=== PATIENT | female | born 1970 | race Caucasian/White ===

== ENCOUNTER 2018-08-01 07:06 | Inpatient (IN) | payer MEDICAID ==
--- OUTSIDE RECORDS SUMMARY | 2018-08-01 07:08 | XMS REPORT ---
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
--- OUTSIDE RECORDS SUMMARY | 2018-08-01 07:08 | XMS REPORT ---
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 Problem Malignant neoplasm of pancreas, C25.9 Active unspecified Problem Port-a-cath in place Z95.828 Active Problem Dietary surveillance and counseling Z71.3 Active Problem Neoplasm related pain (acute) G89.3 Active (chronic) Problem History of chemotherapy Z92.21 Active Assessment Tobacco dependence syndrome F17.200 Active Assessment Port-a-cath in place Z95.828 Active Assessment Neuropathy G62.9 Active Assessment Depression with anxiety F41.8 Active Assessment 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 Assessment 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 Assessment History of chemotherapy Z92.21 Active Assessment Neoplasm related pain (acute) G89.3 Active (chronic) Problem Neuropathy G62.9 Active Medications Medication Code Code Instructions Start End Status Dosage System Date Date Nicotine [facility] 48858942083 Jun 16Jun Active as MG/24HR 2017 Transdermal 2018 Once a day Chantix Continuing ND 17154901261 1 MG Orally Dec Inactive 1 tablet Month Craig Twice a day 2017 Xanax [facility] 36782971887 0.5 MG Orally Active 1 tablet Twice a day as needed for anxiety Zoloft ND 73402857298 100 MG Orally Active 1 tablet Once a day Methadone HCl ND 31209092295 10 MG Orally Active 1 tablet Once a day Senokot S [facility] 23502668360 8.6-50 MG Active 1 tablet Orally Once a in the day evening as needed Ibuprofen ND 07872460468 600 MG Orally Active 1 tablet Three times a with food day or milk as needed ProAir HFA [facility] 02412440605 108 (90 Base) Jun 09, Active 2 puffs as MCG/ACT 2017 needed Inhalation every 6 hrs Gabapentin [facility] 71580385893 300 MG Orally Active 1 capsule Three times a day Omeprazole [facility] 10713883599 20 MG Orally Active 1 capsule Once a day Prochlorperazine [facility] 42458672692 10 MG Orally Active 1 tablet Maleate ever 6 - 8 as needed hours PRN for Nausea Zofran [facility] 78236384888 8 MG Orally Active 1 tablet every 8 hours as needed PRN for N/V Lidocaine HCl [facility] [address]184 2.5 % Active apply 30 Externally minutes once prior to PAC access Morphine Sulfate [facility] 21654154905 30 MG Orally Active 1 tablet every 8 hours as needed PRN PNV NDC 0 orally once Active 1 tab daily Creon [facility] 45023365334 [address] Active 1-3 cap UNIT Orally with meals 3-5 times per and snacks day Results No Known Results Summary Purpose eClinicalWorks Submission
--- OUTSIDE RECORDS SUMMARY | 2018-08-01 07:08 | XMS REPORT ---
:1970 Author Organization eClinicalWorks Care Team Providers Name Role Phone Sam Burke Provider Role Unavailable Allergies No Known Allergies Problems Problem Type Condition Code Onset Dates Condition Status Problem Depression with anxiety F41.8 Active Problem Tobacco dependence syndrome F17.200 Active Problem Tobacco abuse counseling Z71.6 Active Assessment Tobacco dependence syndrome F17.200 Active Problem Neuropathy G62.9 Active Problem Secondary [...] of chemotherapy Z92.21 Active Medications Medication Code Code Instructions Start End Status Dosage System Date Date Nicotine Step NDC 92032039924 14 MG/24HR Jun 17, Jul 01, Active 1 patch to 2 Transdermal 2017 2018 skin Once a day Nicotine Step NDC 81772770761 21 MG/24HR Jun 17, Jul 29, Active 1 patch to 1 Transdermal 2017 2018 skin Once a day Nicotine Step NDC 81202553397 7 MG/24HR Jun 17, Jul 01, Active 1 patch to 3 Transdermal 2017 2018 skin Once a day Nicotine ND 43446544288 21-14-7 MG/24HR Jun 16, Inactive as directed Transdermal 2018 Once a day Results No Known Results Summary Purpose eClinicalWorks Submission
[2018-08-01] MEDS ORDERED: ALBUTEROL 2.5 MG/3 ML NEB SOL ONE ×2 (07:34→08:34)
[2018-08-01] MEDS ORDERED: IPRATROPIUM BROM 0.5MG/2.5ML ONE (07:34)
[2018-08-01] MEDS ORDERED: Magnesium Sulfate 2gm IVPB 2 G/50 ML BAG IV ONE (07:34)
[2018-08-01] MEDS ORDERED: METHYLPREDNISOLONE 125 MG INJ ONE (07:34)
[2018-08-01 08:01] LABS: Absolute Lymphocytes (CBC) 0.9 K/uL (0.7-4.9); Absolute Neutrophil 6.9 K/uL (1.8-8.0); Basophils % 0.2 % (0-1.3); Hematocrit 37.1 % (36.0-45.0); Lymphocytes % 11.4 % (15.3-44.8); MPV 7.5 fL (7.6-11.3); Monocytes % 0.2 % (3.3-12.3); RBC Red Blood Cell Count 4.03 M/uL (3.86-4.86)
[2018-08-01 08:17] LABS: BUN Blood Urea Nitrogen 13 mg/dL (7-18); Bicarbonate 31 mmol/L (21-32); Glucose Level 110 mg/dL (74-106); Potassium 3.5 mmol/L (3.5-5.1); Sodium Level 142 mmol/L (136-145)
--- NOTE | 2018-08-01 08:46 | RAD REPORT ---
EXAM DESCRIPTION: RAD - Chest Single View - 08/01/2018 8:01 am CLINICAL HISTORY: Cough, dyspnea, unknown pancreatic carcinoma metastatic to the lungs COMPARISON: CT chest July 08, 2018 TECHNIQUE: AP portable chest image was obtained 0756 hours . FINDINGS: There are numerous large rounded metastatic masses scattered throughout both lung mckeon. Pattern is grossly stable from the CT chest study of July 08. Size and number of masses obscures mu ch of the lung parenchyma. An acute infiltrative process is not seen. No pulmonary edema identifiable . Heart and vasculature are normal. No measurable pleural effusion and no pneumothorax. No acute bony abnormality seen. No acute aortic findings suspected. IMPRESSION: Numerous large metastatic masses scattered throughout the lung parenchyma grossly stable from July 08 CT imaging very Superimposed infiltrate, pulmonary edema or failure not identified.
[2018-08-01 09:00] LABS: Anisocytosis SLIGHT; Blood Morphology Comment NOTED (NOT SEEN); Platelet Estimate ADEQ; Urine White Blood Cell Casts OK
--- NOTE | 2018-08-01 09:13 | EDPHYS ---
Physician Documentation [facility] Name: Shy Easley Age: 48 yrs Sex: Female : 1970 Arrival Date: 08/01/2018 Time: 07:08 Bed 20 Private MD: Burke Vargas ED Physician Arnav Sheppard HPI: 08/01 07:54 This 48 yrs old Female presents to ER via Wheelchair with complaints of kb Breathing Difficulty. 07:54 The patient has shortness of breath at rest. Onset: The symptoms/episode began/occurred kb last night. Duration: The symptoms are continuous. The patient's shortness of breath is aggravated by exertion, is alleviated by nothing. Associated signs and symptoms: The patient has no apparent associated signs or symptoms. Severity of symptoms: At their worst the symptoms were moderate in the emergency department the symptoms are unchanged. The patient has not experienced similar symptoms in the past. The patient has not recently seen a physician. Pt reports shortness of breath that started last night. recently diagnosed with the flu. Pt has pancreatic cancer with mets to the lung and stomach, on weekly chemo. 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 - Social history:: Smoking status: Patient uses tobacco products, smokes one pack cigarettes per day. - Ebola Screening: : Patient negative for fever greater than or equal to 101.5 degrees Fahrenheit, and additional compatible Ebola Virus Disease symptoms Patient denies exposure to infectious person Patient denies travel to an Ebola-affected area in the 21 days before illness onset No symptoms or risks identified at this time. ROS: 07:54 Constitutional: Negative for fever, chills, and weight loss, Cardiovascular: Negative kb for chest pain, palpitations, and edema, Abdomen/GI: Negative for abdominal pain, nausea, vomiting, diarrhea, and constipation, Back: Negative for injury and pain, : Negative for injury, bleeding, discharge, and swelling, MS/Extremity: Negative for injury and deformity, Skin: Negative for injury, rash, and discoloration, Neuro: Negative for headache, weakness, numbness, tingling, and seizure. 07:54 Respiratory: Positive for dyspnea on exertion, shortness of breath, Negative for cough, hemoptysis, orthopnea, pleurisy, sputum production, wheezing. Exam: 07:53 Constitutional: This is a well developed, well nourished patient who is awake, alert, kb and in no acute distress. Head/Face: Normocephalic, atraumatic. Chest/axilla: Normal chest wall appearance and motion. Nontender with no deformity. No lesions are appreciated. Cardiovascular: Regular rate and rhythm with a normal S1 and S2. No gallops, murmurs, or rubs. Normal PMI, no JVD. No pulse deficits. Abdomen/GI: Soft, non-tender, with normal bowel sounds. No distension or tympany. No guarding or rebound. No evidence of tenderness throughout. Back: No spinal tenderness. No costovertebral tenderness. Full range of motion. Skin: Warm, dry with normal turgor. Normal color with no rashes, no lesions, and no evidence of cellulitis. MS/ Extremity: Pulses equal, no cyanosis. Neurovascular intact. Full, normal range of motion. Neuro: Awake and alert, GCS 15, oriented to person, place, time, and situation. Cranial nerves II-XII grossly intact. Motor strength 5/5 in all extremities. Sensory grossly intact. Cerebellar exam normal. Normal gait. 07:53 Respiratory: mild respiratory distress is noted, Respirations: labored breathing, that is mild, that is moderate, Breath sounds: decreased breath sounds, that are moderate, are located in both bases, wheezing: that is moderate, is scattered. Vital Signs: 07:14 BP 139 / 69; Pulse 90; Resp 26 S; Temp 98.3(O); Pulse Ox 92% on R/A; Weight 88 kg; em Height 5 ft. 4 in. (162.56 cm); Pain 9/10; 07:40 Pulse Ox 98% on Nebulizer Mask; em 07:58 BP 109 / 51; Pulse 87; Resp 24; Pulse Ox 93% on 2 lpm NC; em 08:58 BP 120 / 68; Pulse 97; Resp 28; Pulse Ox 88% on R/A; em 09:33 BP 121 / 55; Pulse 95; Resp 26; Pulse Ox 93% on 2 lpm NC; Pain 9/10; em 10:35 BP 102 / 47; Pulse 93; Resp 26; Pulse Ox 90% on 2 lpm NC; bp 12:05 BP 122 / 60; Pulse 84; Resp 24; Pulse Ox 91% ; bp 07:14 Body Mass Index 33.30 (88.00 kg, 162.56 cm) em MDM: 07:16 Patient medically screened. kb 07:53 Data reviewed: vital signs, nurses notes. kb 07:59 Data interpreted: Pulse oximetry: on room air is 92 %. Interpretation: acceptable. kb 09:07 Counseling: I had a detailed discussion with the patient and/or guardian regarding: the kb historical points, exam findings, and any diagnostic results supporting the discharge/admit diagnosis, lab results, radiology results, the need for further work-up and treatment in the hospital. Physician consultation: Tahira Menon MD was contacted at 09:07, regarding admission, to the telemetry unit. patient's condition, and will see patient in ED, shortly. ED course: Pt O2 sat 88-91% on room air after interventions. Will admit for obs. Pt has no home interventions for respiratory distress/SOB. . 08/01 07:21 Order name: CBC with Diff; Complete Time: 09:04 kb 08/01 07:21 Order name: Basic Metabolic Panel; Complete Time: 08:23 kb 08/01 07:21 Order name: Blood Culture Adult (2) kb 08/01 07:21 Order name: Lactate; Complete Time: 09:04 kb 08/01 07:21 Order name: Procalcitonin; Complete Time: 08:46 kb 08/01 07:21 Order name: Flu; Complete Time: 08:23 kb 08/01 07:21 Order name: Chest Single View XRAY; Complete Time: 08:51 kb 08/01 08:15 Order name: CBC Smear Scan; Complete Time: 09:04 EDMS 08/01 13:25 Order name: Lactate Sepsis 2 HR Follow-up; Complete Time: 13:26 EDMS 08/01 07:21 Order name: IV Start; Complete Time: 07:49 kb 08/01 09:31 Order name: Diet Regular; Complete Time: 09:32 em Administered Medications: 07:35 Drug: DuoNeb (3:1) (2.5 mg - 0.5 mg) 3 ml Route: Nebulizer; em 08:06 Follow up: Response: No adverse reaction; Marked relief of symptoms em 07:40 Drug: Magnesium Sulfate 2 grams Route: IVPB; Infused Over: 2 hrs; Site: left em antecubital; 09:00 Follow up: IV Status: Completed infusion iw 08:00 Drug: SOLU-Medrol 125 mg Route: IVP; Site: left antecubital; iw 08:23 Follow up: Response: No adverse reaction em 08:27 Drug: Albuterol 2.5 mg Route: Inhalation; em 08:58 Follow up: Response: No adverse reaction; Marked relief of symptoms em 08:27 Drug: Albuterol 2.5 mg Route: Inhalation; em 08:27 Drug: Albuterol 2.5 mg Route: Inhalation; em 09:17 Drug: morphine 4 mg Route: IVP; Site: left antecubital; iw 09:47 Follow up: Response: No adverse reaction em 12:03 Drug: morphine 4 mg Route: IVP; Site: left antecubital; bp 13:48 Follow up: Response: No adverse reaction; Pain is decreased iw 12:03 Drug: Zofran 4 mg Route: IVP; Site: left antecubital; bp 13:48 Follow up: Response: No adverse reaction iw Disposition: 18:50 Co-signature as Attending Physician, Arnav Sheppard MD Available for consultation at ps1 all times . Disposition: 08/01/18 09:11 Hospitalization ordered by Tahira Menon for Observation. Preliminary diagnosis are Hypoxia, Pancreatic cancer with metastasis to lung, Dyspnea. - Bed requested for Telemetry/MedSurg (observation). - Status is Observation. iw - Condition is Stable. - Problem is an acute exacerbation. - Symptoms are unchanged. UTI on Admission? No Signatures: Dispatcher [employer] Baylee Cortez FNP-C FNP-Ckb Webb, Martha RN NICHO Aristides Cuevas, SIGNAL TOWER DIRECTOR SIGNAL TOWER DIRECTOR em Swapna Lopez, NICHO TORRE iw Trey Soares, RN Arnav Ty MD MD ps1 Corrections: (The following items were deleted from the chart) 07:55 07:54 Pt reports shortness of breath that started last night. recently kb diagnosed with the flu. Pt has pancreatic cancer with mets to the lung and stomach. kb 12:53 09:11 Hospitalization Ordered by Tahira Menon MD for Observation. Preliminary diagnosis mw is Hypoxia; Pancreatic cancer with metastasis to lung; Dyspnea. Bed requested for Telemetry/MedSurg (observation). Status is Observation. Condition is Stable. Problem is an acute exacerbation. Symptoms are unchanged. UTI on Admission? No. kb 14:13 12:53 08/01/2018 09:11 Hospitalization Ordered by Tahira Menon MD for Observation. iw Preliminary diagnosis is Hypoxia; Pancreatic cancer with metastasis to lung; Dyspnea. Bed requested for Telemetry/MedSurg (observation). Status is Observation. Condition is Stable. Problem is an acute exacerbation. Symptoms are unchanged. UTI on Admission? No. mw
--- NOTE | 2018-08-01 09:13 | ER ---
Nurse's Notes [facility] Name: Shy Easley Age: 48 yrs Sex: Female : 1970 Arrival Date: 08/01/2018 Time: 07:08 Bed 20 Private MD: Burke Vargas Diagnosis: Hypoxia;Pancreatic cancer with metastasis to lung;Dyspnea Presentation: 08/01 07:14 Presenting complaint: Patient states: shortness of breath since last night with cough, em daughter states her was dx with the flu yesterday, denies fever, pt also has hx of pancreatic cancer that metastasized to lungs, lymph nodes, and lining of the stomach, pt wheezy cinda. RR 26, SPO2 92% RA. 07:14 Transition of care: patient was not received from another setting of care. Onset of em symptoms was July 31, 2017. Risk Assessment: Do you want to hurt yourself or someone else? Patient reports no desire to harm self or others. Initial Sepsis Screen: Does the patient meet any 2 criteria? RR > 20 per min. HR > 90 bpm. Does the patient have a suspected source of infection? Yes: Productive cough/pneumonia. Care prior to arrival: None. 07:14 Method Of Arrival: Wheelchair em 07:42 Acuity: BARBER 3 iw Triage Assessment: 07:14 General: Appears uncomfortable, Behavior is cooperative, anxious. Pain: Complains of em pain in left lower quadrant Pain currently is 9 out of 10 on a pain scale. Neuro: Level of Consciousness is awake, alert, obeys commands, Oriented to person, place, time, situation. Cardiovascular: Denies chest pain. Respiratory: Reports shortness of breath cough that is productive, Airway is patent Respiratory effort is even, Respiratory pattern is tachypnea Breath sounds with wheezes bilaterally. Onset: The symptoms/episode began/occurred yesterday, the patient has moderate shortness of breath. 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 - Social history:: Smoking status: Patient uses tobacco products, smokes one pack cigarettes per day. - Ebola Screening: : Patient negative for fever greater than or equal to 101.5 degrees Fahrenheit, and additional compatible Ebola Virus Disease symptoms Patient denies exposure to infectious person Patient denies travel to an Ebola-affected area in the 21 days before illness onset No symptoms or risks identified at this time. Screenin:14 Abuse screen: Denies threats or abuse. Nutritional screening: No deficits noted. em Tuberculosis screening: No symptoms or risk factors identified. Fall Risk None identified. Assessment: 07:14 General: Appears uncomfortable, Behavior is cooperative, anxious. Pain: Complains of em pain in left lower quadrant Pain currently is 9 out of 10 on a pain scale. Neuro: Level of Consciousness is awake, alert, obeys commands, Oriented to person, place, time, situation. Cardiovascular: Denies chest pain, Rhythm is regular. Respiratory: Airway is patent Respiratory effort is even, Respiratory pattern is tachypnea. GI: Abdomen is round non-distended. : No signs and/or symptoms were reported regarding the genitourinary system. Derm: Skin is intact, Skin is pink, warm \T\ dry. Musculoskeletal: Range of motion: intact in all extremities. 07:14 Reassessment: I agree with assessment completed by Mansi Cuevas LVN . aa5 08:00 Reassessment: Patient appears in no apparent distress at this time. Patient and/or em family updated on plan of care and expected duration. Pain level reassessed. Patient is alert, oriented x 3, equal unlabored respirations, skin warm/dry/pink. SPO2 92% RA, placed on 2 L via NC Patient states symptoms have improved. 09:00 Reassessment: Patient appears in no apparent distress at this time. Patient and/or em family updated on plan of care and expected duration. Pain level reassessed. Patient is alert, oriented x 3, equal unlabored respirations, skin warm/dry/pink. reports taking morphine and xanax at home, provider notified, new medication orders received Patient states feeling better. Patient states symptoms have improved. 09:51 Reassessment: Patient appears in no apparent distress at this time. Patient and/or em family updated on plan of care and expected duration. Pain level reassessed. Patient is alert, oriented x 3, equal unlabored respirations, skin warm/dry/pink. breakfast tray given, pending room assignment. 10:19 Reassessment: RECD REPORT FROM MANSI RN. 48YO HF P/W SOB/COUGH x1 WK. ADMIT IN PROCESS bp FOR MT LUNG CA. Vital Signs: 07:14 BP 139 / 69; Pulse 90; Resp 26 S; Temp 98.3(O); Pulse Ox 92% on R/A; Weight 88 kg; em Height 5 ft. 4 in. (162.56 cm); Pain 9/10; 07:40 Pulse Ox 98% on Nebulizer Mask; em 07:58 BP 109 / 51; Pulse 87; Resp 24; Pulse Ox 93% on 2 lpm NC; em 08:58 BP 120 / 68; Pulse 97; Resp 28; Pulse Ox 88% on R/A; em 09:33 BP 121 / 55; Pulse 95; Resp 26; Pulse Ox 93% on 2 lpm NC; Pain 9/10; em 10:35 BP 102 / 47; Pulse 93; Resp 26; Pulse Ox 90% on 2 lpm NC; bp 12:05 BP 122 / 60; Pulse 84; Resp 24; Pulse Ox 91% ; bp 07:14 Body Mass Index 33.30 (88.00 kg, 162.56 cm) em ED Course: 07:08 Patient arrived in ED. mr 07:09 Burke Vargas DO is Private Physician. mr 07:14 Arm band placed on. em 07:14 Patient has correct armband on for positive identification. Placed in gown. Bed in low em position. Call light in reach. Side rails up X2. Adult w/ patient. stone carriage operator on. Pulse ox on. NIBP on. Warm blanket given. Pillow given. 07:16 Baylee Owens FNP-C is PHCP. kb 07:16 Arnav Sheppard MD is Attending Physician. kb 07:21 Mansi Cuevas LVN is Primary Nurse. em 07:40 Inserted saline lock: 20 gauge in left antecubital area, using aseptic technique. Blood em collected. 07:40 Initial lab(s) drawn, by me, sent to lab. First set of blood cultures drawn by me, Flu em and/or RSV swab sent to lab. 07:42 Triage completed. iw 08:02 Chest Single View XRAY In Process Unspecified. EDMS 09:10 Tahira Menno MD is Hospitalizing Provider. kb 10:06 Primary Nurse role handed off by Mansi Cuevas LVN bp 10:06 Trey Soares, NICHO is Primary Nurse. bp 13:47 No provider procedures requiring assistance completed. Patient admitted, IV remains in iw place. Administered Medications: 07:35 Drug: DuoNeb (3:1) (2.5 mg - 0.5 mg) 3 ml Route: Nebulizer; em 08:06 Follow up: Response: No adverse reaction; Marked relief of symptoms em 07:40 Drug: Magnesium Sulfate 2 grams Route: IVPB; Infused Over: 2 hrs; Site: left em antecubital; 09:00 Follow up: IV Status: Completed infusion iw 08:00 Drug: SOLU-Medrol 125 mg Route: IVP; Site: left antecubital; iw 08:23 Follow up: Response: No adverse reaction em 08:27 Drug: Albuterol 2.5 mg Route: Inhalation; em 08:58 Follow up: Response: No adverse reaction; Marked relief of symptoms em 08:27 Drug: Albuterol 2.5 mg Route: Inhalation; em 08:27 Drug: Albuterol 2.5 mg Route: Inhalation; em 09:17 Drug: morphine 4 mg Route: IVP; Site: left antecubital; iw 09:47 Follow up: Response: No adverse reaction em 12:03 Drug: morphine 4 mg Route: IVP; Site: left antecubital; bp 13:48 Follow up: Response: No adverse reaction; Pain is decreased iw 12:03 Drug: Zofran 4 mg Route: IVP; Site: left antecubital; bp 13:48 Follow up: Response: No adverse reaction iw Outcome: 09:11 Decision to Hospitalize by Provider. kb 13:47 Admitted to Tele accompanied by tech, via stretcher, room 225, with oxygen, with chart, iw Report called to NICHO Roque 13:47 Condition: good 13:47 Discharge instructions given to patient, Instructed on the need for admit. 14:13 Patient left the ED. iw Signatures: Dispatcher [employer] EDMS Baylee Owens, SURESH AMBRIZP-Cklavonne Shy Andres mr Mansi Cuevas LVN CYBER SECURITY ANALYST em Swapna Lopez, RN RN iw Kori Otero RN RN aa5 Trey Soares RN RN bp Corrections: (The following items were deleted from the chart) 08:46 08:00 Reassessment: Patient appears in no apparent distress at this time. Patient em and/or family updated on plan of care and expected duration. Pain level reassessed. Patient is alert, oriented x 3, equal unlabored respirations, skin warm/dry/pink. Patient states symptoms have improved. em 09:36 09:00 Reassessment: Patient appears in no apparent distress at this time. Patient em and/or family updated on plan of care and expected duration. Pain level reassessed. Patient is alert, oriented x 3, equal unlabored respirations, skin warm/dry/pink. reports taking morphine and xanax at home, provider notified, new medication orders received iw 09:37 09:33 BP 121 / 55; Pulse 95bpm; Resp 26bpm; Pulse Ox 93% 2 lpm Nasal Cannula; iw em
[2018-08-01] MEDS ORDERED: MORPHINE 4 MG/ML SYR ONE ×2 (09:23→12:07)
[2018-08-01] MEDS ORDERED: ONDANSETRON 4 MG/2 ML VIAL ONE (12:07)
[2018-08-01] MEDS ORDERED: ACETAMINOPHEN 500 MG TAB PO PRN (13:35)
[2018-08-01] MEDS: NA CHLORIDE 0.9% 1,000 ML IV SCH ×2 (14:32→23:35)
[2018-08-01] MEDS ORDERED: FUROSEMIDE 20 MG/ 2ML VIAL IV ONE (16:45)
[2018-08-01] MEDS: FENTANYL CITR 100 MCG/2 ML IV PRN ×2 (17:11→20:56)
[2018-08-01] MEDS: IPRATROPIUM BROM 0.5MG/2.5ML NEB SCH (20:00)
[2018-08-01] MEDS: ALBUTEROL 2.5 MG/3 ML NEB SOL NEB SCH (20:00)
[2018-08-01] MEDS ORDERED: ALPRAZOLAM 0.5 MG TABLET PO PRN (20:03)
[2018-08-01] MEDS: SERTRALINE HCL 100 MG TAB PO SCH (20:56)
[2018-08-01] MEDS: MORPHINE *EXTENDED RELEASE* 15 MG TAB PO SCH (22:15)
[2018-08-01] MEDS ORDERED: METOPROLOL TAR 50 MG TAB PO ONE (23:10)
[2018-08-01] MEDS: ONDANSETRON 4 MG/2 ML VIAL IV PRN (23:13)
[2018-08-02] MEDS ORDERED: RSI MEDICATION KIT IV ONE (00:43)
[2018-08-02] MEDS ORDERED: MIDAZOLAM HCL 2 MG/2 ML INJ ONE (00:50)
[2018-08-02] MEDS ORDERED: OSELTAMIVIR 75 MG CAP PO ONE (01:22)
[2018-08-02] MEDS ORDERED: HYDROCORTISONE SUC 100 MG INJ IV ONE ×2 (01:23→07:54)
[2018-08-02] MEDS ORDERED: METOPROLOL TARTRATE 5 MG/5 ML INJ IV ONE (01:36)
[2018-08-02] MEDS ORDERED: PROPOFOL 1,000 MG/100 ML VIAL IV ONE (01:46)
[2018-08-02] MEDS: ALBUTEROL 2.5 MG/3 ML NEB SOL NEB SCH ×2 (02:00→07:50)
[2018-08-02] MEDS: IPRATROPIUM BROM 0.5MG/2.5ML NEB SCH ×4 (02:00→19:43)
[2018-08-02] MEDS ORDERED: Levofloxacin 750mg IV 750 MG/150 ML BAG IV SCH (02:00)
[2018-08-02] MEDS ORDERED: PIPERACIL/TAZO 3.375 GM VIAL IV ONE (02:26)
[2018-08-02] MEDS ORDERED: NA CHLORIDE 0.9% 100 ML ONE (02:34)
[2018-08-02] MEDS: PIPER/TAZO/NS 3.375gm 3.375 GM/100 ML BAG IVPB SCH ×2 (02:37→06:00)
[2018-08-02] MEDS ORDERED: VANCOMYCIN 1 GM/250 ML BAG ONE (02:38)
[2018-08-02 02:50] LABS: Arterial Blood Carboxyhemoglob 1.3 % (0-1.5); Blood O2 Saturation 99.9 % (92-98.5)
[2018-08-02] MEDS ORDERED: VANCOMYCIN 500 MG/VIAL ONE (02:52)
[2018-08-02] MEDS ORDERED: VANCOMYCIN 1.5 GM in NA CHLORIDE 0.9% 500 ML IVPB SCH (04:00)
[2018-08-02] MEDS ORDERED: VANCOMYCIN 1.25 GM in NA CHLORIDE 0.9% 250 ML IVPB SCH (04:00)
[2018-08-02] MEDS: LORazepam 2 MG/ML VIAL IV PRN ×6 (04:11→21:47)
[2018-08-02] MEDS ORDERED: NA CHLORIDE 0.9% 250 ML IV ONE (05:00)
[2018-08-02 05:23] LABS: Absolute Lymphocytes (CBC) 0.5 K/uL (0.7-4.9); Absolute Monocytes 0.1 K/uL (0.1-1.3); Absolute Neutrophil 11.1 K/uL (1.8-8.0); Basophils % 0.1 % (0-1.3); Hematocrit 34.9 % (36.0-45.0); Lymphocytes % 4.2 % (15.3-44.8); MPV 7.4 fL (7.6-11.3); Monocytes % 0.9 % (3.3-12.3); RBC Red Blood Cell Count 3.81 M/uL (3.86-4.86)
[2018-08-02 05:24] LABS: Urine Appearance CLEAR; Urine Bilirubin NEGATIVE (NEG); Urine Blood NEGATIVE (NEG); Urine Color YELLOW; Urine Glucose NEGATIVE (NEG); Urine Protein 1+ (NEG); Urine Specific Gravity >=1.030 (1.005-1.030); Urine pH 5.5 (5.0-7.0)
[2018-08-02 05:45] LABS: ALT/SGPT 43 U/L (12-78); AST/SGOT 65 U/L (15-37); Albumin 2.2 g/dL (3.4-5.0); Alkaline Phosphatase 128 U/L (45-117); BUN Blood Urea Nitrogen 16 mg/dL (7-18); Bicarbonate 32 mmol/L (21-32); Bilirubin Total 0.6 mg/dL (0.2-1.0); Glucose Level 136 mg/dL (74-106); Potassium 4.1 mmol/L (3.5-5.1); Protein, Total 6.4 g/dL (6.4-8.2); Sodium Level 144 mmol/L (136-145)
[2018-08-02 05:48] LABS: Urine Microscopic Reflex ORDER UMIC
[2018-08-02 05:58] LABS: Urine Bacteria <20 /HPF (<20); Urine Culture Reflex Order NOT NEEDED; Urine RBC NONE SEEN /HPF (NONE SEEN)
[2018-08-02] MEDS: MORPHINE *EXTENDED RELEASE* 15 MG TAB PO SCH ×2 (06:00→17:00)
[2018-08-02] MEDS ORDERED: NA CHLORIDE 0.9% 500 ML IV ONE (06:21)
[2018-08-02] MEDS: NA CHLORIDE 0.9% 1,000 ML IV SCH ×2 (06:48→15:50)
[2018-08-02] MEDS: FENTANYL CITR 100 MCG/2 ML IV PRN ×5 (07:35→23:30)
[2018-08-02 07:37] LABS: Blood Morphology Comment NOTED (NOT SEEN); Platelet Estimate ADEQ; Urine White Blood Cell Casts OK
[2018-08-02 07:38] LABS: Teardrop Cell 1+
[2018-08-02] MEDS ORDERED: ALBUMIN HUMAN 25% 100 ML IV ONE (07:53)
[2018-08-02] MEDS: OSELTAMIVIR 75 MG CAP PO SCH ×2 (08:33→21:02)
[2018-08-02] MEDS: SERTRALINE HCL 100 MG TAB PO SCH ×2 (08:33→11:52)
--- NOTE | 2018-08-02 08:38 | P.PN ---
Subjective Date of Service: 08/02/18 called to evaluate the patient because her O2 requirements have gone up and she became suddenly unresponsive after talking to nurse all night. Patient's pupils were equal and reactive. However she was struggling to breathe. X-ray showed diffuse metastasis. No antibiotics at this time. The patient will need intubation. Review of Systems is unable to be obtained Physical Examination - Vital Signs Temperature: 97 F Blood Pressure: 102/62 Pulse: 84 Respirations: 23 Pulse Ox (%): 97 - Physical Exam General: Other ( intubated and sedated) Respiratory: Diminished, Rhonchi/gurgles Cardiovascular: Regular rate/rhythm, Normal S1 S2 Gastrointestinal: Soft and benign, Non-distended, No tenderness Musculoskeletal: No clubbing, No swelling - Studies Microbiology Data (last 24 hrs): 08/01/18 07:40 Nasopharnyx Influenza Type A Antigen Screen - Final 08/01/18 07:40 Nasopharnyx Influenza Type B Antigen Screen - Final Assessment & Plan - Problems (Diagnosis) (1) Pancreatic cancer metastasized to intra-abdominal lymph node Current Visit: Yes Status: Acute (2) Pulmonary metastasis Current Visit: Yes Status: Acute (3) Respiratory failure Current Visit: Yes Status: Acute - Plan plan: 1. Mechanical ventilation 2. pulmonary consultation 3. Treatment with Tamiflu and IV antibiotics 4. IV steroids 5. spoke with family - patient's daughter - and at this time patient is a full code 6. GI and DVT prophylaxis Discharge Plan: Home Plan to discharge in: Greater than 2 days - Advance Directives Does patient have a Living Will: No Does patient have a Durable POA for Healthcare: No Critical Care: Yes Time Spent Managing PTS Care (In Minutes): 55
[2018-08-02] MEDS ORDERED: predniSONE 20 MG TAB PO SCH (09:00)
[2018-08-02] MEDS ORDERED: METOPROLOL TAR 50 MG TAB PO SCH (09:00)
[2018-08-02] MEDS ORDERED: HYDROCORTISONE SUC 100 MG INJ IV SCH ×2 (09:00→21:00)
[2018-08-02] MEDS ORDERED: PIPER/TAZO/NS 3.375gm 3.375 GM/100 ML BAG IVPB SCH (09:00)
--- NOTE | 2018-08-02 10:49 | P.CNS ---
Date of Consult: 08/02/18 Chief Complaint: Respiratory failure patient on a ventilator History of Present Illness: Patient is 48 years of age with a history of pancreatic cancer with mets to the lungs admitted with shortness of breath became unresponsive patient was intubated transferred to the ICU currently on a propofol drip patient had hypercapnic hypoxic respiratory failure with acidosis blood pressure is little low DT scan is very abnormal with bilateral lung masses. On Chemo and radiation. Allergies Tetracyclines Allergy (Verified 02/15/17 16:30) Hives Home Medications: ALPRAZolam [Xanax] 0.5 mg PO BID PRN 08/01/18 Dexamethasone [Decadron] 4 mg PO BID 08/01/18 Gabapentin 300 mg PO TID 08/01/18 Morphine Sulfate [Morphine Sulfate ER] 30 mg PO Q8H 08/01/18 Omeprazole 20 mg PO DAILY 08/01/18 Prochlorperazine Maleate [Compazine] 10 mg PO Q8H PRN 08/01/18 Sertraline [Zoloft] 100 mg PO DAILY 08/01/18 Venlafaxine HCl [Venlafaxine HCl ER] 150 mg PO BEDTIME 08/01/18 - Past Medical/Surgical History Diabetic: No -: COPD -: Obesity -: GERD -: Depression -: Tobacco abuse -: Fibromyalgia -: Tonsillectomy -: Appendectomy -: -: Hysterectomy Psychosocial/ Personal History: The patient is . She is originally from [place]. She is visiting her daughter in the area. She has 2 children. 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 - Family History Mother Medical History: Heart disease, Lung disease Notes: COPD Brother Medical History: Heart disease Sister Medical History: Other (see notes) Notes: COPD - Social History Smoking Status: Current every day smoker Alcohol use: No CD- Drugs: No Caffeine use: No Place of Residence: Home Review of Systems is unable to be obtained Physical Examination Temp Pulse Resp BP Pulse Ox 97 F 76 16 96/60 94 08/02/18 09:28 08/02/18 10:00 08/02/18 10:00 08/02/18 10:00 08/02/18 10:00 General: Unresponsive Respiratory: Clear to auscultation bilaterally Cardiovascular: No edema Gastrointestinal: Normal bowel sounds, Soft and benign - Problems (1) Respiratory failure Current Visit: Yes Status: Acute Plan: Patient is 48 years of age with pancreatic cancer with impressive metastases to the lungs admitted with unresponsiveness hypoxic hypercapnic acidotic currently on a ventilator labs reviewed doubt sepsis CT angiogram reading is pending I do not see any obvious blood clots I doubt if he has sepsis patient is a current every day smoker presumed underlying COPD there is currently no evidence of sepsis Dc all antibiotics use IV steroids bronchodilators plan to wean and extubate the discuss with family members regarding DNR Qualifiers: Chronicity: acute on chronic Respiratory failure complication: hypoxia and hypercapnia Qualified Code(s): J96.21 - Acute and chronic respiratory failure with hypoxia; J96.22 - Acute and chronic respiratory failure with hypercapnia
[2018-08-02] MEDS ORDERED: MORPHINE SULFATE 30 MG PO SCH (11:00)
--- NOTE | 2018-08-02 11:10 | P.HP ---
Certification for Inpatient Patient admitted to: Inpatient With expected LOS: >2 Midnights Patient will require the following post-hospital care: None Practitioner: I am a practitioner with admitting privileges, knowledge of patient current condition, hospital course, and medical plan of care. Services: Services provided to patient in accordance with Admission requirements found in Title 42 Section 412.3 of the Code of Federal Regulations Patient History Date of Service: 08/01/18 Reason for admission: Respiratory failure patient on a ventilator History of Present Illness: 48-year-old female with significant past medical history of drug abuse, tobacco abuse, COPD exacerbation pancreatic cancer with mets to lungs intra-abdominal lymph nodes, liver currently on chemotherapy presented to the ED complaining of having some shortness of breath x2. Patient recently this around people from her family that had been diagnosed with influenza pneumonia. Patient did complain of fever and chills at the house as well along with shortness of breath. No sputum production at this time. Negative for cough as well. No other complaints to offer at this time. In the ER patient had extensive workup done along with chest x-ray and CT in which was negative for PE. Patient was thus admitted to the hospital for respiratory distress most likely secondary to her COPD exacerbation. Allergies Tetracyclines Allergy (Verified 02/15/17 16:30) Hives Home Medications: ALPRAZolam [Xanax] 0.5 mg PO BID PRN 08/01/18 Dexamethasone [Decadron] 4 mg PO BID 08/01/18 Gabapentin 300 mg PO TID 08/01/18 Morphine Sulfate [Morphine Sulfate ER] 30 mg PO Q8H 08/01/18 Omeprazole 20 mg PO DAILY 08/01/18 Prochlorperazine Maleate [Compazine] 10 mg PO Q8H PRN 08/01/18 Sertraline [Zoloft] 100 mg PO DAILY 08/01/18 Venlafaxine HCl [Venlafaxine HCl ER] 150 mg PO BEDTIME 08/01/18 - Past Medical/Surgical History Has patient received pneumonia vaccine in the past: No Diabetic: No -: COPD -: Obesity -: GERD -: Depression -: Tobacco abuse -: Fibromyalgia -: Tonsillectomy -: Appendectomy -: -: Hysterectomy Psychosocial/ Personal History: The patient is . She is originally from [place]. She is visiting her daughter in the area. She has 2 children. 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 - Family History Mother -: Heart disease, Lung disease Notes: COPD Brother -: Heart disease Sister -: Other (see notes) Notes: COPD - Social History Smoking Status: Former smoker Alcohol use: No CD- Drugs: No Caffeine use: No Place of Residence: Home Review of Systems 10-point ROS is otherwise unremarkable Physical Examination - Vital Signs Temperature: 97 F Blood Pressure: 96/60 Pulse: 76 Respirations: 16 Pulse Ox (%): 94 - Physical Exam General: Alert, Acute distress HEENT: Atraumatic, PERRLA, Mucous membr. moist/pink, EOMI, Sclerae nonicteric Neck: Supple, 2+ carotid pulse no bruit, No LAD, Without JVD or thyroid abnormality Respiratory: Normal air movement, Expiratory wheezes, Inspiratory wheezes Cardiovascular: Regular rate/rhythm, Normal S1 S2 Gastrointestinal: Normal bowel sounds, Soft and benign, No tenderness Musculoskeletal: No tenderness Integumentary: No rashes Neurological: Normal speech, Normal tone Lymphatics: No axilla or inguinal lymphadenopathy - Studies Microbiology Data (last 24 hrs): 08/01/18 07:40 Nasopharnyx Influenza Type A Antigen Screen - Final 08/01/18 07:40 Nasopharnyx Influenza Type B Antigen Screen - Final Assessment and Plan - Problems (Diagnosis) (1) Respiratory distress Current Visit: Yes Status: Acute Plan: Acute respiratory distress most likely secondary to pulmonary mets versus COPD exacerbation -pulmonology consulted. Awaiting recommendations at this -patient will be started on duo nebs, steroids and oxygen at this time -will monitor closely (2) COPD (chronic obstructive pulmonary disease) Onset Date: 02/17/17 Current Visit: No Status: Chronic Plan: COPD exacerbation -DuoNeb, steroids, oxygen at this time -pulmonology consulted. Appreciated recommendations -CTA to rule out PE -chest without contrast consistent with pulmonary nodule Qualifiers: COPD type: COPD with acute exacerbation Qualified Code(s): J44.1 - Chronic obstructive pulmonary disease with (acute) exacerbation (3) Pancreatic cancer metastasized to intra-abdominal lymph node Current Visit: Yes Status: Acute Plan: Pancreatic cancer with metastasis to lymph nodes. Lungs possible brain at this time as well -currently getting chemotherapy with Oncology here in [place] -will consult oncology for acute illness worsens (4) Depression Onset Date: 02/17/17 Current Visit: No Status: Chronic Qualifiers: Depression Type: unspecified Qualified Code(s): F32.9 - Major depressive disorder, single episode, unspecified (5) GERD (gastroesophageal reflux disease) Onset Date: 02/17/17 Current Visit: No Status: Chronic Qualifiers: Esophagitis presence: esophagitis presence not specified Qualified Code(s) : K21.9 - Gastro-esophageal reflux disease without esophagitis (6) Obesity Onset Date: 02/17/17 Current Visit: No Status: Chronic Qualifiers: Obesity type: unspecified obesity type Obesity classification: adult class 3 (BMI >= 40) Body mass index: BMI 40.0-44.9 (7) Tobacco abuse Onset Date: 02/17/17 Current Visit: No Status: Chronic Discharge Plan: Home Plan to discharge in: 48 Hours - Advance Directives Does patient have a Living Will: No Does patient have a Durable POA for Healthcare: No - Code Status/Comfort Care Code Status Assessed: Yes Critical Care: No
--- NOTE | 2018-08-02 11:14 | P.PN ---
Subjective Date of Service: 08/02/18 Chief Complaint: Respiratory failure patient on a ventilator Patient seen and examined at bedside with RN. Chart reviewed. Case discussed with pulmonology at this time. Overnight patient patient had worsening of her respiratory distress, became hypoxic and had to be intubated and was transferred to the ICU. Currently in ICU doing well no complaints to offer this morning. Review of Systems 10-point ROS is otherwise unremarkable Physical Examination - Vital Signs Temperature: 97 F Blood Pressure: 96/60 Pulse: 76 Respirations: 16 Pulse Ox (%): 94 - Physical Exam General: Mild distress, Other (Intubated) HEENT: Atraumatic, PERRLA, EOMI Neck: Supple, JVD not distended Respiratory: Normal air movement, Expiratory wheezes, Inspiratory wheezes Cardiovascular: Regular rate/rhythm, Normal S1 S2 Gastrointestinal: Normal bowel sounds, No tenderness Musculoskeletal: No tenderness Integumentary: No rashes Neurological: Normal tone, Normal affect Lymphatics: No axilla or inguinal lymphadenopathy - Studies Microbiology Data (last 24 hrs): 08/01/18 07:40 Nasopharnyx Influenza Type A Antigen Screen - Final 08/01/18 07:40 Nasopharnyx Influenza Type B Antigen Screen - Final Medications List Reviewed: Yes Assessment And Plan - Current Problems (Diagnosis) (1) Respiratory distress Current Visit: Yes Status: Acute Plan: Now with respiratory failure most likely secondary to pulmonary mets versus COPD exacerbation. However infection cannot be ruled out -currently intubated -pro calcitonin elevated at this time white count with slight elevation as well. -started on IV antibiotics overnight. -pulmonology consulted. Recommendation appreciated at this time -Dc IV antibiotics -continue with steroids and DuoNeb treatments -weaned off of mechanical ventilator as tolerated -patient on duo nebs, steroids and intubated at this time -the still is currently also on Tamiflu. Will continue at her next 24 hr -monitor patient close (2) COPD (chronic obstructive pulmonary disease) Onset Date: 02/17/17 Current Visit: No Status: Chronic Plan: COPD exacerbation -DuoNeb, steroids, intubated at this time -pulmonology consulted. Appreciated recommendations -CTA negative for PE -chest without contrast consistent with pulmonary nodule most likely meds from pancreatic cancer Qualifiers: COPD type: COPD with acute exacerbation Qualified Code(s): J44.1 - Chronic obstructive pulmonary disease with (acute) exacerbation (3) Pancreatic cancer metastasized to intra-abdominal lymph node Current Visit: Yes Status: Acute Plan: Pancreatic cancer with metastasis to lymph nodes. Lungs possible brain at this time as well -currently getting chemotherapy with Oncology here in [place] -will consult oncology for acute illness worsens (4) Depression Onset Date: 02/17/17 Current Visit: No Status: Chronic Qualifiers: Depression Type: unspecified Qualified Code(s): F32.9 - Major depressive disorder, single episode, unspecified (5) GERD (gastroesophageal reflux disease) Onset Date: 02/17/17 Current Visit: No Status: Chronic Qualifiers: Esophagitis presence: esophagitis presence not specified Qualified Code(s) : K21.9 - Gastro-esophageal reflux disease without esophagitis (6) Obesity Onset Date: 02/17/17 Current Visit: No Status: Chronic Qualifiers: Obesity type: unspecified obesity type Obesity classification: adult class 3 (BMI >= 40) Body mass index: BMI 40.0-44.9 (7) Tobacco abuse Onset Date: 02/17/17 Current Visit: No Status: Chronic - Plan Will monitor here in ICU closely. Will wean as tolerated with mechanical ventilator. Will continue with current management of COPD exacerbation. Discharge Plan: Other Plan to discharge in: Greater than 2 days - Code Status/Comfort Care Code Status Assessed: Yes Critical Care: No
[2018-08-02 11:16] LABS: Absolute Lymphocytes (CBC) 0.3 K/uL (0.7-4.9); Absolute Monocytes 0.1 K/uL (0.1-1.3); Absolute Neutrophil 8.9 K/uL (1.8-8.0); Basophils % 0.5 % (0-1.3); Hematocrit 31.8 % (36.0-45.0); Lymphocytes % 3.7 % (15.3-44.8); MPV 7.2 fL (7.6-11.3); Monocytes % 0.6 % (3.3-12.3); RBC Red Blood Cell Count 3.52 M/uL (3.86-4.86)
[2018-08-02 11:34] LABS: ALT/SGPT 38 U/L (12-78); AST/SGOT 55 U/L (15-37); Albumin 2.5 g/dL (3.4-5.0); Alkaline Phosphatase 114 U/L (45-117); BUN Blood Urea Nitrogen 17 mg/dL (7-18); Bicarbonate 31 mmol/L (21-32); Bilirubin Total 0.5 mg/dL (0.2-1.0); Glucose Level 108 mg/dL (74-106); Potassium 4.2 mmol/L (3.5-5.1); Protein, Total 6.4 g/dL (6.4-8.2); Sodium Level 144 mmol/L (136-145)
[2018-08-02] MEDS ORDERED: PANTOPRAZOLE 40MG TABLET PO SCH (12:00)
[2018-08-02] MEDS: METHYLPREDNISOLONE 40 MG INJ IV SCH ×2 (12:01→16:21)
[2018-08-02] MEDS: Pantoprazole (granules) 40 MG/BLIST PACKET FT SCH (12:08)
[2018-08-02] MEDS: LEVALBUTEROL 1.25 MG/3 ML NEB NEB SCH ×2 (13:00→19:43)
[2018-08-02] MEDS ORDERED: IPRATROPIUM BROM 0.5MG/2.5ML NEB SCH (14:00)
[2018-08-02] MEDS ORDERED: SUCCINYLCHOLINE 20 MG/ML (10 ML) IV ONE (15:52)
[2018-08-02] MEDS ORDERED: VECURONIUM 10 MG/VIAL IV ONE (15:52)
[2018-08-02] MEDS ORDERED: WATER FOR INJ,STERILE 10 ML IV ONE (15:52)
[2018-08-02] MEDS ORDERED: LIDOCAINE 1% MPF 5 ML VIAL IJ ONE (15:52)
[2018-08-02] MEDS ORDERED: VANCOMYCIN 1.75 GM in NA CHLORIDE 0.9% 500 ML IVPB SCH (16:00)
[2018-08-03] MEDS: METHYLPREDNISOLONE 40 MG INJ IV SCH ×3 (00:26→17:09)
[2018-08-03] MEDS: MORPHINE *EXTENDED RELEASE* 15 MG TAB PO SCH ×3 (00:26→16:50)
[2018-08-03] MEDS: IPRATROPIUM BROM 0.5MG/2.5ML NEB SCH ×4 (00:59→20:00)
[2018-08-03] MEDS: LEVALBUTEROL 1.25 MG/3 ML NEB NEB SCH ×4 (00:59→20:00)
[2018-08-03] MEDS: NA CHLORIDE 0.9% 1,000 ML IV SCH ×3 (01:00→22:20)
[2018-08-03] MEDS: LORazepam 2 MG/ML VIAL IV PRN ×4 (01:00→18:25)
[2018-08-03] MEDS: FENTANYL CITR 100 MCG/2 ML IV PRN ×5 (03:19→20:14)
[2018-08-03] MEDS: OSELTAMIVIR 75 MG CAP PO SCH ×2 (08:32→20:14)
[2018-08-03] MEDS: ALPRAZOLAM 0.5 MG TABLET PO PRN ×2 (08:32→20:13)
[2018-08-03] MEDS: SERTRALINE HCL 100 MG TAB PO SCH (08:32)
[2018-08-03] MEDS ORDERED: HOME MED 1 EA UNK (Omeprazole [Omeprazole] 20 MG) PO SCH (09:00)
[2018-08-03] MEDS: Pantoprazole (granules) 40 MG/BLIST PACKET FT SCH (09:27)
[2018-08-03 09:28] LABS: Absolute Lymphocytes (CBC) 0.4 K/uL (0.7-4.9); Absolute Monocytes 0.1 K/uL (0.1-1.3); Absolute Neutrophil 2.8 K/uL (1.8-8.0); Basophils % 0.2 % (0-1.3); Hematocrit 31.8 % (36.0-45.0); Lymphocytes % 11.2 % (15.3-44.8); MPV 7.4 fL (7.6-11.3); Monocytes % 2.1 % (3.3-12.3); RBC Red Blood Cell Count 3.52 M/uL (3.86-4.86)
[2018-08-03 09:35] LABS: ALT/SGPT 32 U/L (12-78); AST/SGOT 42 U/L (15-37); Albumin 2.3 g/dL (3.4-5.0); Alkaline Phosphatase 97 U/L (45-117); BUN Blood Urea Nitrogen 14 mg/dL (7-18); Bicarbonate 31 mmol/L (21-32); Bilirubin Total 0.5 mg/dL (0.2-1.0); Glucose Level 123 mg/dL (74-106); Potassium 3.8 mmol/L (3.5-5.1); Protein, Total 6.1 g/dL (6.4-8.2); Sodium Level 144 mmol/L (136-145)
[2018-08-03 09:41] LABS: Arterial Blood Carboxyhemoglob 1.6 % (0-1.5); Blood Gas Oxyhemoglobin 92.8 % (94-97); Blood O2 Saturation 94.6 % (92-98.5)
[2018-08-03 09:48] LABS: Urine White Blood Cell Casts OK
[2018-08-03 09:49] LABS: Anisocytosis 1+; Blood Morphology Comment NOTED (NOT SEEN); Platelet Estimate DECR; Teardrop Cell 1+
[2018-08-03 10:26] LABS: MPV 7.2 fL (7.6-11.3)
[2018-08-03 10:43] LABS: Platelet Estimate DECR
--- NOTE | 2018-08-03 11:02 | RAD REPORT ---
EXAM DESCRIPTION: Rufino Single View08/03/2018 10:51 am CLINICAL HISTORY: Shortness of breath COMPARISON: August 02 FINDINGS: Multiple, bilateral large pulmonary nodules unchanged Lines tubes in good position Heart is normal size IMPRESSION: No significant change since the prior exam
[2018-08-03] MEDS: Levofloxacin 750mg IV 750 MG/150 ML BAG IV SCH (11:05)
--- NOTE | 2018-08-03 11:06 | P.PN ---
Subjective Date of Service: 08/03/18 Chief Complaint: Respiratory failure patient on a ventilator Patient seen and examined at bedside with RN. Chart reviewed. Case discussed with pulmonology at this time. Currently intubated. Attempted to be weaned off x2 however unsuccessful at this time. This morning CBC with drop in WBC along the platelet count. Currently patient is not on any anti coagulation. Antibiotics were Dc d yesterday. Patient also had low-grade fever overnight. Also during my exam patient had a fever today. ABGs consistent with hypoxemia. Does appear to be agitated at this time as well. Review of Systems 10-point ROS is otherwise unremarkable Physical Examination - Vital Signs Temperature: 98 F Blood Pressure: 130/62 Pulse: 100 Respirations: 29 Pulse Ox (%): 98 - Physical Exam General: Alert, Moderate distress, Other (Intubated at this time) HEENT: Atraumatic, PERRLA Neck: Supple, JVD distended Respiratory: Normal air movement, Expiratory wheezes, Inspiratory wheezes, Rhonchi/gurgles Cardiovascular: Regular rate/rhythm, Normal S1 S2 Gastrointestinal: Normal bowel sounds, Soft and benign, Non-distended, No tenderness Musculoskeletal: No tenderness Integumentary: No rashes Neurological: Normal tone, Normal reflexes 2+, Normal affect, Abnormal speech Lymphatics: No axilla or inguinal lymphadenopathy - Studies Medications List Reviewed: Yes Assessment And Plan - Current Problems (Diagnosis) (1) Respiratory distress Onset Date: 08/03/18 Current Visit: Yes Status: Acute Plan: Now with respiratory failure most likely secondary to pulmonary mets versus COPD exacerbation. However infection cannot be ruled out -currently intubated. Weaning trial fails this morning -pro calcitonin elevated at this time, white count with significant drop this morning. -today started on IV Levaquin for community-acquired pneumonia. -pulmonology consulted. Recommendation appreciated at this time -continue with steroids and DuoNeb treatments -weaned off of mechanical ventilator as tolerated -will discuss about resuming antibiotics for possible community-acquired pneumonia with decrease in white count increase in pro calcitonin and fever overnight -patient on duo nebs, steroids and intubated at this time -the still is currently also on Tamiflu. High risk with recent exposure. No fluid culture initially was negative however could be false negative given the incubation period. -monitor patient closely in ICU (2) COPD (chronic obstructive pulmonary disease) Onset Date: 02/17/17 Current Visit: No Status: Chronic Plan: COPD exacerbation -DuoNeb, steroids, intubated at this time -pulmonology consulted. Appreciated recommendations -CTA negative for PE -chest without contrast consistent with pulmonary nodule most likely meds from pancreatic cancer Qualifiers: COPD type: COPD with acute exacerbation Qualified Code(s): J44.1 - Chronic obstructive pulmonary disease with (acute) exacerbation (3) Pancreatic cancer metastasized to intra-abdominal lymph node Onset Date: 08/03/18 Current Visit: Yes Status: Acute Plan: Pancreatic cancer with metastasis to lymph nodes. Lungs possible brain at this time as well -currently getting chemotherapy with Oncology here in [place] -will consult oncology for acute illness worsens (4) Depression Onset Date: 02/17/17 Current Visit: No Status: Chronic Qualifiers: Depression Type: unspecified Qualified Code(s): F32.9 - Major depressive disorder, single episode, unspecified (5) GERD (gastroesophageal reflux disease) Onset Date: 02/17/17 Current Visit: No Status: Chronic Qualifiers: Esophagitis presence: esophagitis presence not specified Qualified Code(s) : K21.9 - Gastro-esophageal reflux disease without esophagitis (6) Obesity Onset Date: 02/17/17 Current Visit: No Status: Chronic Qualifiers: Obesity type: unspecified obesity type Obesity classification: adult class 3 (BMI >= 40) Body mass index: BMI 40.0-44.9 (7) Tobacco abuse Onset Date: 02/17/17 Current Visit: No Status: Chronic - Plan Will monitor here in ICU closely. Will wean as tolerated with mechanical ventilator. Will continue with current management acute respiratory failure and COPD exacerbation. Discharge Plan: Other Plan to discharge in: 72 Hours - Code Status/Comfort Care Code Status Assessed: Yes Critical Care: Yes
--- NOTE | 2018-08-03 11:39 | RAD REPORT ---
EXAM DESCRIPTION: Head Brain Wo Cont. CLINICAL HISTORY: AMS COMPARISON: None Available. TECHNIQUE: Multiple helical axial tomographic images were obtained of the head without intravenous c ontrast. This exam was performed according to our departmental dose-optimization program, which inclu josiah automated exposure control, adjustment of the mA and/or kV according to patient size and/or less of iterative reconstruction technique. FINDINGS: There is a 0.7 cm rounded focus of mildly increased density in the right frontal white mat ter (series 201, image 17) without obvious adjacent edema or mass effect. There is no acute intracranial hemorrhage. No midline shift. No ventriculomegaly. Dan-white matter d ifferentiation is maintained. Mild paranasal sinus mucosal thickening is present. Mastoid air cells and middle ear spaces are clear . Orbits and orbital contents are unremarkable. Osseous structures are unremarkable. Surrounding soft tissues are unremarkable. IMPRESSION: 1. Small rounded focus of mildly increased density in the right frontal white matter of uncertain significance, underlying small parenchymal lesion would be hard to exclude. Consider follow -up with contrast enhanced MRI. No evidence of acute intracranial hemorrhage or large territorial type infarct. Electronically signed by: Uri Olea MD 08/02/2018 2:49 AM CORPORATE CLAIMS EXAMINER Due to temporary technical issues with the PACS/Fluency reporting system, reports are being signed by the in house radiologist as a courtesy to ensure prompt reporting. The interpreting radiologist is f ully responsible for the content of the report.
--- NOTE | 2018-08-03 12:02 | RAD REPORT ---
EXAM DESCRIPTION: CT Angiography Chest With Intravenous Contrast. CLINICAL HISTORY: The patient is 48 years old and is Female: PE code COMPARISON: No relevant prior studies available. TECHNIQUE: Axial computed tomographic angiography images of the chest with intravenous contrast usin pulmonary embolism protocol. Sagittal, and coronal reformatted images were created and reviewed. Th is CT exam was performed using one of more of the following does reduction techniques: automated expo sure control, adjustment of the mA and/or kV according to patient size and/or less of iterative recon struction technique. FINDINGS: Pulmonary arteries: There are no obvious filling defects identified within the pulmonary a rteries to suggest pulmonary embolism. Aorta: No acute findings. No thoracic aortic aneurysm. Lungs: Innumerable large pulmonary masses are scattered throughout the lungs. The largest within the right lung measures 8.7 x 5.7 cm on axial image 56. The largest in the left lung measures 6.7 x 6.7 c m on axial image 22. Subtle groundglass opacity within the right middle lobe is present. Pleural space: Unremarkable. No significant pericardial effusion. No evidence of RV dysfunction. Bones/Joints: Mild degenerative change of the spine is present. No acute fracture. No dislocation. Soft tissues: Unremarkable. Lymph nodes: Several enlarged left hilar lymph nodes are present, the largest of which measures 3.1 c m. Liver: The liver is enlarged. Retroperitoneal space: There is a heterogeneous soft tissue mass partially visualized within the retr operitoneum on the left measuring 4.0 x 3.6 cm. Tubes, lines and devices: Endotracheal tube is present with the tip superior to the ivan. A right chest port is present with the tip in the SVC. IMPRESSION: 1. No evidence of pulmonary embolism. 2. Innumerable pulmonary masses throughout the lungs consistent with the patient's history of metasta tic disease. 3. Partial visualization of a heterogeneous soft tissue mass within the left periaortic region. Electronically signed by: Beata Fletcher MD 08/02/2018 2:38 AM MANAGER BAR Due to temporary technical issues with the PACS/Fluency reporting system, reports are being signed by the in house radiologist as a courtesy to ensure prompt reporting. The interpreting radiologist is f ully responsible for the content of the report.
[2018-08-03 13:18] LABS: Absolute Lymphocytes (CBC) 0.3 K/uL (0.7-4.9); Absolute Monocytes 0.1 K/uL (0.1-1.3); Absolute Neutrophil 2.9 K/uL (1.8-8.0); Basophils % 0.1 % (0-1.3); Hematocrit 27.9 % (36.0-45.0); Lymphocytes % 9.7 % (15.3-44.8); MPV 7.6 fL (7.6-11.3); Monocytes % 2.5 % (3.3-12.3); RBC Red Blood Cell Count 3.11 M/uL (3.86-4.86)
--- NOTE | 2018-08-03 13:48 | RAD REPORT ---
EXAM DESCRIPTION: XR Chest, 1 view CLINICAL HISTORY: The patient is 48 years old and is Female; Code 99 COMPARISON: No relevant prior studies available. TECHNIQUE: Frontal view of the chest. FINDINGS: Lungs: Innumerable large metastatic masses are present throughout both lungs. These appear overall stable. Pleural space: Unremarkable. No pneumothorax. Heart: Unremarkable. No cardiomegaly. Mediastinum: Unremarkable. Bones/joints: Unremarkable. Tubes, lines and devices: An endotracheal tube is present with the tip between thoracic inlet and car gabrielle. A right chest port is present with the tip in the SVC. IMPRESSION: Interval intubation with endotracheal tube in appropriate position. Otherwise, stable ch est. Electronically signed by: Beata Fletcher MD 08/02/2018 1:20 AM TECHNICAL OPERATIONS SPECIALIST Due to temporary technical issues with the PACS/Fluency reporting system, reports are being signed by the in house radiologist as a courtesy to ensure prompt reporting. The interpreting radiologist is f ully responsible for the content of the report.
[2018-08-03] MEDS: PROPOFOL 1,000 MG/100 ML VIAL IV PRN ×2 (14:30→20:13)
[2018-08-04] MEDS: MORPHINE *EXTENDED RELEASE* 15 MG TAB PO SCH ×3 (01:00→17:45)
[2018-08-04] MEDS: METHYLPREDNISOLONE 40 MG INJ IV SCH ×2 (01:21→09:43)
[2018-08-04] MEDS: NA CHLORIDE 0.9% 1,000 ML IV SCH ×2 (01:35→11:35)
[2018-08-04] MEDS: PROPOFOL 1,000 MG/100 ML VIAL IV PRN ×2 (01:52→07:47)
[2018-08-04] MEDS: IPRATROPIUM BROM 0.5MG/2.5ML NEB SCH ×2 (02:00→07:34)
[2018-08-04] MEDS: LEVALBUTEROL 1.25 MG/3 ML NEB NEB SCH ×4 (02:00→20:15)
[2018-08-04] MEDS: LORazepam 2 MG/ML VIAL IV PRN (03:07)
[2018-08-04] MEDS: FENTANYL CITR 100 MCG/2 ML IV PRN ×4 (04:48→19:40)
[2018-08-04 05:38] LABS: Absolute Lymphocytes (CBC) 0.3 K/uL (0.7-4.9); Absolute Monocytes 0.1 K/uL (0.1-1.3); Absolute Neutrophil 2.5 K/uL (1.8-8.0); Basophils % 0.2 % (0-1.3); Hematocrit 26.4 % (36.0-45.0); Lymphocytes % 10.6 % (15.3-44.8); MPV 7.7 fL (7.6-11.3); Monocytes % 2.6 % (3.3-12.3); RBC Red Blood Cell Count 2.95 M/uL (3.86-4.86)
[2018-08-04 05:59] LABS: BUN Blood Urea Nitrogen 12 mg/dL (7-18); Bicarbonate 31 mmol/L (21-32); Glucose Level 122 mg/dL (74-106); Magnesium 1.9 mg/dL (1.8-2.4); Potassium 3.5 mmol/L (3.5-5.1); Sodium Level 144 mmol/L (136-145)
[2018-08-04] MEDS ORDERED: POTASSIUM CL SA 10 MEQ TAB PO ONE (07:01)
[2018-08-04] MEDS: Pantoprazole (granules) 40 MG/BLIST PACKET FT SCH (07:30)
[2018-08-04] MEDS ORDERED: ENOXAPARIN 40 MG/0.4 ML SQ SCH (09:00)
[2018-08-04] MEDS: SERTRALINE HCL 100 MG TAB PO SCH (09:43)
[2018-08-04] MEDS: OSELTAMIVIR 75 MG CAP PO SCH (09:43)
[2018-08-04] MEDS: Levofloxacin 750mg IV 750 MG/150 ML BAG IV SCH (09:44)
[2018-08-04 11:03] LABS: Anisocytosis 1+; Blood Morphology Comment NOTED (NOT SEEN); Platelet Estimate DECR
--- NOTE | 2018-08-04 11:58 | P.PN ---
Subjective Date of Service: 08/04/18 Chief Complaint: Failure to wean from the ventilator Subjective: Improving (Patient is improving hemodynamically stable unable to wean from the ventilator she becomes very anxious) Review of Systems is unable to be obtained Physical Examination - Vital Signs Temperature: 97.5 F Blood Pressure: 133/72 Pulse: 66 Respirations: 22 Pulse Ox (%): 96 - Physical Exam General: Alert, Cooperative Respiratory: Expiratory wheezes Cardiovascular: No edema, Regular rate/rhythm - Studies Medications List Reviewed: Yes Assessment & Plan - Problems (Diagnosis) (1) Respiratory failure Current Visit: Yes Status: Acute Plan: Patient admitted with respiratory failure 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
[2018-08-04] MEDS: ONDANSETRON 4 MG/2 ML VIAL IV PRN ×2 (12:46→18:09)
[2018-08-04] MEDS: PANTOPRAZOLE 40MG TABLET PO SCH (13:35)
[2018-08-04] MEDS: ALPRAZOLAM 0.5 MG TABLET PO PRN (14:37)
[2018-08-04] MEDS ORDERED: DICYCLOMINE HCL 10 MG CAP PO ONE (15:00)
[2018-08-04] MEDS ORDERED: HYDROMORPHONE HCL 0.5 MG/0.5 ML INJ IV ONE (16:00)
--- NOTE | 2018-08-04 18:09 | ECHO ---
HEIGHT: 5 ft 4 in WEIGHT: 202 lb 6.4 oz DATE OF STUDY: 08/04/[address]: Kd Rea MD 2-DIMENSIONAL: YES M.MODE: YES DOPPLER: YES COLOR FLOW: YES TDS: PORTABLE: DEFINITY: BUBBLE STUDY: DIAGNOSIS: RESPIRATORY FAILURE. CARDIAC HISTORY: CATHERIZATION: NO SURGERY: NO PROSTHETIC VALVE: NO PACEMAKER: NO MEASUREMENTS (cm) DIASTOLIC (NORMALS) SYSTOLIC (NORMALS) IVSd 1.0 (0.6-1.2) LA Diam 3.9 (1.9-4.0) LVEF 61% LVIDd 4.4 (3.5-5.7) LVIDs 3.0 (2.0-3.5) %FS 32% LVPWd 1.0 (0.6-1.2) Ao Diam 2.5 (2.0-3.7) 2 DIMENSIONAL ASSESSMENT: RIGHT ATRIUM: NORMAL LEFT ATRIUM: NORMAL RIGHT VENTRICLE: NORMAL LEFT VENTRICLE: NORMAL TRICUSPID VALVE: NORMAL MITRAL VALVE: NORMAL PULMONIC VALVE: NORMAL AORTIC VALVE: NORMAL PERICARDIAL EFFUSION: NONE AORTIC ROOT: NORMAL LEFT VENTRICULAR WALL MOTION: NORMAL DOPPLER/COLOR FLOW: MILD MITRAL REGURGITATION AND TRICUSPID REGURGITATION. NORMAL RIGHT VENTRICULAR SYSTOLIC PRESSURE. COMMENTS: NORMAL TWO DIMENSIONAL ECHOCARDIOGRAM. MILD MITRAL REGURGITATION AND TRICUSPID REGURGITATION. TECHNOLOGIST: SHA WELLINGTON
--- NOTE | 2018-08-04 19:29 | PN ---
Date of Progress Note: 08/04/2018 Subjective: The patient is seen and examined. Chart reviewed and case discussed with RN. Christine Rea concerning ventilation management, he recommends extubation today. The patient is lacey y anxious, not tolerating weaning trials. The patient is awake and alert, answers appropriately to y es and no questions. Medications: List reviewed. Physical Examination: Vital Signs: Temperature 97.5, heart rate 89, blood pressure 142/70, respirations 18, and O2 95% on a mechanical ventilation, 40% FiO2. General: Awake, alert, oriented, some mild respiratory distress, ill-appearing female. CV: S1 and S2. Regular rate and rhythm. Peripheral pulses present. Respiratory: Diminished breath sounds. Wheezing heard throughout. No use of accessory muscles. Gastrointestinal: Abdomen is soft, nontender, and nondistended. Positive bowel sounds. Extremities: No clubbing, cyanosis, or edema. Neurologic: Cranial nerves 2 through 12 intact grossly. No focal neurological deficit. The patient is intubated and able to follow commands. Skin: No rashes. Normal skin turgor. Laboratory Data: Sodium 144, potassium 3.5, chloride 108, CO2 of 31, BUN 12, creatinine 0.33, glucos e 122, calcium 8.2, phosphorus 3, and magnesium 1.9. WBC 2.9, H and H of 8.6 and 26.4, platelets 46, neutrophils 86.6%. Blood cultures, no growth to date. Assessment And Plan: A 48-year-old female with, 1.Acute respiratory failure, on mechanical ventilation, likely due to pulmonary metastases versus ch ronic obstructive pulmonary disease exacerbation, has not been able to be weaned off. Pulmonology re commends extubation with subsequent BiPAP placement. No signs of sepsis. All antibiotics have been discontinued. We will continue with supportive care. 2.Acute chronic obstructive pulmonary disease exacerbation. We will continue with steroids and DuoN eb. Continue supplemental oxygen. Appreciate pulmonology input. CT angio is negative for pulmonary embolism. The patient does have some pulmonary nodules that are consistent with metastatic disease from pancreatic cancer. 3.Pancreatic cancer metastasized to intraabdominal lymph node and possibly lungs and brain at this t brent, the patient is currently ongoing with chemotherapy as an outpatient. Oncology has been consulte d. 4.Acute thrombocytopenia, not on any anticoagulation. No signs of bleeding. We will continue to mo nitor pending hematology eval. 5.Gastroesophageal reflux disease without esophagitis. 6.Major depressive disorder, single episode. 7.Obesity, BMI of 34.7. 8.Nicotine dependence with cigarette smoking, continuous. PLAN: Extubation planned for today and we will continue to monitor in ICU setting. The patient will likely require BiPAP after being extubated. Follow up with hematology recommendations. Overall, kirk meeksded prognosis. SA/MODL Voice ID: [id number] Report ID: [id number]
[2018-08-04] MEDS ORDERED: IPRATROPIUM BROM 0.5MG/2.5ML ONE (20:17)
[2018-08-05] MEDS: MORPHINE *EXTENDED RELEASE* 15 MG TAB PO SCH ×3 (00:34→17:11)
[2018-08-05] MEDS: ONDANSETRON 4 MG/2 ML VIAL IV PRN ×2 (00:40→17:34)
[2018-08-05] MEDS: LEVALBUTEROL 1.25 MG/3 ML NEB NEB SCH ×4 (02:12→20:40)
[2018-08-05] MEDS: ALPRAZOLAM 0.5 MG TABLET PO PRN (04:17)
[2018-08-05 05:22] LABS: Absolute Lymphocytes (CBC) 0.9 K/uL (0.7-4.9); Absolute Monocytes 0.2 K/uL (0.1-1.3); Absolute Neutrophil 4.5 K/uL (1.8-8.0); Basophils % 0.2 % (0-1.3); Lymphocytes % 16.8 % (15.3-44.8); MPV 7.5 fL (7.6-11.3); Monocytes % 4.2 % (3.3-12.3)
[2018-08-05 05:39] LABS: ALT/SGPT 19 U/L (12-78); AST/SGOT 24 U/L (15-37); Albumin 2.1 g/dL (3.4-5.0); Alkaline Phosphatase 75 U/L (45-117); BUN Blood Urea Nitrogen 11 mg/dL (7-18); Bicarbonate 32 mmol/L (21-32); Bilirubin Total 0.4 mg/dL (0.2-1.0); Glucose Level 90 mg/dL (74-106); Potassium 3.3 mmol/L (3.5-5.1); Protein, Total 6.1 g/dL (6.4-8.2); Sodium Level 143 mmol/L (136-145)
[2018-08-05] MEDS ORDERED: POTASSIUM CL SA 10 MEQ TAB PO ONE (05:58)
[2018-08-05] MEDS: PANTOPRAZOLE 40MG TABLET PO SCH (06:32)
[2018-08-05 06:48] LABS: Blood Morphology Comment NOT SEEN (NOT SEEN); Platelet Estimate DECR; Urine White Blood Cell Casts OK
[2018-08-05] MEDS: SERTRALINE HCL 100 MG TAB PO SCH (08:36)
[2018-08-05 10:17] LABS: Protime INR 1.3
--- NOTE | 2018-08-05 15:11 | PN ---
Date of Progress Note: 08/05/2018 Subjective: The patient is seen and examined. Chart reviewed and case discussed with RN and Dr. Vivek noe. The patient was successfully extubated yesterday. Still has NG tube in place. Currently on Ventimask. The patient does report some anxiety, mainly concerned with burning abdominal pain. Medications: List reviewed. Physical Examination: Vital Signs: Temperature 97.8, heart rate 89, blood pressure 112/47, respirations 22, and O2 of 92% on 3 L via nasal cannula. General: Awake, alert, and oriented x3, ill-appearing female, obese. CV: S1 and S2. Regular rate and rhythm. Peripheral pulses present. Respiratory: Diminished breath sounds. Rhonchi heard. The patient is tachypneic. Use of accessory muscles present. Gastrointestinal: Abdomen is soft, nontender, and nondistended. Positive bowel sounds. Extremities: No clubbing, cyanosis, or edema. No calf tenderness. Neurologic: Cranial nerves 2 through 12 intact grossly. No focal neurological deficit. Speech is n ormal. Skin: No rashes. Normal skin turgor. Laboratory Data: Sodium 143, potassium 3.3, chloride 107, CO2 of 32, BUN 11, creatinine 0.4, glucose 90, and calcium 8.3. Albumin 2.1. WBC 5.7, H and H of 9.1 and 28, and platelets 32, and neutrophil s 78%. Blood cultures, no growth to date. Sputum culture produced quantity of respiratory shalini. P eripheral blood smear shows leukopenia, normocytic normochromic anemia and thrombocytopenia. Echocar diogram shows EF of 61%. Assessment And Plan: A 48-year-old female with, 1.Acute respiratory failure with hypoxia, now extubated, currently requiring oxygen via Ventimask, w e will wean off as tolerated, secondary to pulmonary metastases versus chronic obstructive pulmonary disease exacerbation. The patient was difficult to wean off. I appreciate Dr. Rea's input. 2.Acute chronic obstructive pulmonary disease exacerbation. Continue DuoNeb nebulizer treatments an d steroids. Continue supplemental oxygen. 3.Pancreatic cancer metastasized to intraabdominal lymph nodes and possibly lungs and brain. The arnold donohue does see Oncology as an outpatient and is on chemotherapy. I appreciate Oncology's input. 4.Acute thrombocytopenia. No acute signs of bleeding. The patient's platelets have dropped, likely secondary to her metastatic disease as well as her acute illness. We will transfuse if the patient is actively bleeding or if less than 10. Oncology on board. I appreciate their recommendations. 5.Gastroesophageal reflux disease. The patient complained of significant burning, we will increase PPI to b.i.d., adjust pain medications as well. We will discontinue fentanyl and switch to Dilaudid. 6.Major depressive disorder, single episode. 7.Obesity, BMI 34.7. 8.Nicotine dependence with cigarette smoking, continuous. 9.Severe protein-calorie malnutrition, albumin is 2.1. The patient is tolerating full liquids. We will likely discontinue NG tube and start on diet. PLAN: Continue monitoring in ICU setting until weaned off Ventimask. We will likely step-down in a. m. Overall poor prognosis. /HOLLIE Voice ID: [id number] Report ID: [id number]
--- NOTE | 2018-08-05 16:41 | P.PN ---
Date of Service: 08/05/18 (Oncology) Patient known to me from clinic for metastatic ampullary carcinoma. She has multiple lung lesions which has recently progressed significantly on first line FOLFOX. She was changed to second line chemo with gemcitabine based regimen since 07/28/18. She is currently in ICU for acute respiratory failure secondary to LRTI/ pneumonia s/p extubation now. She is still in moderate respiratory distress but feels much better than before. She has been treated with multiple antibiotics including levofloxacin and tamiflu. Not on any anticoagulation. Exam: Vitals stable: Gen: appears to be in moderate acute distress; verbal and able to complete sentences, on nasal cannula 2L o2 Skin, Hair & Nails: normal texture, normal turgor and color. No open wounds. Head: normocephalic, atraumatic. Eyes: anicteric, no injection of conjunctivae. Ears: hearing grossly intact. Nose: nares patent. Throat: no erythema, no exudate. Neck: neck supple, without lymphadenopathy. Respiratory: poor respiratory effort, decreased BS bases, no wheezing. Cardiovascular: regular rate and rhythm, no murmurs, no cyanosis. Abdomen: bowel sounds present and equal in all four quadrants, abdomen is soft, nondistended, no masses Peripheral Vascular: no pedal edema. Neurological: AAOx3, moving all extremities. Labs reviewed. Problems: 1. Pancytopenia: likely secondary to recent chemotherapy. WBC and Hb recuperating. Thrombocytopenia is multifactorial- sepsis/ infections, antibiotics, stress and recent chemotherapy just a week ago. Counts were at [facility] and expected to recuperate. Smear is unremarkable and reflects the cbc. No schistocytes. She does not appear to be in DIC and low probability of INDIRA at this time. Continue to monitor with daily cbc. Also check PT PTT INR as well. Transfuse single donor platelets if plt count less than 15,000 or if evidence of bleeding when plt counts less than 50,000. 2. 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 Her disease has showed evidence of progression on recent scans and currently she is on second line chemo with gemcitabine and cisplatin. Overall poor prognosis and she is aware of this and will consider best supportive care should her condition deteriorate or if she does not tolerate or respond to chemotherapy. I had a detailed discussion with patient and her daughter today. We will continue to follow her progress while she is in [facility]. D/w Dr Almaraz and house staff
[2018-08-05] MEDS: HYDROMORPHONE HCL 0.5 MG/0.5 ML INJ IV PRN (20:27)
[2018-08-05] MEDS ORDERED: PANTOPRAZOLE 40MG TABLET PO SCH (21:00)
[2018-08-06] MEDS: MORPHINE *EXTENDED RELEASE* 15 MG TAB PO SCH ×3 (00:25→18:12)
[2018-08-06] MEDS: HYDROMORPHONE HCL 0.5 MG/0.5 ML INJ IV PRN ×4 (01:37→20:45)
[2018-08-06] MEDS: LEVALBUTEROL 1.25 MG/3 ML NEB NEB SCH ×4 (02:50→19:46)
[2018-08-06 05:19] LABS: Absolute Lymphocytes (CBC) 1.1 K/uL (0.7-4.9); Absolute Monocytes 0.3 K/uL (0.1-1.3); Basophils % 0.3 % (0-1.3); Eosinophils % 0.1 % (0-4.4); Lymphocytes % 20.4 % (15.3-44.8); MPV 7.7 fL (7.6-11.3); Monocytes % 6.1 % (3.3-12.3); RBC Red Blood Cell Count 3.18 M/uL (3.86-4.86)
[2018-08-06 05:40] LABS: ALT/SGPT 18 U/L (12-78); AST/SGOT 26 U/L (15-37); Alkaline Phosphatase 86 U/L (45-117); BUN Blood Urea Nitrogen 9 mg/dL (7-18); Bicarbonate 35 mmol/L (21-32); Bilirubin Total 0.9 mg/dL (0.2-1.0); Glucose Level 122 mg/dL (74-106); Potassium 3.8 mmol/L (3.5-5.1); Sodium Level 140 mmol/L (136-145)
[2018-08-06] MEDS ORDERED: POTASSIUM CL SA 10 MEQ TAB PO ONE (05:55)
--- NOTE | 2018-08-06 08:21 | P.PN ---
Subjective Date of Service: 08/06/18 Chief Complaint: Shortness of breath Patient is doing well she is alert responsive cooperative fall requiring significant concentrations of oxygen former heavy smoker Review of Systems General: Weakness Respiratory: Shortness of Breath Physical Examination - Vital Signs Temperature: 97 F Blood Pressure: 127/63 Pulse: 86 Respirations: 17 Pulse Ox (%): 93 - Physical Exam General: Alert, In no apparent distress, Oriented x3 HEENT: Atraumatic Neck: Supple Respiratory: Clear to auscultation bilaterally Cardiovascular: No edema, Regular rate/rhythm - Studies Microbiology Data (last 24 hrs): 08/01/18 07:40 Blood - Blood Aerobic Blood Culture - Final No growth in 5 days. 08/01/18 07:40 Blood - Blood Anaerobic Blood Culture - Final No growth in 5 days. Medications List Reviewed: Yes Assessment & Plan - Problems (Diagnosis) (1) Respiratory failure Current Visit: Yes Status: Acute Plan: Patient still continues to be hypoxic former heavy smoker I have added ipratropium and brought Wanna in addition to prednisone provided with maximum bronchodilators titrate sat to 90% possible transfer to the floor echocardiogram normal in transfer to the floor Qualifiers: Chronicity: acute on chronic Respiratory failure complication: hypoxia and hypercapnia Qualified Code(s): J96.21 - Acute and chronic respiratory failure with hypoxia; J96.22 - Acute and chronic respiratory failure with hypercapnia
[2018-08-06] MEDS: SERTRALINE HCL 100 MG TAB PO SCH (08:23)
[2018-08-06] MEDS: PANTOPRAZOLE 40MG TABLET PO SCH (08:24)
[2018-08-06] MEDS: predniSONE 20 MG TAB PO SCH ×2 (08:44→20:45)
[2018-08-06] MEDS: ARFORMOTEROL TARTRATE 15 MCG/2 ML VIAL.NEB NEB SCH ×2 (09:01→19:46)
--- NOTE | 2018-08-06 09:33 | RAD REPORT ---
EXAM DESCRIPTION: RAD - Chest Single View - 08/06/2018 9:09 am CLINICAL HISTORY: Shortness of breath COMPARISON: August 03 chest film, August 02 CT chest TECHNIQUE: AP portable chest image was obtained 0905 hours . FINDINGS: Multiple large pulmonary masses are again noted. No progression in pulmonary edema or infi ltrate seen in the aerated portions of the lung mckeon. Trachea is midline. Port-A-Cath remains on th e right. Heart and vasculature are normal. No measurable pleural effusion and no pneumothorax. No acute bony abnormality seen. No acute aortic findings suspected. IMPRESSION: Chest is not substantially different from the August 03 study. Significant pulmonary edema or infiltrate not suspected. The multiple large masses do obscure much of the lung parenchyma. If there are ongoing concerns for s uperimposed pneumonia or edema, CT chest imaging could be repeated.
[2018-08-06 12:03] LABS: Arterial Blood Carboxyhemoglob 1.9 % (0-1.5); Blood Gas Oxyhemoglobin 83.8 % (94-97); Blood O2 Saturation 85.8 % (92-98.5)
[2018-08-06 13:20] LABS: RBC Red Blood Cell Count 3.28 M/uL (3.86-4.86)
[2018-08-06 13:22] LABS: Protime INR 1.49
[2018-08-06] MEDS: IPRATROPIUM BROM 0.5MG/2.5ML NEB SCH ×2 (13:27→19:46)
--- NOTE | 2018-08-06 17:25 | PN ---
Date of Progress Note: 08/06/2018 Subjective: The patient is seen and examined. Chart reviewed and case discussed with RN and Dr. Vivek noe. The patient continues to be hypoxic requiring the ventimask, not able to tolerate being on th e nasal cannula, also having some cough. Medications: List reviewed. Physical Examination: Vital Signs: Temperature 97, heart rate 84, blood pressure 114/60, respirations 12, and O2 of 95% on 15 L of Venturi mask 50% FiO2. General: Awake, alert, and oriented x3. Mild respiratory distress, ill appearing, obese female. CV: S1 and S2. Peripheral pulses present. Regular rate and rhythm. Respiratory: Diminished breath sounds. Diffuse rhonchi. Gastrointestinal: Abdomen is soft, nontender, and nondistended. Positive bowel sounds. Extremities: No clubbing, cyanosis, or edema. Neurologic: Nonfocal. Skin: No rashes. Normal skin turgor. Laboratory Data: Sodium 140, potassium 3.8, chloride 102, CO2 of 35, BUN 9, creatinine 0.41, glucose 122, calcium 8, AST 26, ALT 18. WBC 5.5, H and H of 9.4 and 29, platelets 21, neutrophils 73%. Blo od cultures, no growth final. Stool culture, no Salmonella, Shigella, or Campylobacter. Chest x-ray personally reviewed, shows not substantially different from August 03 study, significant pulmonar y edema or infiltrate not suspected. Multiple large masses do obscure much of the lung parenchyma. If there are ongoing concerns for superimposed pneumonia or edema, CT chest would be recommended or r epeated. Assessment And Plan: A 48-year-old female with, 1.Acute respiratory failure with hypoxia, still requiring ventimask, able to be extubated, secondary to pulmonary metastases and chronic obstructive pulmonary disease exacerbation. Dr. Rea has ma ximized her bronchodilator therapy. We will continue to wean off as tolerated. 2.Acute chronic obstructive pulmonary disease exacerbation. Inhalers adjusted. Continue steroids. Wean off ventimask as tolerated. 3.Pancreatic cancer with metastases to intraabdominal lymph nodes as well as lung and brain. The arnold donohue has seen Oncology. I appreciate Dr. Velázquez's input. The patient has failed outpatient chemother apy on the first-line agent, currently on second-line agent. Overall, poor prognosis. She has a rar e cancer. 4.Acute thrombocytopenia. No signs of bleeding. Platelets continue to drop. We will transfuse if less than 15 or any bleeding appears. We will continue to monitor at this time, is secondary to her acute illness, as well as her cancer and side effect of her treatment with chemo. 5.Gastroesophageal reflux disease. Continue PPI b.i.d. 6.Major depressive disorder, single episode. 7.Obesity, BMI of 34.7. 8.Severe protein-calorie malnutrition. Continue with protein supplementation. 9.Nicotine dependence with cigarette smoking, continuous. PLAN: Continue monitoring in the ICU setting. We will step down once off ventiteresask. /HOLLIE Voice ID: [id number] Report ID: [id number]
[2018-08-06] MEDS: ONDANSETRON 4 MG/2 ML VIAL IV PRN (18:17)
[2018-08-06] MEDS: ALPRAZOLAM 0.5 MG TABLET PO PRN (20:45)
[2018-08-07] MEDS: ONDANSETRON 4 MG/2 ML VIAL IV PRN ×2 (00:25→05:34)
[2018-08-07] MEDS: MORPHINE *EXTENDED RELEASE* 15 MG TAB PO SCH ×4 (00:25→20:51)
[2018-08-07] MEDS: IPRATROPIUM BROM 0.5MG/2.5ML NEB SCH ×4 (01:32→19:28)
[2018-08-07] MEDS: LEVALBUTEROL 1.25 MG/3 ML NEB NEB SCH ×4 (01:32→19:28)
[2018-08-07] MEDS: HYDROMORPHONE HCL 0.5 MG/0.5 ML INJ IV PRN ×5 (01:37→23:26)
[2018-08-07] MEDS: PANTOPRAZOLE 40MG TABLET PO SCH (05:35)
[2018-08-07 06:04] LABS: Absolute Lymphocytes (CBC) 0.7 K/uL (0.7-4.9); Absolute Monocytes 0.2 K/uL (0.1-1.3); Absolute Neutrophil 4.1 K/uL (1.8-8.0); Eosinophils % 0.1 % (0-4.4); Hematocrit 28.3 % (36.0-45.0); Lymphocytes % 13.5 % (15.3-44.8); MPV 8.9 fL (7.6-11.3); Monocytes % 4.2 % (3.3-12.3); RBC Red Blood Cell Count 3.12 M/uL (3.86-4.86)
[2018-08-07 06:20] LABS: ALT/SGPT 17 U/L (12-78); AST/SGOT 21 U/L (15-37); Albumin 2.1 g/dL (3.4-5.0); Alkaline Phosphatase 115 U/L (45-117); BUN Blood Urea Nitrogen 7 mg/dL (7-18); Bicarbonate 38 mmol/L (21-32); Bilirubin Total 0.6 mg/dL (0.2-1.0); Glucose Level 137 mg/dL (74-106); Potassium 4.3 mmol/L (3.5-5.1); Protein, Total 6.3 g/dL (6.4-8.2); Sodium Level 142 mmol/L (136-145)
[2018-08-07 06:23] LABS: Protime INR 1.51
[2018-08-07 07:38] LABS: Blood Morphology Comment NOT SEEN (NOT SEEN); Platelet Estimate DECR; Urine White Blood Cell Casts OK
[2018-08-07] MEDS: ARFORMOTEROL TARTRATE 15 MCG/2 ML VIAL.NEB NEB SCH ×2 (08:15→19:27)
[2018-08-07] MEDS: SERTRALINE HCL 100 MG TAB PO SCH (08:38)
[2018-08-07] MEDS: ALPRAZOLAM 0.5 MG TABLET PO PRN ×2 (08:39→20:55)
[2018-08-07] MEDS: predniSONE 20 MG TAB PO SCH ×2 (08:39→20:52)
--- NOTE | 2018-08-07 17:39 | PN ---
Date of Progress Note: 08/07/2018 Subjective: The patient was seen and examined. Chart reviewed and case discussed with RN. The [place] ent is doing significantly better, now off Venturi mask and BiPAP. Doing well on nasal cannula. Medications: List reviewed. Physical Examination: Vital Signs: Temperature 97.7, heart rate 91, blood pressure 115/57, respirations 15, O2 89% on 4 L via nasal cannula. General: Awake, alert, oriented x3, ill-appearing female, obese, BMI 34.9. CVS: S1, S2. Regular rate and rhythm. Peripheral pulses present. Respiratory: Diminished breath sounds. Rhonchi heard. Gastrointestinal: Abdomen is soft, nontender, nondistended. Positive bowel sounds. Extremities: No clubbing, cyanosis. Pedal edema. Neuro: Nonfocal. Laboratory Data: Sodium 142, potassium 4.3, chloride 100, CO2 of 38, BUN 7, creatinine 0.41, glucose 137, calcium 8.5, albumin 2.1. WBC 5, H and H 9.1 and 28.3, platelets 21, neutrophils 82%. Blood c ultures, no growth. Final sputum cultures, no growth. Assessment And Plan: A 48-year-old female with: 1.Acute respiratory failure with hypoxia and hypercapnia, now off BiPAP, doing well on 4 L via nasal cannula, secondary to pulmonary metastases and chronic obstructive pulmonary disease exacerbation. The patient responded well to maximize bronchodilator therapy and steroids. Appreciate Pulmonology i nput. 2.Acute chronic obstructive pulmonary disease exacerbation. Inhalers adjusted. Continue on steroid s and wean off oxygen as tolerated. 3.Pancreatic cancer with metastases to intraabdominal lymph nodes, lungs, and brain. The patient se en by Oncology. Has failed chemotherapy with first-line agent and currently on second-line agent wit h side effects of thrombocytopenia. Overall, very poor prognosis. 4.Acute thrombocytopenia. No bleeding. Platelets at 21. Transfuse of less than 15 or if there is any active bleeding. We will continue to monitor. No signs of hemolysis at this time. 5.Gastroesophageal reflux disease. Continue PPI b.i.d. Improved. 6.Major depressive disorder, single episode. 7.Generalized anxiety disorder, on benzodiazepines. 8.Obesity, BMI 34.7. 9.Severe protein-calorie malnutrition. Albumin is 2.1. We will continue supplements. 10.Nicotine dependence with cigarette smoking, continuous. 11.Gastrointestinal and deep venous thrombosis prophylaxis addressed. Plan: Step down from ICU. Continue to wean off oxygen. Discharge in the next 24-48 hours if contin ues to improve. SA/MODL Voice ID: [id number] Report ID: [id number]
[2018-08-08] MEDS: LEVALBUTEROL 1.25 MG/3 ML NEB NEB SCH ×2 (01:17→07:43)
[2018-08-08] MEDS: IPRATROPIUM BROM 0.5MG/2.5ML NEB SCH ×4 (01:17→19:33)
[2018-08-08] MEDS: MORPHINE *EXTENDED RELEASE* 15 MG TAB PO SCH ×4 (03:25→20:40)
[2018-08-08] MEDS: HYDROMORPHONE HCL 0.5 MG/0.5 ML INJ IV PRN ×5 (05:15→22:35)
[2018-08-08] MEDS: PANTOPRAZOLE 40MG TABLET PO SCH (05:25)
[2018-08-08 07:10] LABS: Absolute Lymphocytes (CBC) 0.5 K/uL (0.7-4.9); Absolute Monocytes 0.2 K/uL (0.1-1.3); Basophils % 0.1 % (0-1.3); Eosinophils % 0.4 % (0-4.4); Hematocrit 28.8 % (36.0-45.0); Lymphocytes % 7.4 % (15.3-44.8); MPV 9.1 fL (7.6-11.3); Monocytes % 2.9 % (3.3-12.3); RBC Red Blood Cell Count 3.18 M/uL (3.86-4.86)
[2018-08-08 07:18] LABS: ALT/SGPT 17 U/L (12-78); AST/SGOT 24 U/L (15-37); Albumin 2.2 g/dL (3.4-5.0); Alkaline Phosphatase 114 U/L (45-117); BUN Blood Urea Nitrogen 8 mg/dL (7-18); Bicarbonate 32 mmol/L (21-32); Bilirubin Total 0.4 mg/dL (0.2-1.0); Glucose Level 142 mg/dL (74-106); Potassium 4.8 mmol/L (3.5-5.1); Protein, Total 6.9 g/dL (6.4-8.2); Sodium Level 140 mmol/L (136-145)
[2018-08-08] MEDS: ARFORMOTEROL TARTRATE 15 MCG/2 ML VIAL.NEB NEB SCH (07:43)
[2018-08-08] MEDS: predniSONE 20 MG TAB PO SCH (08:42)
[2018-08-08] MEDS: SERTRALINE HCL 100 MG TAB PO SCH (08:42)
--- NOTE | 2018-08-08 10:45 | P.PN ---
Subjective Date of Service: 08/08/18 Chief Complaint: COPD exacerbation Patient is doing much better now she is ambulating feels a lot better bronchodilators have helped using BiPAP at night Review of Systems General: Weakness Respiratory: Cough, Shortness of Breath Physical Examination - Vital Signs Temperature: 97.0 F Blood Pressure: 110/60 Pulse: 77 Respirations: 16 Pulse Ox (%): 95 - Physical Exam General: Alert, In no apparent distress, Oriented x3 Respiratory: Diminished, Expiratory wheezes Cardiovascular: No edema, Normal pulses - Studies Medications List Reviewed: Yes Assessment & Plan - Problems (Diagnosis) (1) COPD exacerbation Current Visit: Yes Status: Acute Plan: Patient is 48 years of age admitted with presumed COPD exacerbation doing much better will check room air arterial blood gases you see if she will qualify for noninvasive ventilator she was suddenly hypercapnic in the ICU medications changed at an inhaler possible discharge on low-dose prednisone 10 twice a day for at least 10 days bronchodilator check room air pulse ox (2) Respiratory failure Current Visit: Yes Status: Acute Plan: Patient has chronic stable respiratory failure may qualify for noninvasive ventilation depending up on her arterial blood gases Qualifiers: Chronicity: chronic Respiratory failure complication: hypercapnia Qualified Code(s): J96.12 - Chronic respiratory failure with hypercapnia
[2018-08-08 11:51] LABS: Arterial Blood Carboxyhemoglob 1.8 % (0-1.5); Blood Gas Oxyhemoglobin 82.3 % (94-97); Blood O2 Saturation 84.2 % (92-98.5)
--- NOTE | 2018-08-08 17:48 | PN ---
Date of Progress Note: 08/08/2018 Subjective: The patient was seen and examined. Chart reviewed and case discussed with RN and Dr. Michael braun. The patient is doing better. Still requiring supplemental oxygen, was on BiPAP all night, c urrently off it to eat. The patient states her pain is controlled after medications were adjusted. Medications: List reviewed. Physical Examination: Vital Signs: Temperature 97, heart rate 77, blood pressure 110/60, respirations 15, O2 95% on 3 L vi a nasal cannula. General: Awake, alert, oriented x3. Mild respiratory distress. Ill-appearing female, obese, BMI 35 .3. CV: S1 and S2. Regular rate and rhythm. Peripheral pulses present. Respiratory: Diminished breath sounds throughout. Some rhonchi heard. Gastrointestinal: Abdomen is soft, nontender, nondistended. Positive bowel sounds. Extremities: No clubbing, cyanosis, or edema. Neuro: Nonfocal. Laboratory Data: Sodium 140, potassium 4.8, chloride 99, CO2 32, BUN 8, creatinine 0.42, glucose 142 , calcium 8.4, albumin 2.2. WBC 6.8, H and H 9.4 and 28.8, platelets 37, neutrophils 89%. No growth from culture results. Assessment And Plan: A 48-year-old female with: 1.Acute respiratory failure with hypoxia and hypercapnia, still requiring BiPAP overnight, currently on 3 L via nasal cannula while she is eating, secondary to pulmonary metastases and chronic obstruct daylin pulmonary disease exacerbation. We will continue bronchodilators and steroids. Appreciate Dr. Ritu camarena's input. 2.Chronic obstructive pulmonary disease exacerbation has resolved. ABG shows chronic CO2 retainer p icture. Continue supplemental oxygen and bronchodilators. 3.Pancreatic cancer with metastases to intraabdominal lymph nodes, lungs and brain. Oncology on . The patient has a very poor prognosis due to failure on multiple chemotherapy agents. 4.Acute thrombocytopenia, platelets have improved. Transfuse if less than 15 or if bleeding occurs secondary to chemotherapy. 5.Gastroesophageal reflux disease. Continue PPI b.i.d. 6.Major depressive disorder, single episode. 7.Generalized anxiety disorder, on benzodiazepines. 8.Obesity, BMI 34.7. 9.Severe protein-calorie malnutrition. Albumin 2.1. We will continue supplements. 10.Nicotine dependence with cigarette smoking, continued. 11.Gastrointestinal and deep venous thrombosis prophylaxis addressed. Plan: Set up with noninvasive positive pressure ventilation for home. Discharge once arrangements h ave been made. Overall, poor prognosis. /HOLLIE Voice ID: [id number] Report ID: [id number]
[2018-08-08] MEDS: LEVALBUTEROL 1.25 MG/3 ML NEB NEB PRN (19:34)
[2018-08-08] MEDS: DULERA 200/5 (MOMETASONE/FORMOTEROL) INHALER IH SCH (20:39)
[2018-08-08] MEDS: predniSONE 10 MG TAB PO SCH (20:40)
[2018-08-08] MEDS: ONDANSETRON 4 MG/2 ML VIAL IV PRN (20:44)
[2018-08-08] MEDS: ALPRAZOLAM 0.5 MG TABLET PO PRN (22:44)
[2018-08-09] MEDS: IPRATROPIUM BROM 0.5MG/2.5ML NEB SCH ×4 (02:23→20:00)
[2018-08-09] MEDS: MORPHINE *EXTENDED RELEASE* 15 MG TAB PO SCH ×5 (03:14→21:11)
[2018-08-09] MEDS: HYDROMORPHONE HCL 0.5 MG/0.5 ML INJ IV PRN ×4 (04:52→19:55)
[2018-08-09] MEDS: ONDANSETRON 4 MG/2 ML VIAL IV PRN ×3 (04:52→16:30)
[2018-08-09] MEDS: PANTOPRAZOLE 40MG TABLET PO SCH (06:14)
[2018-08-09] MEDS: ALPRAZOLAM 0.5 MG TABLET PO PRN ×2 (10:33→21:14)
[2018-08-09] MEDS: SERTRALINE HCL 100 MG TAB PO SCH (10:34)
[2018-08-09] MEDS: predniSONE 10 MG TAB PO SCH ×2 (10:34→21:00)
[2018-08-09] MEDS: DULERA 200/5 (MOMETASONE/FORMOTEROL) INHALER IH SCH ×2 (10:35→21:09)
--- NOTE | 2018-08-09 20:04 | PN ---
Date of Progress Note: 08/09/2018 Subjective: The patient is seen and examined. Chart reviewed and case discussed with RN. The patient has some questions regarding her head CT scan and possibility of metastatic lesions to the brain. CT study was explained to the patient. Case was also discussed with Dr. Forman. Unclear if this lesion is metastatic. The patient will need further imaging such as MRI. Overall, the patient feels well. Awaiting to be set up for noninvasive vent prior to discharge. Medications: List reviewed. Physical Examination: Vital Signs: Temperature 98, heart rate 72, blood pressure 119/56, respirations 16, O2 95% on room air. General: Awake, alert, oriented x3. Ill-appearing female, obese. BMI of 35. CV: S1, S2. Regular rate and rhythm. Peripheral pulses present. Respiratory: Diminished breath sounds overall. No wheezing or stridor. Gastrointestinal: Abdomen is soft, nontender, nondistended. Positive bowel sounds. Extremities: No clubbing, cyanosis, or edema. Neurologic: Nonfocal. Laboratory Data: Pending. Assessment And Plan: 1. respiratory failure with hypoxia and hypercapnia. Does use BiPAP overnight , currently on 3 L via nasal cannula. Etiologies due to pulmonary metastases and chronic obstructive pulmonary disease. The patient has improved significantly. We will continue bronchodilators, steroids. Pulmonology on board. 2. Chronic obstructive pulmonary disease, stable. ABG does show elevated CO2. Therefore, the patient requires BiPAP intermittently. Continue supplemental oxygenation. 3. Pancreatic cancer with metastases to intraabdominal lymph nodes, lungs, possibly to the brain. CT scan of the head does show a 0.7 cm lesion in the right frontal lobe with an unclear significance. We will obtain MRI with contrast to further evaluate the status. Overall, the patient's prognosis is very poor due to failure on multiple chemotherapy agents. Appreciate Dr. Forman's input. 4. Acute thrombocytopenia secondary to chemotherapy, improving. Platelets up to 37. We will continue to monitor. 5. Gastroesophageal reflux disease. Continue PPI b.i.d. 6. Major depressive disorder, single episode. 7. Generalized anxiety disorder, on benzodiazepines, stable. 8. Obesity, BMI 34.7. 9. Severe protein-calorie malnutrition. Albumin 2.1. We will continue supplements. 10. Nicotine dependence with cigarette smoking, continuous. The patient counseled. 11. Gastrointestinal and deep venous thrombosis prophylaxis, addressed. Plan: Referral for noninvasive vent pending. Obtain MRI of brain. Discharge once durable medical equipment has been set up. /HOLLIE Voice ID: [id number] Report ID: [id number] MTDD
[2018-08-10] MEDS: HYDROMORPHONE HCL 0.5 MG/0.5 ML INJ IV PRN ×5 (00:10→22:10)
[2018-08-10] MEDS: ONDANSETRON 4 MG/2 ML VIAL IV PRN ×2 (00:43→22:26)
[2018-08-10] MEDS: IPRATROPIUM BROM 0.5MG/2.5ML NEB SCH ×4 (02:00→19:42)
[2018-08-10] MEDS: MORPHINE *EXTENDED RELEASE* 15 MG TAB PO SCH ×4 (02:43→21:07)
[2018-08-10 04:26] LABS: Absolute Lymphocytes (CBC) 0.5 K/uL (0.7-4.9); Absolute Monocytes 0.3 K/uL (0.1-1.3); Absolute Neutrophil 5.5 K/uL (1.8-8.0); Basophils % 0.2 % (0-1.3); Lymphocytes % 8.5 % (15.3-44.8); MPV 8.3 fL (7.6-11.3); RBC Red Blood Cell Count 3.19 M/uL (3.86-4.86)
[2018-08-10 05:27] LABS: ALT/SGPT 17 U/L (12-78); AST/SGOT 24 U/L (15-37); Albumin 2.3 g/dL (3.4-5.0); Alkaline Phosphatase 122 U/L (45-117); BUN Blood Urea Nitrogen 8 mg/dL (7-18); Bicarbonate 40 mmol/L (21-32); Bilirubin Total 0.5 mg/dL (0.2-1.0); Glucose Level 120 mg/dL (74-106); Potassium 4.9 mmol/L (3.5-5.1); Sodium Level 140 mmol/L (136-145)
[2018-08-10 05:34] LABS: Protime INR 1.35
[2018-08-10] MEDS: PANTOPRAZOLE 40MG TABLET PO SCH (06:16)
[2018-08-10] MEDS: DULERA 200/5 (MOMETASONE/FORMOTEROL) INHALER IH SCH ×2 (09:03→21:07)
--- NOTE | 2018-08-10 09:03 | RAD REPORT ---
EXAM DESCRIPTION: MRI - Brain W/Wo Cont - 08/10/2018 8:24 am CLINICAL HISTORY: Metastatic pancreatic carcinoma, abnormal CT study COMPARISON: CT head August 02 TECHNIQUE: Sagittal and axial T1-weighted images were obtained. Axial PD/heavily T2-weighted and T2- FLAIR images were obtained along with axial DWI/ADC mapping sequences. Coronal heavily T2 weighted s equence obtained. Axial and coronal post-contrast T1-weighted images were also obtained. A 20 ml Mul tihance contrast following utilized. FINDINGS: No intracranial hemorrhage is present and diffusion imaging shows no acute infarction. The re is no mass effect, edema or shift of midline structures. In the right frontal lobe white matter there is a 6-7 millimeter area of decreased T1 signal. On T2 a nd FLAIR sequencing the area of signal abnormality is 12 x 8 mm. Diffusion signal is hyperintense wit h hyperintense ADC mapping. Post-contrast imaging shows a peripheral ring of enhancement around the l esion. Collective MR findings are consistent with a right frontal lobe metastatic lesion. An additional small 4 mm focus of enhancement is present in the white matter of the posterior left te mporal lobe. There is a 3 millimeter enhancing focus in the right parietal lobe superiorly. The 10 mi llimeter enhancing lesion is present in the corpus callosum at the posterior body splenium junction. A 6 millimeter enhancing lesion is in the posteromedial right occipital lobe. No brainstem or cerebel lum metastatic lesions identifiable. Signal voids are seen as a normal finding in the major intracranial vessels. No dural thickening or enhancement seen. No globe or orbital content abnormality. Mastoid air cells and paranasal sinuses are clear. IMPRESSION: The right frontal lobe finding detailed on the August 02 CT study shows imaging ricci cteristics of a metastatic lesion. Patient has several additional metastatic lesions scattered in the cerebral hemispheres and the poste rior corpus callosum.
[2018-08-10] MEDS: predniSONE 10 MG TAB PO SCH ×2 (09:05→21:07)
[2018-08-10] MEDS: SERTRALINE HCL 100 MG TAB PO SCH (09:05)
[2018-08-10] MEDS: ALPRAZOLAM 0.5 MG TABLET PO PRN ×2 (09:58→22:10)
--- NOTE | 2018-08-10 12:07 | P.PN ---
Subjective Date of Service: 08/10/18 Chief Complaint: COPD exacerbation Patient is doing much better using BiPAP on a p.r.n. basis Review of Systems General: Weakness Respiratory: Shortness of Breath Physical Examination - Vital Signs Temperature: 98 F Blood Pressure: 110/59 Pulse: 91 Respirations: 18 Pulse Ox (%): 81 - Physical Exam General: Alert, Oriented x3 Respiratory: Clear to auscultation bilaterally Cardiovascular: No edema, Regular rate/rhythm - Studies Medications List Reviewed: Yes Assessment & Plan - Problems (Diagnosis) (1) COPD exacerbation Current Visit: Yes Status: Acute Plan: Patient is doing much better (2) Respiratory failure Current Visit: Yes Status: Acute Plan: Patient has chronic cyst stable respiratory failure blood gases show hypoxemia with hypercapnia pCO2 of 70 will benefit from a noninvasive ventilator or equivalent to prevent hospitalization patient will also qualify for home O2 she also benefit from a long-acting bronchodilator and low-dose prednisone and at discharge contacted [facility] patient has documented metastatic disease to the brain including her lung/patient has chronic respiratory failure is secondary to COPD Qualifiers: Chronicity: chronic Respiratory failure complication: hypercapnia Qualified Code(s): J96.12 - Chronic respiratory failure with hypercapnia
--- NOTE | 2018-08-10 16:50 | PN ---
Date of Progress Note: 08/10/2018 Subjective: The patient seen and examined. Chart reviewed and case discussed with RN and Dr. Forman. The patient unfortunately does have some metastatic lesions in the brain on MRI scan today. The patient was informed. Sister was also on the phone. Case also discussed with Dr. Rea. The patient still awaiting set up for noninvasive ventilator. Medication: List reviewed. Physical Examination: Vital Signs: Temperature 98, heart rate 91, blood pressure 110/59, respirations 18, O2 96% on 3 L via nasal cannula. General: Awake, alert, oriented x3, in somewhat emotional distress. Obese, BMI 35.3. CV: S1, S2. Regular rate and rhythm. No murmurs. Peripheral pulses present. Respiratory: Diminished breath sounds. Some rhonchi present. No wheezing or stridor. Gastrointestinal: Abdomen is soft, nontender, nondistended. Positive bowel sounds. Extremities: No clubbing, cyanosis, or edema. Neurologic: Nonfocal. Laboratory Data: Sodium 140, potassium 4.9, chloride 96, CO2 of 40, BUN 8, creatinine 0.41, glucose 120, calcium 8.7, AST 24, ALT 17, alkaline phosphatase 122, albumin 2.3. WBC 6.4, H and H 9.3 and 29, platelets 88, neutrophils 86%. Stool occult blood is negative. MRI of the brain shows right frontal lobe finding detailed on August 02. CT study shows imaging characteristics of a metastatic lesion. The patient has several additional metastatic lesions scattered in the cerebral hemispheres and posterior corpus callosum. Assessment And Plan: A 48-year-old female with: 1. Acute respiratory failure with hypoxia and hypercapnia, still requiring BiPAP overnight and mostly throughout the day secondary to pulmonary metastases and COPD. The patient has improved drastically, able to tolerate nasal cannula while eating. 2. Chronic obstructive pulmonary disease, stable. The patient is a chronic CO2 retainer. Requires BiPAP intermittently. Currently on supplemental oxygenation. 3. Pancreatic cancer. Ampullary cancer with metastases to intraabdominal lymph nodes, lungs and also to the brain. MRI of the brain does show several lesions ranging from 3 mm to approximately 10 mm. The patient's oncologist recommends Radiation Oncology consultation. We will recheck with Dr. Yang. Overall very poor prognosis. 4. Acute thrombocytopenia secondary to chemotherapy, improving. Platelets up to 87. We will continue to monitor. Transfuse if less than 15 or actively bleeding. 5. Gastroesophageal reflux disease. Continue PPI b.i.d. 6. Major depressive disorder, single episode. 7. Generalized anxiety disorder, on benzodiazepines. 8. Obesity, BMI 34.7. 9. Severe protein-calorie malnutrition. Albumin 2.3. We will continue supplements. 10. Nicotine dependence and cigarette smoking, continuous. The patient has been counseled. 11. Gastrointestinal and deep venous thrombosis prophylaxis addressed. Plan: Set up noninvasive positive pressure ventilation through [facility] and DC once durable medical equipment is set up. The patient will need to follow up with Oncology and Radiation Oncology as outpatient. Overall, very poor prognosis. ADDENDUM: Spoke w Dr. aYng who saw pt. He will f/up w her as out pt for whole brain radiation. /HOLLIE Voice ID: [id number] Report ID: [id number] MTDD
[2018-08-11] MEDS: IPRATROPIUM BROM 0.5MG/2.5ML NEB SCH ×4 (01:50→21:04)
[2018-08-11] MEDS: HYDROMORPHONE HCL 0.5 MG/0.5 ML INJ IV PRN ×6 (02:04→23:24)
[2018-08-11] MEDS: MORPHINE *EXTENDED RELEASE* 15 MG TAB PO SCH ×4 (03:18→21:06)
[2018-08-11] MEDS: ONDANSETRON 4 MG/2 ML VIAL IV PRN ×4 (03:26→23:23)
[2018-08-11 04:34] LABS: Absolute Lymphocytes (CBC) 0.6 K/uL (0.7-4.9); Absolute Monocytes 0.3 K/uL (0.1-1.3); Basophils % 0.2 % (0-1.3); Eosinophils % 0.1 % (0-4.4); Lymphocytes % 9.5 % (15.3-44.8); MPV 8.7 fL (7.6-11.3); Monocytes % 5.6 % (3.3-12.3); RBC Red Blood Cell Count 3.07 M/uL (3.86-4.86)
[2018-08-11 04:35] LABS: Protime INR 1.29
[2018-08-11 05:07] LABS: ALT/SGPT 15 U/L (12-78); AST/SGOT 24 U/L (15-37); Albumin 2.3 g/dL (3.4-5.0); Alkaline Phosphatase 106 U/L (45-117); BUN Blood Urea Nitrogen 9 mg/dL (7-18); Bilirubin Total 0.4 mg/dL (0.2-1.0); Glucose Level 163 mg/dL (74-106); Potassium 4.4 mmol/L (3.5-5.1); Protein, Total 6.9 g/dL (6.4-8.2); Sodium Level 141 mmol/L (136-145)
[2018-08-11 05:09] LABS: Bicarbonate 41 mmol/L (21-32)
[2018-08-11] MEDS: PANTOPRAZOLE 40MG TABLET PO SCH (06:04)
[2018-08-11] MEDS: SERTRALINE HCL 100 MG TAB PO SCH (08:46)
[2018-08-11] MEDS: predniSONE 10 MG TAB PO SCH ×2 (08:46→21:06)
[2018-08-11] MEDS: DULERA 200/5 (MOMETASONE/FORMOTEROL) INHALER IH SCH ×2 (09:04→21:06)
--- NOTE | 2018-08-11 14:45 | P.PN ---
Subjective Date of Service: 08/11/18 Chief Complaint: COPD exacerbation I think it would reviewed. Case discussed with pulmonology. Currently patient is awaiting noninvasive positive pressure ventilator set up to go home. No complaints to offer overnight. Did well overall. Review of Systems 10-point ROS is otherwise unremarkable Physical Examination - Vital Signs Temperature: 98.1 F Blood Pressure: 109/56 Pulse: 70 Respirations: 14 Pulse Ox (%): 96 - Physical Exam General: Alert, In no apparent distress HEENT: Atraumatic, PERRLA, EOMI Neck: Supple, JVD not distended Respiratory: Normal air movement, Expiratory wheezes, Inspiratory wheezes Cardiovascular: Regular rate/rhythm, Normal S1 S2 Gastrointestinal: Normal bowel sounds, No tenderness Musculoskeletal: No tenderness Integumentary: No rashes Neurological: Normal speech, Normal tone, Normal affect Lymphatics: No axilla or inguinal lymphadenopathy - Studies Medications List Reviewed: Yes Assessment And Plan - Current Problems (Diagnosis) (1) Respiratory distress Onset Date: 08/03/18 Current Visit: Yes Status: Acute Plan: Acute respiratory failure most likely secondary to hypercapnia and hypoxemia. -currently extubated and requiring BiPAP at this time. -Most likely secondary to pulmonary mets and COPD -patient will require noninvasive positive pressure ventilator for safe discharge home. -Currently able to tolerate nasal cannula while eating. (2) COPD (chronic obstructive pulmonary disease) Onset Date: 02/17/17 Current Visit: No Status: Chronic Plan: COPD exacerbation. Patient is a chronic CO2 retainer -currently on BiPAP. Will continue. Awaiting setup for noninvasive positive pressure ventilator for safe discharge home. -will continue with inhalers on discharge home. Qualifiers: COPD type: COPD with acute exacerbation Qualified Code(s): J44.1 - Chronic obstructive pulmonary disease with (acute) exacerbation (3) Pancreatic cancer metastasized to intra-abdominal lymph node Onset Date: 08/03/18 Current Visit: Yes Status: Chronic Plan: Pain-free at a cancer meds to intra-abdominal lymph nodes, adrenal gland, and now brain -radiation oncologist consulted. Recommend outpatient followup. (4) Depression Onset Date: 02/17/17 Current Visit: No Status: Chronic Qualifiers: Depression Type: unspecified Qualified Code(s): F32.9 - Major depressive disorder, single episode, unspecified (5) GERD (gastroesophageal reflux disease) Onset Date: 02/17/17 Current Visit: No Status: Chronic Qualifiers: Esophagitis presence: esophagitis presence not specified Qualified Code(s) : K21.9 - Gastro-esophageal reflux disease without esophagitis (6) Obesity Onset Date: 02/17/17 Current Visit: No Status: Chronic Qualifiers: Obesity type: unspecified obesity type Obesity classification: adult class 3 (BMI >= 40) Body mass index: BMI 40.0-44.9 (7) Tobacco abuse Onset Date: 02/17/17 Current Visit: No Status: Chronic - Plan Currently pending Set up noninvasive positive pressure ventilation through [facility] and DC once durable medical equipment is set up. The patient will need to follow up with Oncology and Radiation Oncology as outpatient. Overall, very poor prognosis. Discharge Plan: Home Plan to discharge in: 48 Hours - Code Status/Comfort Care Code Status Assessed: Yes Critical Care: No
[2018-08-11] MEDS: LEVALBUTEROL 1.25 MG/3 ML NEB NEB PRN (21:03)
[2018-08-11] MEDS: ALPRAZOLAM 0.5 MG TABLET PO PRN (21:06)
[2018-08-12] MEDS: IPRATROPIUM BROM 0.5MG/2.5ML NEB SCH ×4 (02:05→20:03)
[2018-08-12] MEDS: MORPHINE *EXTENDED RELEASE* 15 MG TAB PO SCH ×4 (03:24→21:40)
[2018-08-12] MEDS: HYDROMORPHONE HCL 0.5 MG/0.5 ML INJ IV PRN ×4 (03:26→22:52)
[2018-08-12] MEDS: PANTOPRAZOLE 40MG TABLET PO SCH (05:44)
[2018-08-12] MEDS: SERTRALINE HCL 100 MG TAB PO SCH (08:37)
[2018-08-12] MEDS: DULERA 200/5 (MOMETASONE/FORMOTEROL) INHALER IH SCH ×2 (08:37→21:42)
[2018-08-12] MEDS: predniSONE 10 MG TAB PO SCH ×2 (08:39→21:40)
[2018-08-12] MEDS: ALPRAZOLAM 0.5 MG TABLET PO PRN (10:11)
--- NOTE | 2018-08-12 16:55 | P.PN ---
Subjective Date of Service: 08/12/18 Chief Complaint: COPD exacerbation I think it would reviewed. Case discussed with pulmonology. Currently patient is awaiting noninvasive positive pressure ventilator set up to go home. No complaints to offer overnight. Did well overall. Review of Systems 10-point ROS is otherwise unremarkable Physical Examination - Vital Signs Temperature: 96.8 F Blood Pressure: 114/57 Pulse: 71 Respirations: 16 Pulse Ox (%): 94 - Physical Exam General: Alert, In no apparent distress HEENT: Atraumatic, PERRLA, EOMI Neck: Supple, JVD not distended Respiratory: Clear to auscultation bilaterally, Normal air movement Cardiovascular: Regular rate/rhythm, Normal S1 S2 Gastrointestinal: Normal bowel sounds, No tenderness Musculoskeletal: No tenderness Integumentary: No rashes Neurological: Normal speech, Normal tone, Normal affect Lymphatics: No axilla or inguinal lymphadenopathy - Studies Medications List Reviewed: Yes Assessment And Plan - Current Problems (Diagnosis) (1) Respiratory distress Onset Date: 08/03/18 Current Visit: Yes Status: Acute Plan: Acute respiratory failure most likely secondary to hypercapnia and hypoxemia. -currently extubated and requiring BiPAP at this time. -Most likely secondary to pulmonary mets and COPD -patient will require noninvasive positive pressure ventilator for safe discharge home. -Currently able to tolerate nasal cannula while eating. (2) COPD (chronic obstructive pulmonary disease) Onset Date: 02/17/17 Current Visit: No Status: Chronic Plan: COPD exacerbation. Patient is a chronic CO2 retainer -currently on BiPAP. Will continue. Awaiting setup for noninvasive positive pressure ventilator for safe discharge home. -will continue with inhalers on discharge home. Qualifiers: COPD type: COPD with acute exacerbation Qualified Code(s): J44.1 - Chronic obstructive pulmonary disease with (acute) exacerbation (3) Pancreatic cancer metastasized to intra-abdominal lymph node Onset Date: 08/03/18 Current Visit: Yes Status: Chronic Plan: Pain-free at a cancer meds to intra-abdominal lymph nodes, adrenal gland, and now brain -radiation oncologist consulted. Recommend outpatient followup. (4) Depression Onset Date: 02/17/17 Current Visit: No Status: Chronic Qualifiers: Depression Type: unspecified Qualified Code(s): F32.9 - Major depressive disorder, single episode, unspecified (5) GERD (gastroesophageal reflux disease) Onset Date: 02/17/17 Current Visit: No Status: Chronic Qualifiers: Esophagitis presence: esophagitis presence not specified Qualified Code(s) : K21.9 - Gastro-esophageal reflux disease without esophagitis (6) Obesity Onset Date: 02/17/17 Current Visit: No Status: Chronic Qualifiers: Obesity type: unspecified obesity type Obesity classification: adult class 3 (BMI >= 40) Body mass index: BMI 40.0-44.9 (7) Tobacco abuse Onset Date: 02/17/17 Current Visit: No Status: Chronic - Plan Currently pending Set up noninvasive positive pressure ventilation through [facility] and DC once durable medical equipment is set up. The patient will need to follow up with Oncology and Radiation Oncology as outpatient. Overall, very poor prognosis. Discharge Plan: Home Plan to discharge in: 48 Hours - Code Status/Comfort Care Code Status Assessed: Yes Critical Care: No
[2018-08-12] MEDS: ONDANSETRON 4 MG/2 ML VIAL IV PRN (19:34)
[2018-08-13] MEDS: IPRATROPIUM BROM 0.5MG/2.5ML NEB SCH ×4 (01:01→20:00)
[2018-08-13] MEDS: MORPHINE *EXTENDED RELEASE* 15 MG TAB PO SCH ×4 (03:32→21:24)
[2018-08-13] MEDS: ONDANSETRON 4 MG/2 ML VIAL IV PRN ×4 (03:33→23:00)
[2018-08-13] MEDS: PANTOPRAZOLE 40MG TABLET PO SCH (05:31)
[2018-08-13] MEDS: HYDROMORPHONE HCL 0.5 MG/0.5 ML INJ IV PRN ×4 (05:31→23:00)
[2018-08-13] MEDS: predniSONE 10 MG TAB PO SCH ×2 (09:41→21:23)
[2018-08-13] MEDS: SERTRALINE HCL 100 MG TAB PO SCH (09:41)
[2018-08-13] MEDS: DULERA 200/5 (MOMETASONE/FORMOTEROL) INHALER IH SCH ×2 (09:42→21:21)
[2018-08-13 11:37] LABS: Absolute Monocytes 0.3 K/uL (0.1-1.3); Absolute Neutrophil 4.8 K/uL (1.8-8.0); Basophils % 0.5 % (0-1.3); Eosinophils % 0.2 % (0-4.4); Hematocrit 29.2 % (36.0-45.0); Lymphocytes % 15.4 % (15.3-44.8); MPV 8.2 fL (7.6-11.3); Monocytes % 5.5 % (3.3-12.3); RBC Red Blood Cell Count 3.21 M/uL (3.86-4.86)
[2018-08-13 11:52] LABS: ALT/SGPT 15 U/L (12-78); AST/SGOT 20 U/L (15-37); Albumin 2.3 g/dL (3.4-5.0); Alkaline Phosphatase 108 U/L (45-117); BUN Blood Urea Nitrogen 10 mg/dL (7-18); Bicarbonate 36 mmol/L (21-32); Bilirubin Total 0.5 mg/dL (0.2-1.0); Glucose Level 151 mg/dL (74-106); Potassium 4.3 mmol/L (3.5-5.1); Protein, Total 7.1 g/dL (6.4-8.2); Sodium Level 140 mmol/L (136-145)
--- NOTE | 2018-08-13 14:27 | P.PN ---
Subjective Date of Service: 08/13/18 Chief Complaint: COPD exacerbation I think it would reviewed. Case discussed with pulmonology. Currently patient is awaiting noninvasive positive pressure ventilator set up to go home. No complaints to offer overnight. Did well overall. Review of Systems 10-point ROS is otherwise unremarkable Physical Examination - Vital Signs Temperature: 97.8 F Blood Pressure: 112/57 Pulse: 80 Respirations: 16 Pulse Ox (%): 94 - Physical Exam General: Alert, In no apparent distress HEENT: Atraumatic, PERRLA, EOMI Neck: Supple, JVD not distended Respiratory: Clear to auscultation bilaterally, Normal air movement Cardiovascular: Regular rate/rhythm, Normal S1 S2 Gastrointestinal: Normal bowel sounds, No tenderness Musculoskeletal: No tenderness Integumentary: No rashes Neurological: Normal speech, Normal tone, Normal affect Lymphatics: No axilla or inguinal lymphadenopathy - Studies Medications List Reviewed: Yes Assessment And Plan - Current Problems (Diagnosis) (1) Respiratory distress Onset Date: 08/03/18 Current Visit: Yes Status: Acute Plan: Acute respiratory failure most likely secondary to hypercapnia and hypoxemia. -currently extubated and requiring BiPAP at this time. -Most likely secondary to pulmonary mets and COPD -patient will require noninvasive positive pressure ventilator for safe discharge home. -Currently able to tolerate nasal cannula while eating. (2) COPD (chronic obstructive pulmonary disease) Onset Date: 02/17/17 Current Visit: No Status: Chronic Plan: COPD exacerbation. Patient is a chronic CO2 retainer -currently on BiPAP. Will continue. Awaiting setup for noninvasive positive pressure ventilator for safe discharge home. -will continue with inhalers on discharge home. Qualifiers: COPD type: COPD with acute exacerbation Qualified Code(s): J44.1 - Chronic obstructive pulmonary disease with (acute) exacerbation (3) Pancreatic cancer metastasized to intra-abdominal lymph node Onset Date: 08/03/18 Current Visit: Yes Status: Chronic Plan: Pain-free at a cancer meds to intra-abdominal lymph nodes, adrenal gland, and now brain -radiation oncologist consulted. Recommend outpatient followup. (4) Depression Onset Date: 02/17/17 Current Visit: No Status: Chronic Qualifiers: Depression Type: unspecified Qualified Code(s): F32.9 - Major depressive disorder, single episode, unspecified (5) GERD (gastroesophageal reflux disease) Onset Date: 02/17/17 Current Visit: No Status: Chronic Qualifiers: Esophagitis presence: esophagitis presence not specified Qualified Code(s) : K21.9 - Gastro-esophageal reflux disease without esophagitis (6) Obesity Onset Date: 02/17/17 Current Visit: No Status: Chronic Qualifiers: Obesity type: unspecified obesity type Obesity classification: adult class 3 (BMI >= 40) Body mass index: BMI 40.0-44.9 (7) Tobacco abuse Onset Date: 02/17/17 Current Visit: No Status: Chronic - Plan Currently pending Set up noninvasive positive pressure ventilation through [facility] and DC once durable medical equipment is set up. The patient will need to follow up with Oncology and Radiation Oncology as outpatient. Overall, very poor prognosis.
[2018-08-14] MEDS: IPRATROPIUM BROM 0.5MG/2.5ML NEB SCH ×4 (02:00→20:39)
[2018-08-14] MEDS: MORPHINE *EXTENDED RELEASE* 15 MG TAB PO SCH ×4 (03:00→20:22)
[2018-08-14] MEDS: PANTOPRAZOLE 40MG TABLET PO SCH (06:30)
[2018-08-14] MEDS: SERTRALINE HCL 100 MG TAB PO SCH (08:59)
[2018-08-14] MEDS: predniSONE 10 MG TAB PO SCH ×2 (08:59→20:22)
[2018-08-14] MEDS: DULERA 200/5 (MOMETASONE/FORMOTEROL) INHALER IH SCH ×2 (10:24→20:24)
[2018-08-14] MEDS ORDERED: HYDROMORPHONE HCL 0.5 MG/0.5 ML INJ IV ONE (10:37)
--- NOTE | 2018-08-14 11:16 | P.PN ---
Subjective Date of Service: 08/14/18 Chief Complaint: Chronic respiratory failure Patient is doing well she does require BiPAP at night the seems to help her breathing Review of Systems General: Weakness Respiratory: Shortness of Breath Physical Examination - Vital Signs Temperature: 97.9 F Blood Pressure: 105/53 Pulse: 72 Respirations: 18 Pulse Ox (%): 91 - Physical Exam General: Alert, In no apparent distress, Oriented x3 HEENT: Atraumatic Neck: Supple Respiratory: Clear to auscultation bilaterally, Diminished Cardiovascular: No edema, Regular rate/rhythm - Studies Medications List Reviewed: Yes Assessment And Plan - Current Problems (Diagnosis) (1) Respiratory failure Current Visit: Yes Status: Acute Plan: Patient is 48 years of age and not has chronic stable respiratory failure secondary to COPD patient's bicarb continues to remain elevated chemistries from August 13 still show that her bicarbonate is T is 36 despite use of BiPAP implying a failure of BiPAP the need for noninvasive ventilation Qualifiers: Chronicity: chronic Respiratory failure complication: hypercapnia Qualified Code(s): J96.12 - Chronic respiratory failure with hypercapnia
[2018-08-14] MEDS: ALPRAZOLAM 0.5 MG TABLET PO PRN ×2 (12:45→23:07)
--- NOTE | 2018-08-14 15:45 | P.PN ---
Subjective Date of Service: 08/14/18 Chief Complaint: Chronic respiratory failure pt on BIPAP ,denied any problems with breathing , pending biapa setup at home denied any chest pain, palpitation, shortness of breath, change in urinary or bowel habits or any other complaints Review of Systems 10-point ROS is otherwise unremarkable Physical Examination - Vital Signs Temperature: 97.8 F Blood Pressure: 125/58 Pulse: 73 Respirations: 18 Pulse Ox (%): 92 - Physical Exam General: Alert, Oriented x3 HEENT: Atraumatic, Normocephalic Respiratory: Clear to auscultation bilaterally, Normal air movement Cardiovascular: No edema, Normal pulses, Regular rate/rhythm Gastrointestinal: Normal bowel sounds, Soft and benign, Non-distended, No tenderness Integumentary: No rashes Neurological: Normal strength at 5/5 x4 extr - Studies Medications List Reviewed: Yes Assessment And Plan - Current Problems (Diagnosis) (1) Pulmonary metastasis Current Visit: Yes Status: Acute (2) Respiratory distress Onset Date: 08/03/18 Current Visit: Yes Status: Acute (3) Respiratory failure Current Visit: Yes Status: Acute (4) Pancreatic cancer metastasized to intra-abdominal lymph node Onset Date: 08/03/18 Current Visit: Yes Status: Chronic (5) COPD exacerbation Current Visit: Yes Status: Resolved (6) Respiratory failure Current Visit: Yes Status: Resolved Qualifiers: Chronicity: acute on chronic Respiratory failure complication: hypoxia and hypercapnia Qualified Code(s): J96.21 - Acute and chronic respiratory failure with hypoxia; J96.22 - Acute and chronic respiratory failure with hypercapnia (7) COPD (chronic obstructive pulmonary disease) Onset Date: 02/17/17 Current Visit: Yes Status: Chronic Qualifiers: COPD type: COPD with acute exacerbation Qualified Code(s): J44.1 - Chronic obstructive pulmonary disease with (acute) exacerbation (8) Obesity Onset Date: 02/17/17 Current Visit: No Status: Chronic Qualifiers: Obesity type: unspecified obesity type Obesity classification: adult class 3 (BMI >= 40) Body mass index: BMI 40.0-44.9 (9) Tobacco abuse Onset Date: 02/17/17 Current Visit: No Status: Chronic - Plan Assessment and plan Hypercapnic and hypoxic acute respiratory failure due to COPD and pulmonary Mets patient intubated and was extubated successfully Currently on BiPAP Continue DuoNeb Prednisone 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
[2018-08-15] MEDS: IPRATROPIUM BROM 0.5MG/2.5ML NEB SCH ×4 (01:47→19:29)
[2018-08-15] MEDS: MORPHINE *EXTENDED RELEASE* 15 MG TAB PO SCH ×4 (02:31→21:22)
[2018-08-15] MEDS: PANTOPRAZOLE 40MG TABLET PO SCH (06:30)
[2018-08-15 06:59] LABS: Absolute Lymphocytes (CBC) 0.9 K/uL (0.7-4.9); Absolute Monocytes 0.4 K/uL (0.1-1.3); Absolute Neutrophil 3.7 K/uL (1.8-8.0); Basophils % 0.4 % (0-1.3); Eosinophils % 0.1 % (0-4.4); Hematocrit 32.3 % (36.0-45.0); Lymphocytes % 17.5 % (15.3-44.8); MPV 7.5 fL (7.6-11.3); Monocytes % 7.6 % (3.3-12.3); RBC Red Blood Cell Count 3.54 M/uL (3.86-4.86)
[2018-08-15 07:14] LABS: ALT/SGPT 15 U/L (12-78); AST/SGOT 20 U/L (15-37); Albumin 2.5 g/dL (3.4-5.0); Alkaline Phosphatase 114 U/L (45-117); BUN Blood Urea Nitrogen 11 mg/dL (7-18); Bicarbonate 35 mmol/L (21-32); Bilirubin Total 0.4 mg/dL (0.2-1.0); Glucose Level 132 mg/dL (74-106); Potassium 4.3 mmol/L (3.5-5.1); Protein, Total 7.7 g/dL (6.4-8.2); Sodium Level 141 mmol/L (136-145)
[2018-08-15] MEDS: DULERA 200/5 (MOMETASONE/FORMOTEROL) INHALER IH SCH ×2 (08:12→21:24)
[2018-08-15] MEDS: SERTRALINE HCL 100 MG TAB PO SCH (08:12)
--- NOTE | 2018-08-15 14:15 | P.PN ---
Subjective Date of Service: 08/15/18 Chief Complaint: Chronic respiratory failure pt on BIPAP ,denied any problems with breathing , pending biapa setup at home denied any chest pain, palpitation, shortness of breath, change in urinary or bowel habits or any other complaints Review of Systems 10-point ROS is otherwise unremarkable Physical Examination - Vital Signs Temperature: 97.3 F Blood Pressure: 100/51 Pulse: 67 Respirations: 18 Pulse Ox (%): 96 - Physical Exam General: Alert, Oriented x3 HEENT: Atraumatic, Normocephalic, PERRLA Neck: Supple Respiratory: Clear to auscultation bilaterally, Normal air movement Cardiovascular: No edema, Regular rate/rhythm, Normal S1 S2, No murmurs Gastrointestinal: Normal bowel sounds, Soft and benign, Non-distended, No tenderness Musculoskeletal: No erythema Integumentary: No rashes Neurological: Normal strength at 5/5 x4 extr - Studies Medications List Reviewed: Yes Assessment And Plan - Current Problems (Diagnosis) (1) Pulmonary metastasis Current Visit: Yes Status: Acute (2) Respiratory distress Onset Date: 08/03/18 Current Visit: Yes Status: Acute (3) Respiratory failure Current Visit: Yes Status: Acute (4) Pancreatic cancer metastasized to intra-abdominal lymph node Onset Date: 08/03/18 Current Visit: Yes Status: Chronic (5) COPD exacerbation Current Visit: Yes Status: Resolved (6) Respiratory failure Current Visit: Yes Status: Resolved Qualifiers: Chronicity: acute on chronic Respiratory failure complication: hypoxia and hypercapnia Qualified Code(s): J96.21 - Acute and chronic respiratory failure with hypoxia; J96.22 - Acute and chronic respiratory failure with hypercapnia (7) COPD (chronic obstructive pulmonary disease) Onset Date: 02/17/17 Current Visit: Yes Status: Chronic Qualifiers: COPD type: COPD with acute exacerbation Qualified Code(s): J44.1 - Chronic obstructive pulmonary disease with (acute) exacerbation (8) Obesity Onset Date: 02/17/17 Current Visit: No Status: Chronic Qualifiers: Obesity type: unspecified obesity type Obesity classification: adult class 3 (BMI >= 40) Body mass index: BMI 40.0-44.9 (9) Tobacco abuse Onset Date: 02/17/17 Current Visit: No Status: Chronic - Plan Assessment and plan Hypercapnic and hypoxic acute respiratory failure due to COPD and pulmonary Mets patient intubated and was extubated successfully Currently on BiPAP Continue DuoNeb Prednisone 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
[2018-08-15] MEDS: ONDANSETRON 4 MG/2 ML VIAL IV PRN ×2 (15:42→21:28)
[2018-08-15] MEDS: ALPRAZOLAM 0.5 MG TABLET PO PRN (22:33)
[2018-08-16] MEDS: IPRATROPIUM BROM 0.5MG/2.5ML NEB SCH ×4 (01:16→19:35)
[2018-08-16] MEDS: MORPHINE *EXTENDED RELEASE* 15 MG TAB PO SCH ×4 (02:47→20:09)
[2018-08-16 05:25] LABS: Absolute Lymphocytes (CBC) 1.3 K/uL (0.7-4.9); Absolute Monocytes 0.5 K/uL (0.1-1.3); Absolute Neutrophil 3.3 K/uL (1.8-8.0); Basophils % 0.5 % (0-1.3); Eosinophils % 0.3 % (0-4.4); Hematocrit 29.7 % (36.0-45.0); Lymphocytes % 25.5 % (15.3-44.8); MPV 7.7 fL (7.6-11.3); Monocytes % 10.4 % (3.3-12.3); RBC Red Blood Cell Count 3.29 M/uL (3.86-4.86)
[2018-08-16 05:38] LABS: ALT/SGPT 13 U/L (12-78); AST/SGOT 23 U/L (15-37); Albumin 2.2 g/dL (3.4-5.0); Alkaline Phosphatase 117 U/L (45-117); BUN Blood Urea Nitrogen 10 mg/dL (7-18); Bicarbonate 34 mmol/L (21-32); Bilirubin Total 0.6 mg/dL (0.2-1.0); Glucose Level 89 mg/dL (74-106); Protein, Total 6.9 g/dL (6.4-8.2); Sodium Level 138 mmol/L (136-145)
[2018-08-16] MEDS: PANTOPRAZOLE 40MG TABLET PO SCH (06:34)
[2018-08-16] MEDS: SERTRALINE HCL 100 MG TAB PO SCH (08:03)
[2018-08-16] MEDS: DULERA 200/5 (MOMETASONE/FORMOTEROL) INHALER IH SCH ×2 (08:04→20:08)
[2018-08-16] MEDS: ONDANSETRON 4 MG/2 ML VIAL IV PRN ×2 (14:56→20:09)
--- NOTE | 2018-08-16 15:09 | P.PN ---
Subjective Date of Service: 08/16/18 Chief Complaint: Chronic respiratory failure pt on BIPAP ,denied any problems with breathing , pending biapa setup at home denied any chest pain, palpitation, shortness of breath, change in urinary or bowel habits or any other complaints Physical Examination - Vital Signs Temperature: 97.3 F Blood Pressure: 108/61 Pulse: 88 Respirations: 18 Pulse Ox (%): 93 - Physical Exam General: Alert, Oriented x3 HEENT: Atraumatic, Normocephalic, PERRLA Neck: Supple, JVD not distended Respiratory: Clear to auscultation bilaterally, Normal air movement Cardiovascular: No edema, Normal pulses, Regular rate/rhythm, Normal S1 S2 Gastrointestinal: Normal bowel sounds, Soft and benign, Non-distended Integumentary: No rashes Neurological: Normal speech, Normal strength at 5/5 x4 extr, Normal tone - Studies Medications List Reviewed: Yes Assessment And Plan - Current Problems (Diagnosis) (1) Pulmonary metastasis Current Visit: Yes Status: Acute (2) Respiratory distress Onset Date: 08/03/18 Current Visit: Yes Status: Acute (3) Respiratory failure Current Visit: Yes Status: Acute (4) Pancreatic cancer metastasized to intra-abdominal lymph node Onset Date: 08/03/18 Current Visit: Yes Status: Chronic (5) COPD exacerbation Current Visit: Yes Status: Resolved (6) Respiratory failure Current Visit: Yes Status: Resolved Qualifiers: Chronicity: acute on chronic Respiratory failure complication: hypoxia and hypercapnia Qualified Code(s): J96.21 - Acute and chronic respiratory failure with hypoxia; J96.22 - Acute and chronic respiratory failure with hypercapnia (7) COPD (chronic obstructive pulmonary disease) Onset Date: 02/17/17 Current Visit: Yes Status: Chronic Qualifiers: COPD type: COPD with acute exacerbation Qualified Code(s): J44.1 - Chronic obstructive pulmonary disease with (acute) exacerbation (8) Obesity Onset Date: 02/17/17 Current Visit: No Status: Chronic Qualifiers: Obesity type: unspecified obesity type Obesity classification: adult class 3 (BMI >= 40) Body mass index: BMI 40.0-44.9 (9) Tobacco abuse Onset Date: 02/17/17 Current Visit: No Status: Chronic - Plan Assessment and plan Hypercapnic and hypoxic acute respiratory failure due to COPD and pulmonary Mets patient intubated and was extubated successfully Currently on BiPAP Continue DuoNeb Prednisone 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
[2018-08-16] MEDS: ALPRAZOLAM 0.5 MG TABLET PO PRN (20:08)
[2018-08-17] MEDS: IPRATROPIUM BROM 0.5MG/2.5ML NEB SCH ×2 (01:30→07:44)
[2018-08-17] MEDS: MORPHINE *EXTENDED RELEASE* 15 MG TAB PO SCH ×4 (02:05→21:57)
[2018-08-17] MEDS: ONDANSETRON 4 MG/2 ML VIAL IV PRN ×3 (02:05→22:01)
[2018-08-17 04:40] LABS: Absolute Lymphocytes (CBC) 1.3 K/uL (0.7-4.9); Absolute Monocytes 0.6 K/uL (0.1-1.3); Basophils % 0.6 % (0-1.3); Eosinophils % 0.5 % (0-4.4); Hematocrit 29.2 % (36.0-45.0); Lymphocytes % 26.6 % (15.3-44.8); MPV 7.5 fL (7.6-11.3); Monocytes % 12.9 % (3.3-12.3); RBC Red Blood Cell Count 3.26 M/uL (3.86-4.86)
[2018-08-17 04:50] LABS: ALT/SGPT 14 U/L (12-78); AST/SGOT 28 U/L (15-37); Albumin 2.1 g/dL (3.4-5.0); Alkaline Phosphatase 133 U/L (45-117); BUN Blood Urea Nitrogen 10 mg/dL (7-18); Bicarbonate 34 mmol/L (21-32); Bilirubin Total 0.9 mg/dL (0.2-1.0); Glucose Level 125 mg/dL (74-106); Potassium 3.9 mmol/L (3.5-5.1); Protein, Total 6.8 g/dL (6.4-8.2); Sodium Level 137 mmol/L (136-145)
[2018-08-17] MEDS ORDERED: POTASSIUM CL SA 10 MEQ TAB PO ONE (05:07)
[2018-08-17] MEDS: PANTOPRAZOLE 40MG TABLET PO SCH (05:41)
[2018-08-17 06:27] VITALS: BMI 37.2
[2018-08-17] MEDS: DULERA 200/5 (MOMETASONE/FORMOTEROL) INHALER IH SCH ×2 (08:57→21:58)
[2018-08-17] MEDS: SERTRALINE HCL 100 MG TAB PO SCH (08:57)
[2018-08-17] MEDS: ALPRAZOLAM 0.5 MG TABLET PO PRN (09:00)
[2018-08-17] MEDS ORDERED: IPRATROPIUM BROM 0.5MG/2.5ML NEB PRN (13:58)
--- NOTE | 2018-08-17 14:45 | P.PN ---
Subjective Date of Service: 08/17/18 Primary Care Provider: unknown Chief Complaint: Chronic respiratory failure Subjective: Improving Physical Examination - Vital Signs Temperature: 97.4 F Blood Pressure: 101/52 Pulse: 94 Respirations: 20 Pulse Ox (%): 94 - Physical Exam General: Alert, In no apparent distress, Oriented x3, Cooperative HEENT: Atraumatic Neck: Supple Respiratory: Clear to auscultation bilaterally, Normal air movement Cardiovascular: Normal pulses, Regular rate/rhythm Gastrointestinal: Normal bowel sounds, Soft and benign, Non-distended, No tenderness, No masses, No rebound, No guarding Musculoskeletal: No erythema, No tenderness, No warmth Integumentary: No erythema, No warmth, No cyanosis Neurological: Normal speech, Normal strength at 5/5 x4 extr, Normal tone, Normal affect - Studies Medications List Reviewed: Yes Assessment & Plan Discharge Plan: Home Plan to discharge in: 24 Hours Physician Review Additional Text: Impression: Acute on chronic respiratory failure secondary to COPD exacerbation complicated with pulmonary metastasis Pancreatic carcinoma, stage IV with metastasis to the lung Tobacco abuse Obesity, BMI 37 Anemia likely of chronic disease Plan: Acute on chronic respiratory failure secondary to COPD exacerbation complicated with pulmonary metastasis: Patient continues to improve. Case discussed with pulmonology. Patient to have Overnite pulse oximetry to evaluate for need of BiPAP. Social work helping to get BiPAP at home. If this is not successful, patient may be able to be discharged home and try to get BiPAP by buying it without insurance. This made be costly for the patient. But this may be her only option. Await approval for BiPAP. Pancreatic carcinoma, stage IV with metastasis to the lung: Overall stable. Patient to continue with pain medication. Patient to follow up with oncology as outpatient. Tobacco abuse: Continued tobacco cessation. Obesity, BMI 37: Continue lifestyle modification education. Anemia likely of chronic disease: Will monitor closely. Time Spent Managing Pts Care (In Minutes): 55
[2018-08-18] MEDS: MORPHINE *EXTENDED RELEASE* 15 MG TAB PO SCH ×4 (03:06→20:56)
[2018-08-18] MEDS: ONDANSETRON 4 MG/2 ML VIAL IV PRN ×4 (03:11→20:57)
[2018-08-18] MEDS: PANTOPRAZOLE 40MG TABLET PO SCH (06:05)
[2018-08-18 06:32] LABS: BUN Blood Urea Nitrogen 9 mg/dL (7-18); Bicarbonate 35 mmol/L (21-32); Glucose Level 118 mg/dL (74-106); Potassium 4.1 mmol/L (3.5-5.1); Sodium Level 137 mmol/L (136-145)
--- NOTE | 2018-08-18 08:53 | P.PN ---
Subjective Date of Service: 08/18/18 Primary Care Provider: unknown Chief Complaint: Chronic respiratory failure Patient is feeling better is did experience significant desaturation on oxygen off BiPAP Review of Systems Unremarkable Physical Examination - Vital Signs Temperature: 97.2 F Blood Pressure: 105/60 Pulse: 84 Respirations: 20 Pulse Ox (%): 94 - Physical Exam General: Alert, Oriented x3 Respiratory: Clear to auscultation bilaterally Cardiovascular: No edema, Regular rate/rhythm - Studies Medications List Reviewed: Yes Assessment & Plan - Problems (Diagnosis) (1) Respiratory failure Current Visit: Yes Status: Acute Plan: Patient has chronic stable respiratory failure secondary to COPD patient experiences significant desaturation on oxygen at night are with continuous pulse oximetry patient can be discharged home on a Advair she does qualify for home O2 vital signs are stable Qualifiers: Chronicity: chronic Respiratory failure complication: hypercapnia Qualified Code(s): J96.12 - Chronic respiratory failure with hypercapnia Physician Review Additional Text: Impression: Acute on chronic respiratory failure secondary to COPD exacerbation complicated with pulmonary metastasis Pancreatic carcinoma, stage IV with metastasis to the lung Tobacco abuse Obesity, BMI 37 Anemia likely of chronic disease Plan: Acute on chronic respiratory failure secondary to COPD exacerbation complicated with pulmonary metastasis: Patient continues to improve. Case discussed with pulmonology. Patient to have Overnite pulse oximetry to evaluate for need of BiPAP. Social work helping to get BiPAP at home. If this is not successful, patient may be able to be discharged home and try to get BiPAP by buying it without insurance. This made be costly for the patient. But this may be her only option. Await approval for BiPAP. Pancreatic carcinoma, stage IV with metastasis to the lung: Overall stable. Patient to continue with pain medication. Patient to follow up with oncology as outpatient. Tobacco abuse: Continued tobacco cessation. Obesity, BMI 37: Continue lifestyle modification education. Anemia likely of chronic disease: Will monitor closely.
[2018-08-18] MEDS: ALPRAZOLAM 0.5 MG TABLET PO PRN (09:10)
[2018-08-18] MEDS: SERTRALINE HCL 100 MG TAB PO SCH (09:10)
[2018-08-18] MEDS: DULERA 200/5 (MOMETASONE/FORMOTEROL) INHALER IH SCH ×2 (09:11→20:57)
[2018-08-18] MEDS ORDERED: LEVALBUTEROL 1.25 MG/3 ML NEB NEB PRN (12:27)
--- NOTE | 2018-08-18 15:51 | P.PN ---
Subjective Date of Service: 08/18/18 Primary Care Provider: unknown Chief Complaint: Chronic respiratory failure Subjective: Improving, Doing well Physical Examination - Vital Signs Temperature: 97 F Blood Pressure: 111/50 Pulse: 94 Respirations: 20 Pulse Ox (%): 94 - Physical Exam General: Alert, In no apparent distress, Cooperative HEENT: Atraumatic Neck: Supple Respiratory: Clear to auscultation bilaterally, Normal air movement Cardiovascular: Normal pulses, Regular rate/rhythm Gastrointestinal: Normal bowel sounds, Soft and benign, Non-distended Musculoskeletal: No erythema, No tenderness, No warmth Integumentary: No erythema, No warmth, No cyanosis Neurological: Normal speech, Normal strength at 5/5 x4 extr, Normal tone, Normal affect - Studies Medications List Reviewed: Yes Assessment & Plan Discharge Plan: Home Plan to discharge in: 24 Hours Physician Review Additional Text: Impression: Acute on chronic respiratory failure secondary to COPD exacerbation complicated with pulmonary metastasis Pancreatic carcinoma, stage IV with metastasis to the lung Tobacco abuse Obesity, BMI 37 Anemia likely of chronic disease Plan: Acute on chronic respiratory failure secondary to COPD exacerbation complicated with pulmonary metastasis: Patient continues to improve. Case discussed with pulmonology. Patient has been approved for noninvasive ventilator. Will make arrangements for the patient to get noninvasive ventilator. Once this is in place at home the patient can be discharged home. Patient to continue with oxygen to maintain sats above 90%. Patient will need close follow up with pulmonology. Pancreatic carcinoma, stage IV with metastasis to the lung: Overall stable. Patient to continue with pain medication. Patient to follow up with oncology as outpatient. Tobacco abuse: Continued tobacco cessation. Obesity, BMI 37: Continue lifestyle modification education. Anemia likely of chronic disease: Will monitor closely. Time Spent Managing Pts Care (In Minutes): 55
--- NOTE | 2018-08-18 18:14 | P.DS ---
Admission Date: 08/01/18 Discharge Date: 08/18/18 Primary Care Provider: unknown; Fabiana Rea Disposition: ROUTINE DISCHARGE Discharge Condition: FAIR Reason for Admission: Chronic respiratory failure Consultations: Pulmonary-Dr. Rea Procedures: Brain MRI: TECHNIQUE: Sagittal and axial T1-weighted images were obtained. Axial PD/ heavily T2-weighted and T2-FLAIR images were obtained along with axial DWI/ADC mapping sequences. Coronal heavily T2 weighted sequence obtained. Axial and coronal post-contrast T1-weighted images were also obtained. A 20 ml Multihance contrast following utilized. FINDINGS: No intracranial hemorrhage is present and diffusion imaging shows no acute infarction. There is no mass effect, edema or shift of midline structures. In the right frontal lobe white matter there is a 6-7 millimeter area of decreased T1 signal. On T2 and FLAIR sequencing the area of signal abnormality is 12 x 8 mm. Diffusion signal is hyperintense with hyperintense ADC mapping. Post-contrast imaging shows a peripheral ring of enhancement around the lesion. Collective MR findings are consistent with a right frontal lobe metastatic lesion. An additional small 4 mm focus of enhancement is present in the white matter of the posterior left temporal lobe. There is a 3 millimeter enhancing focus in the right parietal lobe superiorly. The 10 millimeter enhancing lesion is present in the corpus callosum at the posterior body splenium junction. A 6 millimeter enhancing lesion is in the posteromedial right occipital lobe. No brainstem or cerebellum metastatic lesions identifiable. Signal voids are seen as a normal finding in the major intracranial vessels. No dural thickening or enhancement seen. No globe or orbital content abnormality. Mastoid air cells and paranasal sinuses are clear. IMPRESSION: The right frontal lobe finding detailed on the August 02 CT study shows imaging characteristics of a metastatic lesion. Patient has several additional metastatic lesions scattered in the cerebral hemispheres and the posterior corpus callosum. CT Scan: COMPARISON: No relevant prior studies available. TECHNIQUE: Axial computed tomographic angiography images of the chest with intravenous contrast using pulmonary embolism protocol. Sagittal, and coronal reformatted images were created and reviewed. This CT exam was performed using one of more of the following does reduction techniques: automated exposure control, adjustment of the mA and/or kV according to patient size and/or less of iterative reconstruction technique. FINDINGS: Pulmonary arteries: There are no obvious filling defects identified within the pulmonary arteries to suggest pulmonary embolism. Aorta: No acute findings. No thoracic aortic aneurysm. Lungs: Innumerable large pulmonary masses are scattered throughout the lungs. The largest within the right lung measures 8.7 x 5.7 cm on axial image 56. The largest in the left lung measures 6.7 x 6.7 cm on axial image 22. Subtle groundglass opacity within the right middle lobe is present. Pleural space: Unremarkable. No significant pericardial effusion. No evidence of RV dysfunction. Bones/Joints: Mild degenerative change of the spine is present. No acute fracture. No dislocation. Soft tissues: Unremarkable. Lymph nodes: Several enlarged left hilar lymph nodes are present, the largest of which measures 3.1 cm. Liver: The liver is enlarged. Retroperitoneal space: There is a heterogeneous soft tissue mass partially visualized within the retroperitoneum on the left measuring 4.0 x 3.6 cm. Tubes, lines and devices: Endotracheal tube is present with the tip superior to the ivan. A right chest port is present with the tip in the SVC. IMPRESSION: 1. No evidence of pulmonary embolism. 2. Innumerable pulmonary masses throughout the lungs consistent with the patient 's history of metastatic disease. 3. Partial visualization of a heterogeneous soft tissue mass within the left periaortic region. ECHO: EF 61% LEFT VENTRICULAR WALL MOTION: NORMAL DOPPLER/COLOR FLOW: MILD MITRAL REGURGITATION AND TRICUSPID REGURGITATION. NORMAL RIGHT VENTRICULAR SYSTOLIC PRESSURE. COMMENTS: NORMAL TWO DIMENSIONAL ECHOCARDIOGRAM. MILD MITRAL REGURGITATION AND TRICUSPID REGURGITATION. Medical Problem List: Acute on chronic respiratory failure secondary to COPD exacerbation complicated with pulmonary metastasis Pancreatic carcinoma, stage IV with metastasis to the lung Tobacco abuse Obesity, BMI 37 Anemia likely of chronic disease Brief History of Present Illness: 48-year-old female presented to the emergency room with shortness of breath. Patient came in with acute respiratory failure and was intubated. Hospital Course: Patient presented with acute on chronic respiratory failure secondary to COPD exacerbation complicated with pulmonary metastasis. Patient was initially on a ventilator. She was weaned off. During the course of her stay pulmonology tried to make arrangements for her to get a noninvasive ventilator. She was evaluated twice with information sent to insurance. Insurance denied this twice. Patient stable at discharge with oxygen. She is to maintain oxygen saturations above 90%. At discharge she will continue with COPD medication including Advair 1 puff twice daily. Xopenex and Atrovent nebs will be provided at 1 unit dose 3 times a day as needed for shortness of breath. Patient will follow up with pulmonology to further monitor her condition. Hopefully she can be further evaluated by pulmonology to get the noninvasive ventilator if her symptoms worsen. Patient with pancreatic cancer, stage IV with metastasis to the lung. Patient will continue with chronic pain medication including morphine ER 30 mg 1 pill 3 times a day. She also takes gabapentin 300 mg 3 times a day. Patient to follow up with oncology to continue pain management. Tobacco cessation addressed in detail. Patient with underlying depression. Patient will continue with her medications including Zoloft 100 mg daily and Effexor 150 mg at bedtime. Further adjustment can be done by her PCP. Patient also takes Xanax 0.5 mg twice daily as needed for anxiety. Vital Signs/Physical Exam: Temp Pulse Resp BP Pulse Ox 96.9 F 85 16 109/54 L 92 08/18/18 16:00 08/18/18 16:00 08/18/18 16:00 08/18/18 16:00 08/18/18 16:00 General: Alert, In no apparent distress, Oriented x3, Cooperative HEENT: Atraumatic Neck: Supple Respiratory: Clear to auscultation bilaterally, Normal air movement Cardiovascular: Normal pulses, Regular rate/rhythm Gastrointestinal: Normal bowel sounds, Soft and benign, Non-distended, No masses , No rebound, No guarding Musculoskeletal: No erythema, No tenderness, No warmth Integumentary: No erythema, No warmth, No cyanosis Neurological: Normal speech, Normal strength at 5/5 x4 extr, Normal tone, Normal affect Laboratory Data at Discharge: WBC 5.0 K/uL (4.3-10.9) 08/17/18 04:20 Hgb 9.5 g/dL (12.0-15.0) L 08/17/18 04:20 Hct 29.2 % (36.0-45.0) L 08/17/18 04:20 Plt Count 197 K/uL (152-406) 08/17/18 04:20 PT 15.1 SECONDS (9.5-12.5) H 08/11/18 04:04 INR 1.29 08/11/18 04:04 APTT 31.3 SECONDS (21.7-34.4) 08/07/18 05:36 Sodium 137 mmol/L (136-145) 08/18/18 06:03 Potassium 4.1 mmol/L (3.5-5.1) 08/18/18 06:03 BUN 9 mg/dL (7-18) 08/18/18 06:03 Creatinine 0.49 mg/dL (0.55-1.3) L 08/18/18 06:03 Glucose 118 mg/dL (74-106) H 08/18/18 06:03 Phosphorus 3.0 mg/dL (2.5-4.9) 08/04/18 05:09 Magnesium 1.9 mg/dL (1.8-2.4) 08/04/18 05:09 Total Bilirubin 0.9 mg/dL (0.2-1.0) 08/17/18 04:20 AST 28 U/L (15-37) 08/17/18 04:20 ALT 14 U/L (12-78) 08/17/18 04:20 Alkaline Phosphatase 133 U/L (45-117) H 08/17/18 04:20 Home Medications: ALPRAZolam [Xanax*] 0.5 mg PO BID PRN 08/01/18 Dexamethasone [Decadron] 4 mg PO BID 08/01/18 Gabapentin 300 mg PO TID 08/01/18 Morphine Sulfate [Morphine Sulfate ER] 30 mg PO Q8H 08/01/18 Omeprazole 20 mg PO DAILY 08/01/18 Prochlorperazine Maleate [Compazine] 10 mg PO Q8H PRN 08/01/18 Sertraline [Zoloft*] 100 mg PO DAILY 08/01/18 Venlafaxine HCl [Venlafaxine HCl ER] 150 mg PO BEDTIME 08/01/18 Fluticasone/Salmeterol [Advair 250-50 Diskus] 1 each IH BID 30 Days blst.w.dev 08/14/18 Ipratropium Neb [Atrovent*] 0.5 mg NEB TID PRN #90 amp 08/18/18 Levalbuterol [Xopenex*] 1.25 mg NEB TID PRN #90 vial 08/18/18 New Medications: Fluticasone/Salmeterol [Advair 250-50 Diskus] 1 each IH BID 30 Days blst.w.dev Ipratropium Neb [Atrovent*] 0.5 mg NEB TID PRN #90 amp PRN Reason: Shortness Of Breath Levalbuterol [Xopenex*] 1.25 mg NEB TID PRN #90 vial PRN Reason: Shortness Of Breath Patient Discharge Instructions: 1. Patient presented with acute on chronic respiratory failure secondary to COPD exacerbation complicated with pulmonary metastasis. Patient was initially on a ventilator. She was weaned off. During the course of her stay pulmonology tried to make arrangements for her to get a noninvasive ventilator. She was evaluated twice with information sent to insurance. Insurance denied this twice. Patient stable at discharge with oxygen. She is to maintain oxygen saturations above 90%. At discharge she will continue with COPD medication including Advair 1 puff twice daily. Xopenex and Atrovent nebs will be provided at 1 unit dose 3 times a day as needed for shortness of breath. Patient will follow up with pulmonology to further monitor her condition. Hopefully she can be further evaluated by pulmonology to get the noninvasive ventilator if her symptoms worsen. 2. Patient with pancreatic cancer, stage IV with metastasis to the lung. Patient will continue with chronic pain medication including morphine ER 30 mg 1 pill 3 times a day. She also takes gabapentin 300 mg 3 times a day. Patient to follow up with oncology to continue pain management. 3. Tobacco cessation addressed in detail. 4. Patient with underlying depression. Patient will continue with her medications including Zoloft 100 mg daily and Effexor 150 mg at bedtime. Further adjustment can be done by her PCP. Patient also takes Xanax 0.5 mg twice daily as needed for anxiety. 5. Please give her day sample of Dulera from the hospital. She can use it 2 puffs twice a day and fax a prescription for Advair has been sent by Dr. Rea. Diet: AHA Activity: Fall precautions Time spent managing pt's care (in minutes): 55
[2018-08-19] MEDS: MORPHINE *EXTENDED RELEASE* 15 MG TAB PO SCH ×2 (02:59→08:01)
[2018-08-19] MEDS: ONDANSETRON 4 MG/2 ML VIAL IV PRN ×2 (03:02→08:02)
[2018-08-19] MEDS: ALPRAZOLAM 0.5 MG TABLET PO PRN (03:48)
[2018-08-19] MEDS: PANTOPRAZOLE 40MG TABLET PO SCH (06:43)
[2018-08-19] MEDS: SERTRALINE HCL 100 MG TAB PO SCH (08:01)
[2018-08-19] MEDS: DULERA 200/5 (MOMETASONE/FORMOTEROL) INHALER IH SCH (08:06)
[2018-08-19 10:52] VITALS: O2SAT 93
[2018-08-19 14:28] VITALS: BP 132/63; TEMP 97
== END 2018-08-19 14:56 | disposition home or self-care (01) | DRG 208 ==
LOC: ER 07:06 → OBSVTOIN 10:12 → ERHOLD 10:12 → 2ND 13:50 → 3RD-ICU 08-02 01:00 → 4TH 08-07 10:15
PROVIDERS: ADMIT Family Medicine; ATTEND Family Medicine
PROC: 5A1945Z Respiratory Ventilation, 24-96 Consecutive Hours (ICD-10-PCS; principal; 2018-08-02)
PROC: 0BH17EZ Insertion of Endotracheal Airway into Trachea, Via Natural or Artificial Opening (ICD-10-PCS; 2018-08-02)
PROC: 5A12012 Performance of Cardiac Output, Single, Manual (ICD-10-PCS; 2018-08-02)
PROC: 02HV33Z Insertion of Infusion Device into Superior Vena Cava, Percutaneous Approach (ICD-10-PCS; 2018-08-02)
PROC: 0D9670Z Drainage of Stomach with Drainage Device, Via Natural or Artificial Opening (ICD-10-PCS; 2018-08-02)
PROC: 5A09557 Assistance with Respiratory Ventilation, Greater than 96 Consecutive Hours, Continuous Positive Airway Pressure (ICD-10-PCS; 2018-08-04)
DX: J44.0 Chronic obstructive pulmonary disease with (acute) lower respiratory infection (principal); J96.22 Acute and chronic respiratory failure with hypercapnia; J96.21 Acute and chronic respiratory failure with hypoxia; E43 Unspecified severe protein-calorie malnutrition; J18.9 Pneumonia, unspecified organism; J09.X1 Influenza due to identified novel influenza A virus with pneumonia; C25.9 Malignant neoplasm of pancreas, unspecified; C78.02 Secondary malignant neoplasm of left lung; C78.01 Secondary malignant neoplasm of right lung; E87.2 Acidosis; C77.2 Secondary and unspecified malignant neoplasm of intra-abdominal lymph nodes; D61.818 Other pancytopenia; C79.31 Secondary malignant neoplasm of brain; J44.1 Chronic obstructive pulmonary disease with (acute) exacerbation; F17.210 Nicotine dependence, cigarettes, uncomplicated; E66.9 Obesity, unspecified; Z68.37 Body mass index [BMI] 37.0-37.9, adult; D63.8 Anemia in other chronic diseases classified elsewhere; F32.9 Major depressive disorder, single episode, unspecified; Z88.1 Allergy status to other antibiotic agents; K21.9 Gastro-esophageal reflux disease without esophagitis; D72.819 Decreased white blood cell count, unspecified; D69.59 Other secondary thrombocytopenia; T45.1X5A Adverse effect of antineoplastic and immunosuppressive drugs, initial encounter; Y92.019 Unspecified place in single-family (private) house as the place of occurrence of the external cause; F41.1 Generalized anxiety disorder
CPT/HCPCS: 36415; 70450; 70553; 71045; 71275; 80048; 80053; 81003; 81015; 82274; 82805; 83605; 83615; 83735; 84100; 84145; 85025; 85044; 85049; 85610; 85730; 87040; 87045; 87046; 87070; 87086; 87088; 87205; 87804; 93306; 94002; 94003; 94640; 94660; 94760; 96365; 96375; 97162; 99285; A9577; G0378; J0330; J1170; J1720; J1940; J2250; J2405; J2543; J2704; J2920; J2930; J3010; J3370; J3475; J7030; J7512; J7605; J7606; P9047; Q9967

== ENCOUNTER 2018-09-04 19:15 | Observation (INO) | payer MEDICAID ==
--- OUTSIDE RECORDS SUMMARY | 2018-09-04 19:17 | XMS REPORT ---
[...] Dosage System Date Date Nicotine Step NDC 31238891239 14 MG/24HR Jun 17, Jul 01, Active 1 patch to 2 Transdermal 2017 2018 skin Once a day Nicotine Step NDC [id number] 21 MG/24HR Jun 17, Jul 29, Active 1 patch to 1 Transdermal 2017 2018 skin Once a day Nicotine Step NDC 90809790958 7 MG/24HR Jun 17, Jul 01, Active 1 patch to 3 Transdermal 2017 2018 skin Once a day Nicotine ND 76113867148 21-14-7 MG/24HR Jun 16, Inactive as directed Transdermal 2018 Once a day Results No Known Results Summary Purpose eClinicalWorks Submission
--- OUTSIDE RECORDS SUMMARY | 2018-09-04 19:17 | XMS REPORT ---
[...] End Date Status Dosage Date ProAir HFA [facility] [id number] 108 (90 Base) Jun 09, Active 2 puffs as MCG/ACT 2018 needed Inhalation every 6 hrs Results No Known Results Summary Purpose eClinicalWorks Submission
--- OUTSIDE RECORDS SUMMARY | 2018-09-04 19:17 | XMS REPORT ---
:1970 Author Organization eClinicalWorks Care Team Providers Name Role Phone Sam [facility] Provider Role Unavailable Allergies, Adverse Reactions, Alerts [...] End Status Dosage System Date Date Nicotine [facility] [id number] Jun 16Jun Active as MG/24HR 2017 Transdermal 2018 Once a day Chantix Continuing ND 49009655926 1 MG Orally Dec Inactive 1 tablet Month Craig Twice a day [address] [facility] 04675199133 0.5 MG Orally Active 1 tablet Twice a day as needed for anxiety Zoloft ND 48862806281 100 MG Orally Active 1 tablet Once a day Methadone HCl ND 21550904372 10 MG Orally Active 1 tablet Once a day Senokot S [facility] 36316446376 8.6-50 MG Active 1 tablet Orally Once a in the day evening as needed Ibuprofen ND 88169809544 600 MG Orally Active 1 tablet Three times a with food day or milk as needed ProAir HFA [facility] 39642995585 108 (90 Base) Jun 09, Active 2 puffs as MCG/ACT 2017 needed Inhalation every 6 hrs Gabapentin [facility] 24754533171 300 MG Orally Active 1 capsule Three times a day Omeprazole [facility] 80177701926 20 MG Orally Active 1 capsule Once a day Prochlorperazine [facility] 28750551078 10 MG Orally Active 1 tablet Maleate ever 6 - 8 as needed hours PRN for Nausea Zofran [facility] 81890231315 8 MG Orally Active 1 tablet every 8 hours as needed PRN for N/V Lidocaine HCl [facility] 18[address]-68511 2.5 % Active apply 30 Externally minutes once prior to PAC access Morphine Sulfate [facility] 96517779737 30 MG Orally Active 1 tablet every 8 hours as needed PRN PNV NDC 0 orally once Active 1 tab daily Creon [facility] 73127331903 11739-48946 Active 1-3 cap UNIT Orally with meals 3-5 times per and snacks day Results No Known Results Summary Purpose eClinicalWorks Submission
[2018-09-04] MEDS ORDERED: NA CHLORIDE 0.9% 1,000 ML ONE (20:18)
--- NOTE | 2018-09-04 20:59 | RAD REPORT ---
EXAM DESCRIPTION: CT - Head Brain Wo Cont - 09/04/2018 8:27 pm CLINICAL HISTORY: Weakness, nausea, vomiting, history of lung cancer, history of pancreatic cancer COMPARISON: None. TECHNIQUE: Axial 5 mm thick images of the head were obtained without IV contrast. All CT scans are performed using dose optimization technique as appropriate and may include automated exposure control or mA/KV adjustment according to patient size. FINDINGS: In the right frontal lobe white matter adjacent to the frontal horn right lateral ventricl e there is a 13 millimeter rounded area of increased density. Attenuation value is 37 Hounsfield unit s. This is less than typically seen for acute blood. With the lung cancer and pancreatic cancer histo ry, metastatic lesion would be suspected. There is a mild rim of edema in the surrounding white matte r. An amorphous area of diminished attenuation is present in the medial right occipital lobe approxim ately 14 mm in size. There may be an additional metastatic lesion in this region. An acute hemorrhagi c process is doubtful. No acute cortical based infarction. No sulcal effacement. No abnormal extra-ax ial fluid collections. Ventricles are normal. A 13 millimeter area of decreased attenuation is seen in the body of the corpus callosum to the right of midline. Again, metastatic focus would be suspecte d. Mastoid air cells and visualized portions of the paranasal sinuses are clear. No acute bony findings. IMPRESSION: Probable metastatic lesion in the right frontal lobe white matter with small rim of surr ounding edema. Amorphous diminished attenuation medial right occipital lobe and body of the corpus callosum suspecte d to be metastatic foci as well. An old infarction would be additional consideration.
[2018-09-04 21:08] LABS: Absolute Lymphocytes (CBC) 0.8 K/uL (0.7-4.9); Absolute Monocytes 0.5 K/uL (0.1-1.3); Absolute Neutrophil 8.7 K/uL (1.8-8.0); Basophils % 0.4 % (0-1.3); Eosinophils % 0.1 % (0-4.4); Hematocrit 32.3 % (36.0-45.0); Lymphocytes % 8.3 % (15.3-44.8); MPV 6.7 fL (7.6-11.3); Monocytes % 5.1 % (3.3-12.3); RBC Red Blood Cell Count 3.54 M/uL (3.86-4.86)
[2018-09-04 21:24] LABS: ALT/SGPT 8 U/L (12-78); AST/SGOT 25 U/L (15-37); Albumin 1.8 g/dL (3.4-5.0); Alkaline Phosphatase 109 U/L (45-117); BUN Blood Urea Nitrogen 7 mg/dL (7-18); Bicarbonate 40 mmol/L (21-32); Bilirubin Direct 0.5 mg/dL (0-0.2); Bilirubin Total 0.8 mg/dL (0.2-1.0); Glucose Level 120 mg/dL (74-106); Lipase 451 U/L (73-393); Potassium 4.1 mmol/L (3.5-5.1); Protein, Total 6.8 g/dL (6.4-8.2); Sodium Level 140 mmol/L (136-145)
--- NOTE | 2018-09-04 22:16 | EDPHYS ---
Physician Documentation [facility] Name: Shy Easley Age: 48 yrs Sex: Female : 1970 Arrival Date: 09/04/2018 Time: 19:18 Bed 26 Private MD: ED Physician Kerwin Perez HPI: 09/04 22:12 This 48 yrs old Female presents to ER via EMS with complaints of nauseated. gs 22:12 The patient presents with decreased mental status. Unable to obtain HPI due to altered gs mental status. pt states she is nauseated, no vomiting diarrhea or ab pain. pt is clearly has decreased mental status. takes morphine po.. 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 - Social history:: Smoking status: Patient uses tobacco products. - Ebola Screening: : No symptoms or risks identified at this time. ROS: 22:12 Unable to obtain ROS due to altered mental status. gs Exam: 22:12 Head/Face: Normocephalic, atraumatic. Eyes: Pupils equal round and reactive to light, gs extra-ocular motions intact. Lids and lashes normal. Conjunctiva and sclera are non-icteric and not injected. Cornea within normal limits. Periorbital areas with no swelling, redness, or edema. ENT: Nares patent. No nasal discharge, no septal abnormalities noted. Tympanic membranes are normal and external auditory canals are clear. Oropharynx with no redness, swelling, or masses, exudates, or evidence of obstruction, uvula midline. Mucous membranes moist. Neck: Trachea midline, no thyromegaly or masses palpated, and no cervical lymphadenopathy. Supple, full range of motion without nuchal rigidity, or vertebral point tenderness. No Meningismus. Chest/axilla: Normal chest wall appearance and motion. Nontender with no deformity. No lesions are appreciated. Cardiovascular: Regular rate and rhythm with a normal S1 and S2. No gallops, murmurs, or rubs. Normal PMI, no JVD. No pulse deficits. Respiratory: Lungs have equal breath sounds bilaterally, clear to auscultation and percussion. No rales, rhonchi or wheezes noted. No increased work of breathing, no retractions or nasal flaring. Abdomen/GI: Soft, non-tender, with normal bowel sounds. No distension or tympany. No guarding or rebound. No evidence of tenderness throughout. Back: No spinal tenderness. No costovertebral tenderness. Full range of motion. Skin: Warm, dry with normal turgor. Normal color with no rashes, no lesions, and no evidence of cellulitis. MS/ Extremity: Pulses equal, no cyanosis. Neurovascular intact. Full, normal range of motion. 22:12 Constitutional: The patient appears awake. 22:12 Neuro: Orientation: to person, place \T\ time. Cranial nerves: CN II- XII are normal as tested, Motor: moves all fours, Sensation: no obvious gross deficits, mild slurring of speech. Vital Signs: 19:28 BP 109 / 82; Pulse 82; Resp 20; Temp 98.0; Pulse Ox 93% 3 lpm ; wh 20:30 BP 110 / 94; Pulse 84; Resp 19; Pulse Ox 94% 3 lpm ; wh 21:20 BP 126 / 68; Pulse 82; Resp 18; Pulse Ox 99% on BiPAP; wh 22:30 BP 100 / 59; Pulse 75; Resp 19; Pulse Ox 97% on BiPAP; wh 23:53 BP 116 / 63; Pulse 82; Resp 19; Pulse Ox 95% 3 lpm ; wh MDM: 19:56 Patient medically screened. 22:12 Differential Diagnosis: CVA, electrolyte abnormality, alcohol intoxication, overdose, gs volume depletion. Data reviewed: vital signs, nurses notes. Data reviewed: old medical records, lab test result(s), radiologic studies. Counseling: I had a detailed discussion with the patient and/or guardian regarding: the historical points, exam findings, and any diagnostic results supporting the discharge/admit diagnosis, lab results, radiology results, the need for further work-up and treatment in the hospital, says bipap only no intubation. Response to treatment: the patient's symptoms have mildly improved after treatment, and as a result, I will admit patient. 09/04 20:00 Order name: Basic Metabolic Panel; Complete Time: 22:15 09/04 20:00 Order name: CBC with Diff; Complete Time: 00:29 09/04 20:00 Order name: Hepatic Function; Complete Time: 22:15 09/04 20:00 Order name: Lipase; Complete Time: 22:15 09/04 20:00 Order name: ABG; Complete Time: 00:29 09/04 21:16 Order name: Manual Differential; Complete Time: 00:29 [facility] 09/04 20:00 Order name: IV Saline Lock; Complete Time: 20:20 09/04 20:00 Order name: Labs collected and sent; Complete Time: 20:20 09/04 20:00 Order name: CT Head Brain wo Cont; Complete Time: 21: 09/04 22:15 Order name: EKG - Nurse/Tech; Complete Time: 23:07 Administered Medications: 20:57 Drug: NS 0.9% 1000 ml Route: IV; Rate: 1 bolus; Site: right antecubital; 22:52 Follow up: Response: No adverse reaction; IV Status: Completed infusion Disposition: 22:15 Critical Care:. Disposition: 09/04/18 22:16 Hospitalization ordered by Jareth Mejia for Inpatient Admission. Preliminary diagnosis is Acute respiratory failure with hypercapnia. - Bed requested for Telemetry/MedSurg (Inpatient). - Status is Inpatient Admission. - Condition is Stable. - Problem is new. - Symptoms have improved. UTI on Admission? No Critical care time excluding procedures: 22:15 Critical care time: Bedside Care: 10 minutes, Consultation: 10 minutes, Family gs Intervention: 10 minutes. Total time: 30 minutes Signatures: Dispatcher Med[employer] Allegra Rojas RN RN kl Habalo, Winsy Kerwin Perez MD MD Corrections: (The following items were deleted from the chart) 22:16 22:16 Hospitalization Ordered by Jareth Mejia MD for Inpatient Admission. Preliminary diagnosis is Acute respiratory failure with hypercapnia. Bed requested for Telemetry/MedSurg (Inpatient). Status is Inpatient Admission. Condition is Stable. Problem is new. Symptoms have improved. UTI on Admission? No. 09/05 00:03 09/04 22:16 09/04/2018 22:16 Hospitalization Ordered by Jareth Mejia MD for Inpatient Admission. Preliminary diagnosis is Acute respiratory failure with hypercapnia. Bed requested for Intensive Care Unit. Status is Inpatient Admission. Condition is Stable. Problem is new. Symptoms have improved. UTI on Admission? No. gs 09/05 01:19 00:03 09/04/2018 22:16 Hospitalization Ordered by Jareth Mejia MD for Inpatient Admission. Preliminary diagnosis is Acute respiratory failure with hypercapnia. Bed requested for Telemetry/MedSurg (Inpatient). Status is Inpatient Admission. Condition is Stable. Problem is new. Symptoms have improved. UTI on Admission? No. kl
--- NOTE | 2018-09-04 22:16 | ER ---
Nurse's Notes [facility] Name: Shy Easley Age: 48 yrs Sex: Female : 1970 Arrival Date: 09/04/2018 Time: 19:18 Bed 26 Private MD: Diagnosis: Acute respiratory failure with hypercapnia Presentation: 09/04 19:19 Presenting complaint: EMS states: States Pt called EMS complaining of nausea and wh vomiting. Pt has Hx of Brain, Pancreatic and Lung Cancer undergoing Radiation therapy everyday. Pt has nausea meds which she states was DCd by her Physician. Pt also has swollen left hand and some small open wound. Pt also complaining of L abd/hip pain from fall from 2-3 days ago. Transition of care: patient was not received from another setting of care. Onset of symptoms was September 04, 2018 at 12:00. Risk Assessment: Do you want to hurt yourself or someone else? Patient reports no desire to harm self or others. Initial Sepsis Screen: Does the patient meet any 2 criteria? No. Patient's initial sepsis screen is negative. Does the patient have a suspected source of infection? No. Patient's initial sepsis screen is negative. Care prior to arrival: None. 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 - Social history:: Smoking status: Patient uses tobacco products. - Ebola Screening: : No symptoms or risks identified at this time. Screenin:27 Abuse screen: Denies threats or abuse. Denies injuries from another. Nutritional wh screening: No deficits noted. Tuberculosis screening: No symptoms or risk factors identified. Fall Risk Fall in past 12 months (25 points). Assessment: 20:00 Derm: Skin is intact, is healthy with good turgor, Skin is pink, warm \T\ dry. normal. wh 20:04 General: Appears in no apparent distress. comfortable, Behavior is calm, cooperative, wh appropriate for age. Pain: Denies pain. 20:08 Neuro: Level of Consciousness is awake, obeys commands, lethargic, Oriented to person, wh place, time, situation. Cardiovascular: Denies chest pain, Heart tones S1 S2 Pulses are all present. Respiratory: Airway is patent Respiratory effort is even, unlabored, Respiratory pattern is regular, symmetrical, Breath sounds are diminished bilaterally. GI: Abdomen is flat, non-distended, Reports nausea, vomiting. : No signs and/or symptoms were reported regarding the genitourinary system. EENT: No signs and/or symptoms were reported regarding the EENT system. Musculoskeletal: Range of motion: intact in all extremities. 21:09 Reassessment: Patient appears in no apparent distress at this time. Patient and/or wh family updated on plan of care and expected duration. Pain level reassessed. Patient is alert, oriented x 3, equal unlabored respirations, skin warm/dry/pink. Patient denies pain at this time. 22:15 Reassessment: Patient appears in no apparent distress at this time. Patient and/or wh family updated on plan of care and expected duration. Pain level reassessed. Patient is alert, oriented x 3, equal unlabored respirations, skin warm/dry/pink. Patient denies pain at this time. 23:11 Reassessment: Patient appears in no apparent distress at this time. Patient and/or wh family updated on plan of care and expected duration. Pain level reassessed. Patient is alert, oriented x 3, equal unlabored respirations, skin warm/dry/pink. Patient denies pain at this time. 23:50 Reassessment: Patient appears in no apparent distress at this time. Patient and/or wh family updated on plan of care and expected duration. Pain level reassessed. Patient is alert, oriented x 3, equal unlabored respirations, skin warm/dry/pink. Pt now refusing BIPAP, aware, placed back on 3LNC Patient denies pain at this time. Vital Signs: 19:28 BP 109 / 82; Pulse 82; Resp 20; Temp 98.0; Pulse Ox 93% 3 lpm ; wh 20:30 BP 110 / 94; Pulse 84; Resp 19; Pulse Ox 94% 3 lpm ; wh 21:20 BP 126 / 68; Pulse 82; Resp 18; Pulse Ox 99% on BiPAP; wh 22:30 BP 100 / 59; Pulse 75; Resp 19; Pulse Ox 97% on BiPAP; wh 23:53 BP 116 / 63; Pulse 82; Resp 19; Pulse Ox 95% 3 lpm ; ED Course: 19:18 Patient arrived in ED. 19:23 Triage completed. 19:25 Danyell Burks is Primary Nurse. 19:28 Arm band placed on right wrist. 19:28 Patient has correct armband on for positive identification. Pulse ox on. NIBP on. 19:38 Kerwin Perez MD is Attending Physician. 20:[address] 20:26 CT completed. Patient tolerated procedure well. Patient moved back from CT. mt 20:26 CT Head Brain wo Cont In Process Unspecified. EDUT 22:16 Jareth Mejia MD is Hospitalizing Provider. 23:07 EKG done, by ED staff, reviewed by Kerwin Perez MD. ag4 23:47 No provider procedures requiring assistance completed. 09/05 01:19 Patient admitted, IV remains in place. Administered Medications: 09/04 20:57 Drug: NS 0.9% 1000 ml Route: IV; Rate: 1 bolus; Site: right antecubital; 22:52 Follow up: Response: No adverse reaction; IV Status: Completed infusion Outcome: 22:16 Decision to Hospitalize by Provider. 09/05 01:18 Admitted to Med/surg accompanied by nurse, via stretcher, room 201, Report called to Adrienne Burks RN Condition: improved Instructed on the need for admit, Demonstrated understanding of 01:19 Patient left the ED. Signatures: Dispatcher [employer] EDUT Lyla Oliveira Nathan nj Habalo, Winsy Kerwin Perez MD MD Hugo Briceno ag4 Corrections: (The following items were deleted from the chart) 09/04 23:46 20:04 Pain: Denies pain. [facility] :49 23:45 Neuro: Level of Consciousness is awake, alert, obeys commands, Oriented to person, place, time, situation, 49 23:45 Cardiovascular: Denies chest pain, Heart tones S1 S2 Pulses are all present. [facility] :49 23:45 Respiratory: Airway is patent Respiratory effort is even, unlabored, Respiratory pattern is regular, symmetrical, Breath sounds are diminished bilaterally. 49 23:45 GI: Abdomen is flat, non-distended, Reports nausea, vomiting, [facility] 23:45 : No signs and/or symptoms were reported regarding the genitourinary system. [facility] 23:45 EENT: No signs and/or symptoms were reported regarding the EENT system. [facility] 23:45 Derm: Skin is intact, is healthy with good turgor, Skin is pink, warm \T\ dry. wh normal, 23:45 Musculoskeletal: Range of motion: intact in all extremities, [facility] 09/05 00:15 09/04 21:20 BP 126 / 68; Pulse 82bpm; Resp 18bpm; Pulse Ox 99% 3 lpm; [facility] 09/05 00:16 09/04 20:08 Neuro: Level of Consciousness is awake, alert, obeys commands, Oriented to person, place, time, situation,
[2018-09-04 23:20] LABS: Blood Morphology Comment NOT SEEN (NOT SEEN); Platelet Estimate ADEQ
--- NOTE | 2018-09-04 23:43 | P.HP ---
Certification for Inpatient Patient admitted to: Observation With expected LOS: <2 Midnights Practitioner: I am a practitioner with admitting privileges, knowledge of patient current condition, hospital course, and medical plan of care. Services: Services provided to patient in accordance with Admission requirements found in Title 42 Section 412.3 of the Code of Federal Regulations Patient History Date of Service: 09/04/18 Reason for admission: acute respiratory failure, hypercapnia History of Present Illness: Ms Easley is a 48 years old woman with history of COPD, stage IV pancreatic cancer with metastatic disease in the lungs and brain, chronic back pain, came to ED complaining of nausea and vomiting. Her daughter called 911. No history of fever or chills. At arrival the patient was obtunded but easy to arouse. ABG shows PH 7.22 PCO2 98. She was placed on BiPAP. gradually her mentation improved. At my encounter, she was able to tell me that she took more morphine than should be, but she feels better now. The patient was reluctant to be admitted, but finally accepted to spend the night in the hospital to evaluate her progress. The patient has a few lesions on her left arm. No fever in ED. Lab work shows normal WBC count. Allergies Tetracyclines Allergy (Verified 02/15/17 16:30) Hives Home medications list reviewed: Yes Home Medications: ALPRAZolam [Xanax*] 0.5 mg PO BID PRN 08/01/18 Dexamethasone [Decadron] 4 mg PO BID 08/01/18 Gabapentin 300 mg PO TID 08/01/18 Morphine Sulfate [Morphine Sulfate ER] 30 mg PO Q8H 08/01/18 Omeprazole 20 mg PO DAILY 08/01/18 Prochlorperazine Maleate [Compazine] 10 mg PO Q8H PRN 08/01/18 Sertraline [Zoloft*] 100 mg PO DAILY 08/01/18 Venlafaxine HCl [Venlafaxine HCl ER] 150 mg PO BEDTIME 08/01/18 Fluticasone/Salmeterol [Advair 250-50 Diskus] 1 each IH BID 30 Days blst.w.dev 08/14/18 Ipratropium Neb [Atrovent Neb] 0.5 mg IH TID PRN #90 amp 08/19/18 Levalbuterol [Xopenex] 1.25 mg IH TID PRN #90 vial 08/19/18 - Past Medical/Surgical History Diabetic: No -: COPD -: Obesity -: GERD -: Depression -: Tobacco abuse -: Fibromyalgia -: Tonsillectomy -: Appendectomy -: -: Hysterectomy Psychosocial/ Personal History: The patient is . She is originally from [place]. She is visiting her daughter in the area. She has 2 children. 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 - Family History Mother -: Heart disease, Lung disease Notes: COPD Brother -: Heart disease Sister -: Other (see notes) Notes: COPD - Social History Smoking Status: Former smoker Alcohol use: No CD- Drugs: No Caffeine use: No Place of Residence: Home Review of Systems 10-point ROS is otherwise unremarkable Physical Examination - Physical Exam General: Alert, In no apparent distress, Oriented x3 HEENT: Atraumatic, PERRLA, Mucous membr. moist/pink, EOMI, Sclerae nonicteric Neck: Supple, 2+ carotid pulse no bruit, No LAD, Without JVD or thyroid abnormality Respiratory: Diminished, Crackles/rales (bibasilar crackles) Cardiovascular: Normal S1 S2, No gallops Gastrointestinal: Normal bowel sounds, No tenderness Musculoskeletal: No tenderness Integumentary: No rashes Neurological: Normal speech, Normal strength at 5/5 x4 extr, Normal tone, Normal affect Lymphatics: No axilla or inguinal lymphadenopathy - Studies Laboratory Data (last 24 hrs) 09/04/18 20:55: WBC 10.1, Hgb 10.2 L, Hct 32.3 L, Plt Count 183 09/04/18 20:55: Sodium 140, Potassium 4.1, BUN 7, Creatinine 0.41 L, Glucose 120 H, Total Bilirubin 0.8, AST 25, ALT 8 L, Alkaline Phosphatase 109, Lipase 451 H Assessment and Plan - Problems (Diagnosis) (1) CO2 narcosis Current Visit: Yes Status: Acute (2) Pancreatic cancer metastasized to intra-abdominal lymph node Onset Date: 08/03/18 Current Visit: No Status: Chronic (3) Respiratory failure Current Visit: No Status: Resolved Qualifiers: Chronicity: acute on chronic Respiratory failure complication: hypercapnia Qualified Code(s): J96.22 - Acute and chronic respiratory failure with hypercapnia - Plan The patient will be admitted to the hospital due to acute respiratory failure with hypercapnia, secondary to morphine overdose. The patient signifincalty improved already after been on BiPAP. Will repeat ABG to evaluate progress. CT head shows metastatic brain disease. - Advance Directives Does patient have a Living Will: No Does patient have a Durable POA for Healthcare: No - Code Status/Comfort Care Code Status Assessed: Yes Code Status: Full Code
[2018-09-05 00:21] LABS: Arterial Blood Carboxyhemoglob 5.1 % (0-1.5); Blood Gas Oxyhemoglobin 89.9 % (94-97); Blood O2 Saturation 95.6 % (92-98.5)
[2018-09-05] MEDS ORDERED: ONDANSETRON 4 MG/2 ML VIAL IV PRN (00:48)
[2018-09-05] MEDS ORDERED: IPRATROPIUM BROM 0.5MG/2.5ML NEB PRN (00:48)
[2018-09-05] MEDS ORDERED: ALBUTEROL 2.5 MG/3 ML NEB SOL NEB PRN (00:48)
[2018-09-05] MEDS ORDERED: ACETAMINOPHEN 500 MG TAB PO PRN (00:48)
[2018-09-05 01:43] VITALS: O2SAT 95
[2018-09-05 01:51] VITALS: BMI 32.1
[2018-09-05 02:25] LABS: Urine Appearance TURBID; Urine Blood NEGATIVE (NEG); Urine Color ORANGE; Urine Glucose NEGATIVE (NEG); Urine Protein 1+ (NEG); Urine Specific Gravity 1.025 (1.005-1.030)
[2018-09-05 02:33] LABS: Urine Microscopic Reflex ORDER UMIC
[2018-09-05] MEDS: NA CHLORIDE 0.9% 1,000 ML IV SCH ×2 (02:51→10:48)
[2018-09-05 04:47] LABS: Urine Amorphous Sediment 4+ /HPF (NONE SEEN); Urine Bacteria <20 /HPF (<20); Urine Culture Reflex Order NOT NEEDED; Urine RBC <5 /HPF (NONE SEEN)
[2018-09-05 04:48] LABS: Urine Bilirubin NEGATIVE (NEG)
[2018-09-05 06:54] LABS: Absolute Lymphocytes (CBC) 1.5 K/uL (0.7-4.9); Absolute Monocytes 0.6 K/uL (0.1-1.3); Absolute Neutrophil 6.7 K/uL (1.8-8.0); Basophils % 0.4 % (0-1.3); Hematocrit 30.1 % (36.0-45.0); Lymphocytes % 17.1 % (15.3-44.8); MPV 7.1 fL (7.6-11.3); Monocytes % 6.8 % (3.3-12.3); RBC Red Blood Cell Count 3.31 M/uL (3.86-4.86)
[2018-09-05 07:05] LABS: BUN Blood Urea Nitrogen 7 mg/dL (7-18); Bicarbonate 38 mmol/L (21-32); Glucose Level 90 mg/dL (74-106); Potassium 4.1 mmol/L (3.5-5.1); Sodium Level 143 mmol/L (136-145)
[2018-09-05] MEDS ORDERED: PROCHLORPERAZINE 5 MG TAB PO PRN (07:58)
[2018-09-05] MEDS ORDERED: LEVALBUTEROL 1.25 MG/3 ML NEB IH PRN (07:58)
[2018-09-05] MEDS ORDERED: ALPRAZOLAM 0.5 MG TABLET PO PRN (07:58)
[2018-09-05] MEDS ORDERED: INFLUENZA VACCINE (for 3y+) 0.5 ML DOSE IMVAC ONE (08:00)
--- NOTE | 2018-09-05 08:07 | P.DS ---
Admission Date: 09/04/18 Discharge Date: 09/05/18 Primary Care Provider: Dr. Burke Vargas; Pulmonary-Dr. Rea Disposition: ROUTINE DISCHARGE Discharge Condition: GOOD Reason for Admission: acute respiratory failure, hypercapnia Consultations: none Procedures: CT head: FINDINGS: In the right frontal lobe white matter adjacent to the frontal horn right lateral ventricle there is a 13 millimeter rounded area of increased density. Attenuation value is 37 Hounsfield units. This is less than typically seen for acute blood. With the lung cancer and pancreatic cancer history, metastatic lesion would be suspected. There is a mild rim of edema in the surrounding white matter. An amorphous area of diminished attenuation is present in the medial right occipital lobe approximately 14 mm in size. There may be an additional metastatic lesion in this region. An acute hemorrhagic process is doubtful. No acute cortical based infarction. No sulcal effacement. No abnormal extra-axial fluid collections. Ventricles are normal. A 13 millimeter area of decreased attenuation is seen in the body of the corpus callosum to the right of midline. Again, metastatic focus would be suspected. Mastoid air cells and visualized portions of the paranasal sinuses are clear. No acute bony findings. IMPRESSION: Probable metastatic lesion in the right frontal lobe white matter with small rim of surrounding edema. Amorphous diminished attenuation medial right occipital lobe and body of the corpus callosum suspected to be metastatic foci as well. 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 Patient was evaluated in the emergency room. Patient with stage IV pancreatic cancer with metastasis to the brain and lung. Patient recently hospitalized for acute on chronic respiratory failure now with noninvasive ventilator. Patient apparently took higher dose of morphine at home. Patient was admitted for observation. Patient initially did not want to be admitted. Hospital Course: Patient presented with nausea, decreased mentation secondary to acute on chronic respiratory failure with hypercapnia secondary to narcotic overdose complicated with COPD on noninvasive ventilator at home. Patient apparently took too much of her morphine medication yesterday. Patient apparently took 60 mg of morphine yesterday. The patient was initially evaluated in the emergency room. Patient was admitted for observation. Patient initially did not want to stay. Overnight the patient did well. At discharge patient back to her normal mentation. No evidence of infection noted. Patient continues to remain stable. Patient with stage IV pancreatic cancer with metastasis to the lung and brain , depression, anemia of chronic disease and GERD. At discharge, Recommend to decrease morphine to 30 mg twice daily. Recommend for her cancer specialist/ pain management to monitor her morphine usage closely. Further adjustment may be required. At discharge she will continue with her non invasive ventilator and oxygen to maintain sats above 90%. Patient will follow up with Pulmonology , Oncology and Pain management. Patient will continue with Advair 1 puff twice daily and Xopenex/Atrovent nebs 1 unit dose 3 times a day as needed for shortness of breath for her COPD. For her chronic pain she is to continue with morphine ER 30 mg 1 pill twice daily. She also takes gabapentin 300 mg 3 times a day. Further adjustment can be done by pain management or her cancer specialist. Patient to follow up with her cancer specialist to further address her condition. If her condition continues to decline she should consider hospice. With hospice, better control of pain management could be monitored closely and provide her relief that is required for her condition. This was addressed on her last visit. Recommend to follow up with her PCP or oncology to further address Patient with depression. Patient will continue with Zoloft 100 mg daily. She also takes Xanax 0.5 mg twice daily as needed for anxiety. Vital Signs/Physical Exam: Temp Pulse Resp BP Pulse Ox 97.7 F 91 H 16 88/53 L 96 09/05/18 03:52 09/05/18 03:52 09/05/18 03:52 09/05/18 03:52 09/05/18 03:52 General: Alert, In no apparent distress, Oriented x3, Cooperative HEENT: Atraumatic Neck: Supple Respiratory: Clear to auscultation bilaterally, Normal air movement Cardiovascular: Normal pulses, Regular rate/rhythm Gastrointestinal: Normal bowel sounds, Soft and benign, Non-distended, No masses , No rebound, No guarding Musculoskeletal: No erythema, No tenderness, No warmth Integumentary: No tenderness/swelling, No erythema, No warmth, No cyanosis Neurological: Normal speech, Normal strength at 5/5 x4 extr, Normal tone, Normal affect Laboratory Data at Discharge: WBC 8.8 K/uL (4.3-10.9) 09/05/18 06:25 Hgb 9.6 g/dL (12.0-15.0) L 09/05/18 06:25 Hct 30.1 % (36.0-45.0) L 09/05/18 06:25 Plt Count 200 K/uL (152-406) 09/05/18 06:25 Sodium 143 mmol/L (136-145) 09/05/18 06:25 Potassium 4.1 mmol/L (3.5-5.1) 09/05/18 06:25 BUN 7 mg/dL (7-18) 09/05/18 06:25 Creatinine 0.34 mg/dL (0.55-1.3) L 09/05/18 06:25 Glucose 90 mg/dL (74-106) 09/05/18 06:25 Total Bilirubin 0.8 mg/dL (0.2-1.0) 09/04/18 20:55 AST 25 U/L (15-37) 09/04/18 20:55 ALT 8 U/L (12-78) L 09/04/18 20:55 Alkaline Phosphatase 109 U/L (45-117) 09/04/18 20:55 Lipase 451 U/L (73-393) H 09/04/18 20:55 Home Medications: ALPRAZolam [Xanax*] 0.5 mg PO BID PRN 08/01/18 Gabapentin 300 mg PO TID 08/01/18 Omeprazole 20 mg PO DAILY 08/01/18 Prochlorperazine Maleate [Compazine] 10 mg PO Q8H PRN 08/01/18 Sertraline [Zoloft*] 100 mg PO DAILY 08/01/18 Fluticasone/Salmeterol [Advair 250-50 Diskus] 1 each IH BID 30 Days blst.w.dev 08/14/18 Ipratropium Neb [Atrovent*] 0.5 mg IH TID PRN #90 amp 08/19/18 Levalbuterol [Xopenex*] 1.25 mg IH TID PRN #90 vial 08/19/18 Morphine Sulfate [Morphine Sulfate ER] 30 mg PO Q12HR 09/05/18 Patient Discharge Instructions: 1. Patient a follow up with a PCP in 1 week to follow up this hospitalization. 2. Patient presented with nausea, decreased mentation secondary to acute on chronic respiratory failure with hypercapnia secondary to narcotic overdose complicated with COPD on noninvasive ventilator at home. Patient apparently took too much of her morphine medication yesterday. Patient apparently took 60 mg of morphine yesterday. The patient was initially evaluated in the emergency room. Patient was admitted for observation. Patient initially did not want to stay. Overnight the patient did well. At discharge patient back to her normal mentation. No evidence of infection noted. Patient continues to remain stable. Patient with stage IV pancreatic cancer with metastasis to the lung and brain, depression, anemia of chronic disease and GERD. At discharge, Recommend to decrease morphine to 30 mg twice daily. Recommend for her cancer specialist/pain management to monitor her morphine usage closely. Further adjustment may be required. At discharge she will continue with her non invasive ventilator and oxygen to maintain sats above 90%. Patient will follow up with Pulmonology, Oncology and Pain management. Patient will continue with Advair 1 puff twice daily and Xopenex/ Atrovent nebs 1 unit dose 3 times a day as needed for shortness of breath for her COPD. For her chronic pain she is to continue with morphine ER 30 mg 1 pill twice daily. She also takes gabapentin 300 mg 3 times a day. Further adjustment can be done by pain management or her cancer specialist. Patient to follow up with her cancer specialist to further address her condition. If her condition continues to decline she should consider hospice. With hospice, better control of pain management could be monitored closely and provide her relief that is required for her condition. This was addressed on her last visit. Recommend to follow up with her PCP or oncology to further address. 3. Patient with depression. Patient will continue with Zoloft 100 mg daily. She also takes Xanax 0.5 mg twice daily as needed for anxiety. Diet: AHA Activity: Fall precautions Time spent managing pt's care (in minutes): 55
[2018-09-05] MEDS ORDERED: MORPHINE *EXTENDED RELEASE* 15 MG TAB PO SCH (09:00)
[2018-09-05] MEDS ORDERED: ENOXAPARIN 40 MG/0.4 ML SQ SCH (09:00)
[2018-09-05] MEDS ORDERED: SERTRALINE HCL 100 MG TAB PO SCH (09:00)
[2018-09-05] MEDS ORDERED: HOME MED 1 EA UNK (Fluticasone/Salmeterol [Advair 250-50 Diskus] 1 EACH) IH SCH (09:00)
[2018-09-05] MEDS: GABAPENTIN 300 MG CAP PO SCH ×2 (09:42→13:38)
--- NOTE | 2018-09-05 11:19 | RAD REPORT ---
EXAM DESCRIPTION: RAD - Chest Single View - 09/05/2018 10:44 am CLINICAL HISTORY: COPD, shortness of breath COMPARISON: August 06 chest film, August 24 radiation planning study TECHNIQUE: AP portable chest image was obtained 1040 hours . FINDINGS: Again noted are numerous large mass lesions throughout the lung parenchyma. Adjusting for technique differences, the pattern is not substantially different. Port-A-Cath remains in place. Ther e is greater density in the lower right lung field mass but no overall change in size. Superimposed pneumonia could easily be masked as the mass lesions occupy at least half of the lung vo lume. Heart and vasculature are normal. No measurable pleural effusion and no pneumothorax. No acute bony abnormality seen. No acute aortic findings suspected. IMPRESSION: Multiple lung masses are present throughout the lung mckeon not substantially different from July comparison. The size and number of lung masses could mask concurrent pneumonia.
[2018-09-05] MEDS ORDERED: MORPHINE 15 MG IR TAB PO PRN (12:33)
[2018-09-05 14:07] VITALS: BP 125/62; TEMP 97.3
--- NOTE | 2018-09-05 17:01 | RAD REPORT ---
EXAM DESCRIPTION: - UPPER EXTREMITY VENOUS UNILATE - 09/05/2018 4:54 pm CLINICAL HISTORY: Left arm pain and swelling COMPARISON: None. TECHNIQUE: Real-time sonographic evaluation of the left upper extremity deep venous systems was perf ormed. FINDINGS: Normal compressibility, flow augmentation, phasic flow and spontaneous flow are identified in the left upper extremity deep venous system. No intraluminal filling defects seen. Internal jugul ar and subclavian veins are normal as well. IMPRESSION: No DVT in the left upper extremity.
[2018-09-06] MEDS ORDERED: PANTOPRAZOLE 40MG TABLET PO SCH (06:30)
--- NOTE | 2018-09-06 21:47 | EKG ---
Test Date: 2018-09-04 Test Time: 23:02:12 [employer]: AG3 MEASUREMENT RESULTS: Intervals: Rate: 73 KS: 122 QRSD: 78 QT: 362 QTc: 398 [place]: P: 7 KS: 122 QRS: 72 T: 70 INTERPRETIVE STATEMENTS: Normal sinus rhythm Normal ECG Compared to ECG 02/15/2017 11:03:07 Sinus tachycardia no longer present Electronically Signed On 09-06-18 21:46:48 CDT by Ulises Rodriguez
== END 2018-09-05 17:40 | disposition home or self-care (01) ==
LOC: ER 19:15 → ERHOLD 23:24 → 2ND 09-05 00:46
PROVIDERS: ADMIT Internal Medicine; ATTEND Internal Medicine
DX: R11.0 Nausea (principal); J96.22 Acute and chronic respiratory failure with hypercapnia; T40.601A Poisoning by unspecified narcotics, accidental (unintentional), initial encounter; Y92.9 Unspecified place or not applicable; C25.9 Malignant neoplasm of pancreas, unspecified; C78.00 Secondary malignant neoplasm of unspecified lung; C79.31 Secondary malignant neoplasm of brain; G89.3 Neoplasm related pain (acute) (chronic); F32.9 Major depressive disorder, single episode, unspecified; D64.9 Anemia, unspecified; E66.9 Obesity, unspecified; Z68.32 Body mass index [BMI] 32.0-32.9, adult; F17.210 Nicotine dependence, cigarettes, uncomplicated; J44.9 Chronic obstructive pulmonary disease, unspecified
CPT/HCPCS: 36415; 70450; 71045; 80048; 80076; 81003; 81015; 82805; 83690; 85025; 93005; 93971; 94660; 96360; 96361; 99285; G0378; J1650; J2405; J7030